=== PATIENT | female | born 1945 | race Caucasian/White ===

== ENCOUNTER 2019-11-12 11:51 | Outpatient (RCR) | payer MEDICARE, OTHER, SELFPAY ==
--- NOTE | 2019-11-12 13:09 | PTOPEVAL ---
Thank you for referring this patient to [facility]. Please review, sign, date and return this plan of care JOSE CARLOS. I agree with and certify that the following plan of care is medically necessary. Referring Physician Date Admitting Provider: Attending Provider: Nam Murillo MD Referring Provider: *PT Outpatient Evaluation Start: 11/12/19 12:07 Freq: Status: Active Protocol: Document 11/12/19 12:07 MARTINEZ (Rec: 11/12/19 12:40 MARTINEZ [id number]) Therapy Assessment Status Assessment Status Assessment Status Evaluation Evaluation Information Problem Diagnosis low back pain/weakness Onset 10/28/19 Subjective Information Pt. reports long hx of back Query Text:As Reported By Patient/ pain. she states that she Family deals with the pain using pain pills. She takes 2 different pain medications daily ( oxycotin and morphin). She reports that she has also noted some issues with her balance. She fell in the snow recently and couldnt get herself upright. She reports that her goal for therapy is to decrease pain and improve her balance. Prior Level of Function Activity Level (Last 3 Months) Hand Dominance Right Activity of Daily Living Ability Independent Indoor/Home Mobility Independent Community Mobility Independent Stairs Ability Independent Functional Cognition (Planning, Shopping Independent , Taking Medications) Cooking Yes Cleaning No Laundry Yes Shopping Yes Driving Yes Comments Additional Prior Level of Function Pt. reports that she cannot Comments mop or vacuum do to her back pain. Pain Assessment Pain Scale Pain Scale Used Numeric (1 - 10) Self Report Pain Assessment Lower Back Reported Pain Level 5 Pain Frequency Chronic,Continuous Current Pain Intensity 5 Lowest Pain Intensity 5 Greatest Pain Intensity 8 Pain Aggravating Factors ADL's,Bending,Exercise/ Activity,Lifting,Stair Climbing,Walking Pain Relief Interventions Used By Medication Patient Pain Score Pain Score 5: Self Report Cerv
--- NOTE | 2019-11-23 13:11 | PCPTNOTE ---
11/23/19- pt cancelled apt today secondary to illness. - HM.
--- NOTE | 2019-12-11 11:07 | PCPTNOTE ---
12/11/19 - patient has called and cancelled therapy for this date today. JTF
== END 2019-12-14 08:41 | disposition home or self-care (01) ==
LOC: CHSPT 11:51
PROVIDERS: Visit Provider Internal Medicine
DX: M54.5 Low back pain (principal); R53.1 Weakness
CPT/HCPCS: 97014; 97110; 97112; 97140; 97162; G0283

== ENCOUNTER 2021-05-08 13:51 | Outpatient (CLI) | payer MEDICARE, OTHER, SELFPAY ==
--- NOTE | ~2021-05-08 | DEXA_ITS ---
Bone Density Report Name: Eleonora Fregoso Age: 75 Sex: Female Ethnicity: White Date of : 1945 Indication: postmenopausal; screening for osteoporosis; Referring Provider: Nam Murillo Study: Bone densitometry was performed. Exam Date: May 08, 2021 Accession number: [id number] Bone Density: Region BMD T-score Z-score Classification AP Spine(L1, L2) 1.423 4.0 6.2 Normal Femoral Neck (Left) 0.573 -2.5 -0.5 Osteoporosis Total Hip (Left) 0.746 -1.6 0.1 Osteopenia Femoral Neck (Right) 0.610 -2.2 -0.2 Osteopenia Total Hip (Right) 0.766 -1.4 0.2 Osteopenia Femoral Neck Mean 0.592 -2.3 -0.3 Osteopenia Total Hip Mean 0.756 -1.5 0.2 Osteopenia World Health Organization criteria for BMD impression classify patients as: Normal (T-score at or above -1.0), Osteopenia (T-score between -1.0 and -2.5), or Osteoporosis (T-score at or below -2.5). 10-year Fracture Risk: FRAX not reported because: Some T-score for Spine Total or Hip Total or Femoral Neck at or below -2.5 Clinical Information Provided by Patient: Has used the following medications: Vitamin D, Calcium Patient maximum height was 68 Menopause Age: 52 No regular weight bearing exercise Drinks caffeinated beverages Onset of menses at age 15 Number of children 1 Impression: The patient has osteoporosis, based on the Left Femoral Neck T-score. Discussion: INCREASED RISK OF FRACTURE. BONE DENSITY IS UNDESIRABLY LOW AT ONE OR MORE SKELETAL SITES, CONSISTENT WITH POSTMENOPAUSAL OSTEOPOROSIS. This patient's lowest T-score meets the World Health Organization's (WHO) criteria for osteoporosis at one or more sites (T-score -2.5 or below). In untreated patients, the risk of osteoporotic fracture increases approximately two-fold for each 1.0 SD decrease in T-score. Low bone density is not the only risk factor for fracture; also consider factors such as patient's age, frailty or poor health, risk of falling, risk of injury, previous osteoporotic fracture, family history of osteoporosis, cigarette smoking, low body weight, etc. Not everyone with low bone mineral density has osteoporosis; osteomalacia and other metabolic bone disorders should also be considered. Patients who have osteoporosis should be evaluated for specific diseases and conditions (secondary causes) that may cause or contribute to bone loss. The [place] [employer] Endocrinologists (AACE) and National Osteoporosis Foundation (NOF) recommend pharmacologic intervention for all postmenopausal women whose T-score is in this range. The patient should follow a healthful lifestyle (good nutrition with adequate calcium and vitamin D, and appropriate weight-bearing exercise). Follow-Up: Consider a repeat BMD and Vertebral Fracture Assessment (VFA) exam in 2 yea
== END 2021-05-08 13:52 | disposition home or self-care (01) ==
LOC: CHSIMG 13:55
PROVIDERS: PCP Internal Medicine; Visit Provider Internal Medicine
DX: M81.0 Age-related osteoporosis without current pathological fracture (principal)
CPT/HCPCS: 77080

== ENCOUNTER 2021-06-06 13:01 | Outpatient (CLI) | payer MEDICARE, OTHER, SELFPAY ==
[2021-06-06 13:15] VITALS: BP 119/55; PULSE 77; RESP 16; TEMP 36.7; O2SAT 97
[2021-06-06] MEDS: DENOSUMAB 60 MG/ML SYRINGE SUB-Q (13:26)
--- NOTE | 2021-06-06 13:41 | PC.NURSE ---
13:15 Patient received 1st Prolia injection subcantaneously right upper outer arm. Patient tolerated well. Education information about Prolia given to patient. Patient waited for 15 minutes after injection. No side effects noted. No redness. No warmth at injection site. Patient safely left facility, ambulated with assist from her cane. --Choco Gregorio RN
== END 2021-06-06 13:02 | disposition home or self-care (01) ==
LOC: CHSOUTPT 13:06 → CHSTREATRM 13:12
PROVIDERS: PCP Internal Medicine; Visit Provider Internal Medicine
DX: M81.0 Age-related osteoporosis without current pathological fracture (principal)
CPT/HCPCS: 96372; J0897

== ENCOUNTER 2021-12-05 13:53 | Outpatient (CLI) | payer MEDICARE, OTHER, SELFPAY ==
[2021-12-05 14:04] VITALS: BMI 34.8
[2021-12-05 14:05] VITALS: BP 128/60; PULSE 76; RESP 14; TEMP 36.6; O2SAT 99
[2021-12-05] MEDS: DENOSUMAB 60 MG/ML SYRINGE SUB-Q (14:20)
--- NOTE | 2021-12-05 14:55 | PC.NURSE ---
Patient here for Prolia injection. She gets it q 6 months. Education given. No concerns. Has had it before. Prolia injection administered. Tolerated well. Safe exit of hospital. Will return April- will call closer to April to schedule.
== END 2021-12-05 13:54 | disposition home or self-care (01) ==
PROVIDERS: PCP Internal Medicine; Visit Provider Internal Medicine
DX: M81.0 Age-related osteoporosis without current pathological fracture (principal)
CPT/HCPCS: 96372; J0897

== ENCOUNTER 2022-05-10 13:13 | Outpatient (CLI) | payer MEDICARE, OTHER, SELFPAY ==
--- NOTE | 2022-05-10 13:20 | PC.NURSE ---
here for op injection
[2022-05-10] MEDS: DENOSUMAB 60 MG/ML SYRINGE SUB-Q (13:25)
--- NOTE | 2022-05-10 13:38 | PC.NURSE ---
discharged via wheel chair back to [facility] to collect her belongings to go home
== END 2022-05-10 13:14 | disposition home or self-care (01) ==
LOC: CHSTREATRM 13:15
PROVIDERS: PCP Internal Medicine; Visit Provider Internal Medicine
DX: M81.0 Age-related osteoporosis without current pathological fracture (principal)
CPT/HCPCS: 90853; 96372; J0897

== ENCOUNTER 2022-06-18 10:00 | Outpatient (RCR) | payer MEDICARE, OTHER, SELFPAY | END 2022-06-20 23:59 | disposition home or self-care (01) | LOC: CHSSENLIFE 10:00 | PROVIDERS: PCP Internal Medicine; Visit Provider Psychiatry & Neurology Psychiatry | DX: F33.2 Major depressive disorder, recurrent severe without psychotic features (principal); F41.9 Anxiety disorder, unspecified | CPT/HCPCS: 90792; 90837; 90853; 99213; G0463 ==

== ENCOUNTER 2022-08-08 16:26 | Outpatient (CLI) | payer MEDICARE, OTHER, SELFPAY ==
--- NOTE | ~2022-08-08 | XR_ITS ---
XR knee LT min 4V 08/08/2022 17:37 Indication: Left knee pain Procedure: 5 views left knee Comparison: 10/26/2019 Findings: There is severe tricompartment osteoarthritis of the left knee. Small joint effusion. No ac dino fracture, subluxation or dislocation. Impression: 1: Severe osteoarthritis of the left knee. Reviewed, dictated and finalized at location B. Impression: 1: Severe osteoarthritis of the left knee.
== END 2022-08-08 16:27 | disposition home or self-care (01) ==
LOC: CHSIMG 16:29
PROVIDERS: PCP Internal Medicine; Visit Provider Internal Medicine
DX: R51.9 Headache, unspecified (principal); M25.562 Pain in left knee; R11.0 Nausea
CPT/HCPCS: 73564

== ENCOUNTER 2022-08-25 09:49 | Outpatient (CLI) | payer MEDICARE, OTHER, SELFPAY ==
--- NOTE | ~2022-08-25 | MR_ITS ---
EXAMINATION: MR brain/brain stem wo con DATE: 08/25/2022 11:11 INDICATION: Severe headache. TECHNIQUE: Magnetic resonance imaging (MRI) of the brain and brainstem was performed without intraven ous contrast. COMPARISON: Brain MRI 03/13/2017 FINDINGS: There are scattered areas of nonspecific increased T2-weighted signal intensity in the cere bral white matter and emmett, which is within normal limits for the patient's age. There is no intracra nial hemorrhage, acute infarction, or abnormal intracranial mass lesion. The ventricles are normal in size. The orbits are normal. There is mild mucosal thickening in the paranasal sinuses. The mastoid air cells are normal. IMPRESSION: 1. Normal aging brain. Reviewed, dictated and finalized at location A. IMPRESSION: 1. Normal aging brain.
== END 2022-08-25 09:50 | disposition home or self-care (01) ==
LOC: CHSIMG 09:51
PROVIDERS: PCP Internal Medicine; Visit Provider Internal Medicine
DX: R51.9 Headache, unspecified (principal); R11.0 Nausea; M25.562 Pain in left knee
CPT/HCPCS: 70551

== ENCOUNTER 2022-09-20 10:00 | Outpatient (RCR) | payer MEDICARE, OTHER, SELFPAY | END 2022-09-23 23:59 | disposition home or self-care (01) | LOC: CHSSENLIFE 10:00 | PROVIDERS: PCP Internal Medicine; Visit Provider Psychiatry & Neurology Psychiatry | DX: F33.2 Major depressive disorder, recurrent severe without psychotic features (principal); F41.9 Anxiety disorder, unspecified | CPT/HCPCS: 90853; 99213; 99214; G0463 ==

== ENCOUNTER 2022-11-13 09:54 | Outpatient (CLI) | payer MEDICARE, OTHER, SELFPAY ==
[2022-11-13] MEDS: DENOSUMAB 60 MG/ML SYRINGE SUB-Q (10:11)
[2022-11-13 10:20] VITALS: BP 160/73; PULSE 86; RESP 14; TEMP 36.4; O2SAT 95
--- NOTE | 2022-11-13 10:22 | PC.NURSE ---
Patient here for q 6 month Prolia injection. Education given. No concerns voiced. Reports has tolerated all ones in the past. Prolia injection administered. SEE MAR. Tolerated well. Safe exit of OP room to [facility].
== END 2022-11-13 09:55 | disposition home or self-care (01) ==
LOC: CHSTREATRM 09:56
PROVIDERS: PCP Internal Medicine; Visit Provider Internal Medicine
DX: M81.0 Age-related osteoporosis without current pathological fracture (principal)
CPT/HCPCS: 90853; 96372; J0897

== ENCOUNTER 2022-12-19 10:00 | Outpatient (RCR) | payer MEDICARE, OTHER, SELFPAY ==
[2022-11-13 10:05] VITALS: BP 160/73; PULSE 86; RESP 14; TEMP 36.4; O2SAT 95
== END 2022-12-24 23:59 | disposition home or self-care (01) ==
LOC: CHSSENLIFE 10:00
PROVIDERS: PCP Internal Medicine; Visit Provider Psychiatry & Neurology Psychiatry
DX: F33.2 Major depressive disorder, recurrent severe without psychotic features (principal); F41.9 Anxiety disorder, unspecified
CPT/HCPCS: 90853; 99213; G0463

== ENCOUNTER 2023-03-11 14:41 | Outpatient (RCR) | payer MEDICARE, OTHER, SELFPAY ==
--- NOTE | 2023-03-11 15:39 | PTOPEVAL1 ---
Assessment and note entered by Su Majano DPT Evaluation Information Assessment Status Evaluation Diagnosis decreased balance Onset 03/11/23 Subjective Information Patient reports she has had 3 falls within the last month. She reports the falls have been at random with no dizziness reported. She has a cane with her out in the community and uses a walker at home. She does report all of her falls have been at home but has not been holding onto the walker. She reports her son lives next door and is able to help. She reports she complete all ADLs but has to be holding on at all times. Eleonora reports she has low back and L knee pain that occasionally keeps her from walking prolonged periods. Reported Pain Level Pain Score 5,3: Self Report Assessment PT Clinical Summary Patient is a 77 year old female who presents to PT with decreased balance. Patient presents with decreased B LE strength, decreased balance and impaired gait limiting her ability to ambulate, grocery shop and perform house hold tasks. She demonstrates as high fall risk with objective testing and would benefit from skilled PT to address impairments and return to PLOF. Plan of Care Interventions Gait Training,Hot Pack/Cold Pack,Manual Therapy, Neuro Re-education,Patient/Caregiver Educati, Therapeutic Activities,Therapeutic Exercise PT Services Indicated Yes Treatment Frequency and 2x weekly for 12 visits Duration These treatments will address the objective and functional deficits as defined above. The patient will be advanced safely and appropriately in order for the patient to progress towards his/her prior level of function. Additional exercises will be introduced and as well as a comprehensive home exercise program upon discharge, if needed, ?to ensure carryover of functional gains achieved in the clinic. This treatment plan has been reviewed and agreement upon by the patient.
== END 2023-03-18 20:00 | disposition home or self-care (01) ==
LOC: CHSPT 14:41
PROVIDERS: PCP Internal Medicine; Visit Provider Internal Medicine
DX: R25.1 Tremor, unspecified (principal); R26.81 Unsteadiness on feet; R29.6 Repeated falls
CPT/HCPCS: 97110; 97161

== ENCOUNTER 2023-03-21 10:00 | Outpatient (RCR) | payer MEDICARE, OTHER, SELFPAY ==
[2022-12-25 00:02] VITALS: BP 160/73; PULSE 86; RESP 14; TEMP 36.4; O2SAT 95
== END 2023-03-26 23:59 | disposition home or self-care (01) ==
LOC: CHSSENLIFE 10:00
PROVIDERS: PCP Internal Medicine; Visit Provider Psychiatry & Neurology Psychiatry
DX: F33.2 Major depressive disorder, recurrent severe without psychotic features (principal); F41.9 Anxiety disorder, unspecified
CPT/HCPCS: 90853; 99213; G0463

== ENCOUNTER 2023-03-25 10:47 | Outpatient (CLI) | payer MEDICARE, OTHER, SELFPAY ==
--- NOTE | ~2023-03-25 | XR_ITS ---
XR chest 2V 03/25/2023 11:15 Indication: Wheezing and cough Procedure: PA and lateral views the chest Comparison: Comparison to multiple prior studies sequentially, with oldest reviewed study dated 02/05. Findings: Heart size is normal. There is subtle left perihilar infiltrates. Right lung clear. Is a ca lcification in the left upper thorax. There is a calcified left hilar lymph node. Impression: 1: Subtle left perihilar infiltrates may represent atelectasis or developing pneumonia. Reviewed, dictated and finalized at location B. Impression: 1: Subtle left perihilar infiltrates may represent atelectasis or developing pn eumonia.
[2023-03-25 11:03] LABS: Basophils Percent Auto 0.5 % (0.0-1.0); Eosinophils Percent Auto 3.6 % (1.0-6.0); Hematocrit 35.5 % (35.0-42.0); Hemoglobin 11.8 g/dL (11.7-13.8); Immature Granulocyte Absolute 0.04 K/mm3 (0.00-0.00); Immature Granulocyte Percent A 0.5 % (0.0-0.0); Lymphocytes Percent Auto 19.2 % (18.0-42.0); Mean Corpuscular HGB Conc 33.2 g/dL (32.0-36.0); Mean Corpuscular Hemoglobin 30.1 pg (27.0-31.0); Mean Corpuscular Volume 90.6 fL (78.0-102.0); Mean Platelet Volume 8.8 fl (9.2-11.8); Monocytes Percent Auto 8.9 % (2.0-11.0); Neutrophils Absolute Auto 5.8 K/mm3 (1.7-7.2); Neutrophils Percent Auto 67.3 % (50.0-70.0); Platelet Count Result 255 K/mm3 (150-420); Red Blood Count 3.92 M/mm3 (4.20-5.40); White Blood Count 8.6 K/mm3 (4.8-10.8)
[2023-03-25 11:04] LABS: Basophils Absolute Auto 0.04 K/mm3 (0.00-0.10); Eosinophils Absolute Auto 0.31 K/mm3 (0.02-0.50); Lymphocytes Absolute Auto 1.66 K/mm3 (1.10-4.50); Monocytes Absolute Auto 0.77 K/mm3 (0.10-0.90)
[2023-03-25 11:18] LABS: Alanine Aminotransferase 16 U/L (14-59); Albumin Level 3.1 g/dL (3.4-5.0); Alkaline Phosphatase 73 U/L (46-116); Anion Gap 6 mmol/L (8-16); Aspartate Amino Transferase 19 U/L (15-37); Bilirubin,Total 0.4 mg/dL (0.00-1.00); Blood Urea Nitrogen 11 mg/dL (7-18); Carbon Dioxide 34 mmol/L (21-32); Chloride 94 mmol/L (98-108); Estimated Glomerular Filt Rate > 60; Glucose 113 mg/dL (70-99); Osmolality Calculated 278 mOsm/kg (285-295); Potassium 4.3 mmol/L (3.5-5.1); Sodium 134 mmol/L (136-145); Total Protein 6.8 g/dL (6.4-8.2)
== END 2023-03-25 10:48 | disposition home or self-care (01) ==
LOC: CHSLAB 10:50
PROVIDERS: PCP Internal Medicine; Visit Provider Internal Medicine
DX: R05.9 Cough, unspecified (principal); J96.90 Respiratory failure, unspecified, unspecified whether with hypoxia or hypercapnia; R91.8 Other nonspecific abnormal finding of lung field
CPT/HCPCS: 36415; 71046; 80053; 85025

== ENCOUNTER 2023-04-09 13:33 | Outpatient (CLI) | payer MEDICARE, OTHER, SELFPAY ==
--- NOTE | ~2023-04-09 | XR_ITS ---
Clinical Indication: Pneumonia PA and lateral views of the chest: Comparison: 03/25/2023 Findings: Stable calcified left upper lobe granuloma. The lungs are otherwise clear, without evidence of focal consolidation or pleural effusion. Cardiomediastinal silhouette is within normal limits. B ones and soft tissues are unremarkable. Impression: No acute abnormality. Stable calcified left upper lobe granuloma. Reviewed, dictated and finalized at location . Impression: No acute abnormality. Stable calcified left upper lobe granuloma.
== END 2023-04-09 13:34 | disposition home or self-care (01) ==
LOC: CHSIMG 13:35
PROVIDERS: PCP Internal Medicine; Visit Provider Internal Medicine
DX: J18.9 Pneumonia, unspecified organism (principal); J84.10 Pulmonary fibrosis, unspecified
CPT/HCPCS: 71046

== ENCOUNTER 2023-04-25 13:44 | Outpatient (CLI) | payer MEDICARE, OTHER, SELFPAY ==
[2023-04-25 14:04] LABS: Basophils Absolute Auto 0.02 K/mm3 (0.00-0.10); Basophils Percent Auto 0.3 % (0.0-1.0); Eosinophils Absolute Auto 0.06 K/mm3 (0.02-0.50); Hematocrit 36.8 % (35.0-42.0); Immature Granulocyte Absolute 0.03 K/mm3 (0.00-0.00); Immature Granulocyte Percent A 0.5 % (0.0-0.0); Lymphocytes Absolute Auto 1.61 K/mm3 (1.10-4.50); Lymphocytes Percent Auto 25.8 % (18.0-42.0); Mean Corpuscular HGB Conc 32.6 g/dL (32.0-36.0); Mean Platelet Volume 8.3 fl (9.2-11.8); Monocytes Absolute Auto 0.54 K/mm3 (0.10-0.90); Monocytes Percent Auto 8.6 % (2.0-11.0); Neutrophils Percent Auto 63.8 % (50.0-70.0); Platelet Count Result 289 K/mm3 (150-420); Red Cell Distribution Width 13.2 % (11.6-14.4); White Blood Count 6.3 K/mm3 (4.8-10.8)
[2023-04-25 15:23] LABS: Alanine Aminotransferase 20 U/L (14-59); Albumin Level 3.6 g/dL (3.4-5.0); Alkaline Phosphatase 62 U/L (46-116); Anion Gap 7 mmol/L (8-16); Aspartate Amino Transferase 13 U/L (15-37); Bilirubin,Total 0.4 mg/dL (0.00-1.00); Blood Urea Nitrogen 9 mg/dL (7-18); Calcium 9.1 mg/dL (8.5-10.1); Carbon Dioxide 33 mmol/L (21-32); Chloride 99 mmol/L (98-108); Estimated Glomerular Filt Rate > 60; Free T3 1.85 pg/mL (2.18-3.98); Free T4 Free Thyroxine 0.91 ng/dL (0.76-1.46); Glucose 132 mg/dL (70-99); Osmolality Calculated 288 mOsm/kg (285-295); Potassium 4.6 mmol/L (3.5-5.1); Sodium 139 mmol/L (136-145); Thyroid Stimulating Hormone 0.34 uIU/mL (0.36-3.74); Total Protein 6.5 g/dL (6.4-8.2)
== END 2023-04-25 13:45 | disposition home or self-care (01) ==
LOC: CHSLAB 13:46
PROVIDERS: PCP Internal Medicine; Visit Provider Internal Medicine
DX: E03.4 Atrophy of thyroid (acquired) (principal); R19.7 Diarrhea, unspecified
CPT/HCPCS: 36415; 80053; 84439; 84443; 84481; 85025; 90853; 99214; G0463

== ENCOUNTER 2023-05-03 10:31 | Outpatient (CLI) | payer MEDICARE, OTHER, SELFPAY ==
--- NOTE | ~2023-05-03 | US_ITS ---
EXAMINATION: US carotid duplex BI DATE: 05/03/2023 10:59 INDICATION: Carotid stenosis TECHNIQUE: Grayscale, color Doppler, and pulsed Doppler images of the cervical carotid arteries were obtained. The degree of vessel stenosis is placed in one of the following categories: normal, <50%, 5 0-69%, >=70% but less than near-occlusion, near-occlusion, or total occlusion. Note that percent sten osis relative to normal distal artery lumen diameter is indirectly measured from velocity measurement s as described by Servando, et al. Radiology 2003; 229:340-346. Notes: Normal: Peak systolic velocity <125 centimeters/sec and no plaque <50%. Peak systolic velocity <125 ( EDV <40; ICA/CCA PSV ratio <2.0; used these factors only a tandem lesions or low cardiac output or co ntralateral disease) 50-69 %: PSV 125-230 (EDV 40-100; ratio 2-4) >= 70% but less than near occlusion: PSV greater than 230 (EDV > 100; ratio> 4.0) Near Occlusion: PSV that is variable; markedly narrowed lumen Occlusion: Absent flow on color/spectral Doppler and no lumen on simpson scale. COMPARISON: None. FINDINGS: RIGHT: The right common carotid artery (CCA) peak systolic velocity (PSV) is 72 cm/s. The right internal car otid artery (ICA) PSV is 76 cm/s. The right ICA end-diastolic velocity (EDV) is 19 cm/s. The right IC A/CCA PSV ratio is 1.1. The external carotid artery (ECA) PSV is 100 cm/s. There is antegrade flow in the right vertebral artery. LEFT: The left CCA PSV is 85 cm/s. The left ICA PSV is 70 cm/s. The left ICA EDV is 20 cm/s. The left ICA/C CA PSV ratio is 0.8. The ECA PSV is 120 cm/s. There is antegrade flow in the left vertebral artery. IMPRESSION: 1. Less than 50% stenosis in the right internal carotid artery by sonographic criteria. 2. Less than 50% stenosis in the left internal carotid artery by sonographic criteria. Reviewed, dictated and finalized at location [] IMPRESSION: 1. Less than 50% stenosis in the right internal carotid artery by sonographic grace mcginnis. 2. Less than 50% stenosis in the left internal carotid artery by sonographic stacey garcia.
== END 2023-05-03 10:32 | disposition home or self-care (01) ==
LOC: CHSIMG 10:33
PROVIDERS: PCP Internal Medicine; Visit Provider Internal Medicine
DX: I65.23 Occlusion and stenosis of bilateral carotid arteries (principal)
CPT/HCPCS: 93880

== ENCOUNTER 2023-05-23 09:45 | Outpatient (CLI) | payer MEDICARE, OTHER, SELFPAY ==
[2023-05-23 09:56] VITALS: BP 131/74; PULSE 76; RESP 14; TEMP 36.6; O2SAT 95
[2023-05-23 09:57] VITALS: BMI 22.1
[2023-05-23] MEDS: DENOSUMAB 60 MG/ML SYRINGE SUB-Q (10:01)
--- NOTE | 2023-05-23 10:03 | PC.NURSE ---
Patient here for her Q 6month Prolia injection. Education given. No concerns voiced. Prolia injection administered. See MAR. Tolerated well. Safe exit to [facility] session per wc.
== END 2023-05-23 09:46 | disposition home or self-care (01) ==
LOC: CHSTREATRM 09:50
PROVIDERS: PCP Internal Medicine; Visit Provider Internal Medicine
DX: M81.0 Age-related osteoporosis without current pathological fracture (principal)
CPT/HCPCS: 96372; J0897

== ENCOUNTER 2023-06-10 12:44 | Outpatient (CLI) | payer MEDICARE, OTHER, SELFPAY ==
--- NOTE | ~2023-06-10 | DEXA_ITS ---
Bone Density Report Name: MICHELLE SANCHEZ Age: 77 Sex: Female Ethnicity: White Date of : 1945 Indication: postmenopausal; screening for osteoporosis; Referring Provider: Nam Murillo Study: Bone densitometry was performed. Exam Date: June 10, 2023 Accession number: [id number] Bone Density: Region BMD T-score Z-score Classification AP Spine(L1, L2) 1.191 1.9 4.2 Normal Femoral Neck (Left) 0.561 -2.6 -0.5 Osteoporosis Total Hip (Left) 0.757 -1.5 0.3 Osteopenia Femoral Neck (Right) 0.616 -2.1 0.0 Osteopenia Total Hip (Right) 0.770 -1.4 0.4 Osteopenia Femoral Neck Mean 0.588 -2.4 -0.2 Osteopenia Total Hip Mean 0.764 -1.5 0.3 Osteopenia World Health Organization criteria for BMD impression classify patients as: Normal (T-score at or above -1.0), Osteopenia (T-score between -1.0 and -2.5), or Osteoporosis (T-score at or below -2.5). 10-year Fracture Risk: FRAX not reported because: Some T-score for Spine Total or Hip Total or Femoral Neck at or below -2.5 Clinical Information Provided by Patient: Has used the following medications: Vitamin D, Calcium Patient maximum height was 68 Menopause Age: 52 No regular weight bearing exercise Drinks caffeinated beverages Onset of menses at age 15 Number of children 1 Impression: The patient has osteoporosis, based on the Left Femoral Neck T-score. Discussion: INCREASED RISK OF FRACTURE. BONE DENSITY IS UNDESIRABLY LOW AT ONE OR MORE SKELETAL SITES, CONSISTENT WITH POSTMENOPAUSAL OSTEOPOROSIS. This patient's lowest T-score meets the World Health Organization's (WHO) criteria for osteoporosis at one or more sites (T-score -2.5 or below). In untreated patients, the risk of osteoporotic fracture increases approximately two-fold for each 1.0 SD decrease in T-score. Low bone density is not the only risk factor for fracture; also consider factors such as patient's age, frailty or poor health, risk of falling, risk of injury, previous osteoporotic fracture, family history of osteoporosis, cigarette smoking, low body weight, etc. Not everyone with low bone mineral density has osteoporosis; osteomalacia and other metabolic bone disorders should also be considered. Patients who have osteoporosis should be evaluated for specific diseases and conditions (secondary causes) that may cause or contribute to bone loss. The [place] [employer] Clinical Endocrinologists (AACE) and National Osteoporosis Foundation (NOF) recommend pharmacologic intervention for all postmenopausal women whose T-score is in this range. The patient should follow a healthful lifestyle (good nutrition with adequate calcium and vitamin D, and appropriate weight-bearing exercise). Follow-Up: Consider a repeat BMD and Vertebral Fracture Assessment (VFA) exam in 2 years or sooner if medically necessary, to reassess this patient's status. Reported by:
== END 2023-06-10 12:45 | disposition home or self-care (01) ==
LOC: CHSIMG 12:45
PROVIDERS: PCP Internal Medicine; Visit Provider Internal Medicine
DX: Z78.0 Asymptomatic menopausal state (principal); M81.0 Age-related osteoporosis without current pathological fracture; M85.89 Other specified disorders of bone density and structure, multiple sites
CPT/HCPCS: 77080

== ENCOUNTER 2023-06-11 09:51 | Outpatient (CLI) | payer MEDICARE, OTHER, SELFPAY ==
--- NOTE | ~2023-06-11 | XR_ITS ---
EXAMINATION: XR knee LT min 4V DATE: 06/11/2023 10:19 INDICATION: Left knee pain. TECHNIQUE: 4 views of left knee were obtained. COMPARISON: Left knee radiographs 08/08/2022 FINDINGS: There is lateral subluxation of patella. No fracture. There is severe osteoarthritis of med ial and patellofemoral compartments and moderate osteoarthritis of lateral compartment. There is a sm all knee joint effusion with loose body. IMPRESSION: 1. Severe left knee osteoarthritis. 2. Small left knee joint effusion with loose body. Reviewed, dictated and finalized at location A.
== END 2023-06-11 09:52 | disposition home or self-care (01) ==
LOC: CHSIMG 09:54
PROVIDERS: PCP Internal Medicine; Visit Provider Orthopaedic Surgery
DX: M25.562 Pain in left knee (principal); M17.12 Unilateral primary osteoarthritis, left knee; M25.462 Effusion, left knee; M23.42 Loose body in knee, left knee
CPT/HCPCS: 73564

== ENCOUNTER 2023-07-03 10:00 | Outpatient (RCR) | payer MEDICARE, OTHER, SELFPAY ==
[2023-03-27 00:01] VITALS: BP 160/73; PULSE 86; RESP 14; TEMP 36.4; O2SAT 95
== END 2023-07-03 23:59 | disposition home or self-care (01) ==
LOC: CHSSENLIFE 10:00
PROVIDERS: PCP Internal Medicine; Visit Provider Psychiatry & Neurology Psychiatry
DX: F33.2 Major depressive disorder, recurrent severe without psychotic features (principal); F41.9 Anxiety disorder, unspecified
CPT/HCPCS: 90853; 99213; 99214; G0463

== ENCOUNTER 2023-09-27 19:26 | Emergency (ER) | payer MEDICARE, OTHER, SELFPAY ==
--- NOTE | ~2023-09-27 | XR_ITS ---
EXAMINATION: XR hip LT min 2V DATE: 09/27/2023 19:43 INDICATION: Posterior left hip pain post fall TECHNIQUE: Anteroposterior and cross-table lateral views of the left hip were obtained. COMPARISON: 05/16/2018 FINDINGS: Bone alignment is normal. No fracture or suspected osteonecrosis. Mild left hip osteoarthritis with m ild axial predominant nonuniform joint space narrowing. Moderate left and mild right sacroiliac osteo arthritis. L4 laminectomy and combined instrumented anterior and posterior spinal fusion from L3-L5. IMPRESSION: 1. Mild left hip osteoarthritis. No acute osseous abnormality. Reviewed, dictated and finalized at location A. [employer]
--- NOTE | 2023-09-27 19:28 | ED.FALL ---
HPI - Fall General Chief Complaint: Fall Stated Complaint: Fall Time Seen by Provider: 09/27/23 19:27 Source: patient, EMS and RN notes reviewed Mode of arrival: EMS Limitations: no limitations History of Present Illness HPI Narrative: patient states she slipped down a couple of stairs and fell onto her left hip. She thinks she may have hit her head but EMS palpated her scalp and found no pain whatsoever and she denies any pain anywhere else but her left hip. His the pain in her hip is 2/3. She has to go to the bathroom and actually used a walker to walk down to the bathroom. MD complaint: fall Onset (ago): minute(s) (30) Fall from: down stairs (#) (2) Fall witnessed: yes, by bystander Place fall occurred: home Loss of consciousness: none Prolonged down time: no Symptoms prior to fall: none Context: tripped/slipped Location of injury - extremities: Left: thigh Severity: mild Quality: dull and aching Associated symptoms (after fall): denies Related Data Home Medications Medication Instructions Recorded Confirmed aripiprazole 5 mg tablet (Abilify) 5 mg PO DAILY 09/27/23 09/27/23 buspirone 10 mg tablet 10 mg PO DAILY 09/27/23 09/27/23 calcitriol 0.5 mcg capsule 0.5 mcg PO DAILY 09/27/23 09/27/23 (Rocaltrol) cyclobenzaprine 10 mg tablet 10 mg PO DAILY 09/27/23 09/27/23 duloxetine 60 mg capsule,delayed 60 mg PO DAILY 09/27/23 09/27/23 release (Cymbalta) ergocalciferol (vitamin D2) 1,250 1,250 mcg PO DAILY 09/27/23 09/27/23 mcg (50,000 unit) capsule (Vitamin D2) gabapentin 400 mg capsule 400 mg PO DAILY 09/27/23 09/27/23 (Neurontin) hydroxyzine HCl 25 mg tablet 25 mg PO DAILY 09/27/23 09/27/23 levothyroxine 100 mcg tablet 100 mcg PO DAILY 09/27/23 09/27/23 (Synthroid) lisinopril 2.5 mg tablet (Zestril) 2.5 mg PO DAILY 09/27/23 09/27/23 metformin 500 mg tablet 500 mg PO DAILY 09/27/23 09/27/23 morphine 15 mg tablet,extended 15 mg PO DAILY 09/27/23 09/27/23 release (MS Contin) oxycodone-acetaminophen 10 mg-325 1 tablet PO QID PRN Pain 09/27/23 09/27/23 mg tablet (Percocet) pravastatin 20 mg tablet 20 mg PO DAILY 09/27/23 09/27/23 Allergies Allergy/AdvReac Type Severity Reaction Status Date / Time NSAIDS (Non-Steroidal AdvReac Mild Unknown Verified 06/17/23 11:43 Anti-Inflamma Review of Systems Review of Systems: All systems reviewed & are unremarkable except as noted in HPI and below PMFSH Past Medical History Medical History (Updated 09/28/23 @ 00:00 by Robel Crump) Arthritis Hypertension Hypothyroidism Left knee DJD Type 2 diabetes mellitus Surgical History Surgical History H/O gastric bypass History of back surgery History of total right knee replacement Family History Family History (Updated 06/17/23 @ 11:46 by Judith Soto [facility]) Unknown Depression Diabetes mellitus Arthritis Neuropathy Social History Social History Smoking status: Never smoker Alcohol intake: never Substance use: never Gender identity (if verbalized by the patient): Female Exam Const: General: healthy appearing, no acute distress and alert Nutritional Appearance: well nourished Orientation/consciousness: patient oriented x3 Limitations: no limitations HENMT: Head: normal to inspection, no contusions and no hematomas Ears: external ears normal Face/Nose/Sinus: Normal external nose present Face and sinus: normal facial exam Mouth: Yes moist mucous membranes Eyes: Conjunctivae: conjunctivae normal Pupils: Equal, round and reactive pupils present EOM: EOMs intact bilaterally Neck: Neck: normal visual inspection Resp: Effort & Inspection: normal respiratory effort Auscultation: clear to auscultation bilaterally Cardio: Rate: regular rate Rhythm: regular rhythm GI: GI Palp: Yes Soft to palpation and No Tenderness to palpation present (GI) Auscultation: norm
[2023-09-27 19:40] VITALS: BP 149/79; PULSE 85; RESP 18; TEMP 36.6; O2SAT 97
== END 2023-09-27 20:10 | disposition home or self-care (01) ==
PROVIDERS: Emergency Provider Emergency Medicine; PCP Internal Medicine
DX: S70.02XA Contusion of left hip, initial encounter (principal); I10 Essential (primary) hypertension; E03.9 Hypothyroidism, unspecified; E11.9 Type 2 diabetes mellitus without complications; Z79.899 Other long term (current) drug therapy; Z79.84 Long term (current) use of oral hypoglycemic drugs; Z79.891 Long term (current) use of opiate analgesic; W01.0XXA Fall on same level from slipping, tripping and stumbling without subsequent striking against object, initial encounter; Y92.009 Unspecified place in unspecified non-institutional (private) residence as the place of occurrence of the external cause
CPT/HCPCS: 73502; 99283

== ENCOUNTER 2023-10-02 10:00 | Outpatient (RCR) | payer MEDICARE, OTHER, SELFPAY ==
[2023-07-04 00:03] VITALS: BP 160/73; PULSE 86; RESP 14; TEMP 36.4; O2SAT 95
[2023-09-18 10:13] VITALS: BP 106/60; PULSE 77; RESP 20; TEMP 36.7; O2SAT 96
[2023-09-19 10:29] VITALS: BP 115/65; PULSE 72; RESP 20; TEMP 36.4; O2SAT 96
--- NOTE | 2023-09-19 11:03 | PC.NURSE ---
No nursing group due to MD visit.
--- NOTE | 2023-09-25 09:22 | PC.NURSE ---
Eleonora called and reported she would not be attending her group session today due to not feeling well.
--- NOTE | 2023-09-26 09:42 | PC.NURSE ---
No nursing group due to MD visit.
[2023-09-26 10:16] VITALS: BP 114/66; PULSE 88; RESP 20; TEMP 36.4; O2SAT 99
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
--- NOTE | 2023-10-01 08:34 | PC.NURSE ---
The patient called this morning and reported she was not feeling well enough to come to her scheduled session after her fall on Saturday. She hopes to be able to attend tomorrow.
--- NOTE | 2023-10-02 10:01 | PC.NURSE ---
No nursing group today due to MD visit.
[2023-10-02 10:17] VITALS: BP 132/75; PULSE 80; RESP 20; TEMP 36.2; O2SAT 92
== END 2023-10-02 23:59 | disposition home or self-care (01) ==
LOC: CHSSENLIFE 10:00
PROVIDERS: PCP Internal Medicine; Visit Provider Psychiatry & Neurology Psychiatry
DX: F33.2 Major depressive disorder, recurrent severe without psychotic features (principal); F41.9 Anxiety disorder, unspecified
CPT/HCPCS: 73502; 90853; 99213; 99214; 99283; G0463

== ENCOUNTER 2023-10-21 14:34 | Outpatient (CLI) | payer MEDICARE, OTHER, SELFPAY ==
--- NOTE | ~2023-10-21 | XR_ITS ---
EXAMINATION: XR lumbar spine 2-3V, XR sacrum coccyx min 2V DATE: 10/21/2023 15:09 INDICATION: Low back and sacrococcygeal pain post fall 4 weeks prior. TECHNIQUE: 1. Anteroposterior and lateral views of the lumbar spine, and cone-down lateral view of the lumbosacr al junction were obtained. 2. AP, angled AP and lateral views of the sacrum and coccyx were obtained. COMPARISON: 09/03/14 FINDINGS: Lumbar spine: Transitional T12 segment with hypoplastic right-sided riblet and left-sided transverse process. 12 de grees lumbar levoscoliosis. Interval L3 and L4 laminectomies and combined instrumented L3-L5 anterior and posterior spinal fusion with bone graft cages at both levels and bilateral vertical stanislav and pedi elena screw fixation. 3-4 mm anterolisthesis L3 on L4. Severe disc height loss at L2-L3. Moderate disc height loss at L1-L2 and at multiple levels in the lower thoracic spine. Sacrum and coccyx: There is a fracture extending across the S4 segment with 4 mm anterior displacement. Moderate bilater al sacroiliac osteoarthritis. Mild bilateral hip osteoarthritis. IMPRESSION: 1. Similar anterior displacement of the sacrum inferior to the transverse fracture at the level of S4 . 2. L3 and L4 laminectomies and combined instrumented L3-L5 anterior and posterior spinal fusion. 3. Mild lumbar levoscoliosis with moderate to severe spondylosis of the lumbar spine cephalad to the fusion. Reviewed, dictated and finalized at location A. BURSEMENT AUDITOR IMPRESSION: 1. Similar anterior displacement of the sacrum inferior to the transverse fract ure at the level of S4. 2. L3 and L4 laminectomies and combined instrumented L3-L5 anterior and posteri or spinal fusion. 3. Mild lumbar levoscoliosis with moderate to severe spondylosis of the lumbar spine cephalad to the fusion.
== END 2023-10-21 14:35 | disposition home or self-care (01) ==
LOC: CHSIMG 14:39
PROVIDERS: PCP Internal Medicine; Visit Provider Internal Medicine
DX: M54.50 Low back pain, unspecified (principal); S39.92XA Unspecified injury of lower back, initial encounter; S32.19XA Other fracture of sacrum, initial encounter for closed fracture; Z98.1 Arthrodesis status; M41.86 Other forms of scoliosis, lumbar region; M43.06 Spondylolysis, lumbar region
CPT/HCPCS: 72100; 72220

== ENCOUNTER 2023-10-23 09:34 | Outpatient (CLI) | payer MEDICARE, OTHER, SELFPAY ==
--- NOTE | ~2023-10-23 | CT_ITS ---
EXAMINATION: CT lumbar spine wo con DATE: 10/23/2023 10:07 INDICATION: Fracture of sacrum and lower lumbar vertebrae. Low back pain. TECHNIQUE: Computed tomography (CT) of the lumbar spine was performed without intravenous contrast. A utomated exposure control and iterative reconstruction technique were employed. The dose-length produ ct was 1691.75 mGy-cm. COMPARISON: Lumbar spine radiographs 10/21/2023 FINDINGS: Calcifications in the spleen are consistent with old granulomatous disease. There is a 2.6 cm mass in left adrenal gland measuring soft tissue attenuation. There is calcified atherosclerosis o f the aorta and many of the other arteries. There is 4 degrees levocurvature of lumbar spine. There a re changes of anterior and posterior fusion procedures from L3 to L5 with interbody devices and pedic le screws. There is moderately decreased disc height at T11-T12 and L1-L2 and severely decreased disc height at L2-L3 with endplate remodeling. There are laminectomies at L3 and L4. There is a transvers e fracture of the L4 segment of the sacrum with early callus formation. The following disc levels are specifically discussed: L1-L2: The disc is bulging. There is severe bilateral facet joint osteoarthritis. There is mild bilat eral neural foraminal stenosis. There is mild central canal stenosis. L2-L3: The disc is bulging. There is severe bilateral facet joint osteoarthritis. There is moderate b ilateral neural foraminal stenosis. There is mild central canal stenosis. L3-L4: The interbody devices extend beyond the posterior margins of the endplates. There is no facet joint hypertrophy. There is no neural foraminal stenosis. There is no central canal stenosis. L4-L5: The interbody devices extend beyond the posterior margins of the endplates. There is no facet joint hypertrophy. There is no neural foraminal stenosis. There is no central canal stenosis. L5-S1: The disc is bulging. There is severe bilateral facet joint osteoarthritis. There is mild bilat eral neural foraminal stenosis. There is mild central canal stenosis. IMPRESSION: 1. Healing transverse fracture of S4 segment of the sacrum. 2. Severe lumbar spondylosis. 3. Anterior and posterior fusion procedures from L3 to L5. Reviewed, dictated and finalized at location A. ING MIXER
== END 2023-10-23 09:35 | disposition home or self-care (01) ==
LOC: CHSIMG 09:38
PROVIDERS: PCP Internal Medicine; Visit Provider Internal Medicine
DX: S32.19XD Other fracture of sacrum, subsequent encounter for fracture with routine healing (principal); M43.06 Spondylolysis, lumbar region; Z98.1 Arthrodesis status
CPT/HCPCS: 72131

== ENCOUNTER 2023-12-04 13:33 | Outpatient (CLI) | payer MEDICARE, OTHER, SELFPAY ==
[2023-12-04 13:39] VITALS: BP 135/70; PULSE 80; RESP 20; TEMP 36.6; O2SAT 99
[2023-12-04] MEDS: DENOSUMAB 60 MG/ML SYRINGE SUB-Q (13:45)
--- NOTE | 2023-12-04 13:48 | PC.NURSE ---
Patient here for q 6 month Prolia injection. Education given. No concerns voiced. Prolia injection administered. SEE MAR. Tolerated well. Patient will be called in May 2024 to set up next appt. Will need a new order. Safe exit of hospital per wc/staff to car.
== END 2023-12-04 13:34 | disposition home or self-care (01) ==
LOC: CHSTREATRM 13:36
PROVIDERS: PCP Internal Medicine; Visit Provider Internal Medicine
DX: M81.0 Age-related osteoporosis without current pathological fracture (principal)
CPT/HCPCS: 96372; J0897

== ENCOUNTER 2024-01-09 11:00 | Outpatient (RCR) | payer MEDICARE, OTHER, SELFPAY ==
[2023-10-03 00:01] VITALS: BP 132/75; PULSE 80; RESP 20; TEMP 36.2; O2SAT 92
--- NOTE | 2023-10-17 11:50 | WPDSLSPROGRE ---
Progress HPI Progress HPI Visit Attended By patient and staff History Obtained From patient Chief Complaint Three week follow-up for depression anxiety HPI this is a routine follow-up for depression and anxiety. Patient enjoys the program participates well. She had a good Thanksgiving with her son and his girlfriend. She had a recent fall, and presumably sustained no serious injury but she says that her tailbone is extremely sore. She does not want to have to wait until Saturday to see the doctor so I suggested that she contact his office to see if they can order an x-ray. She continues on BuSpar 10 mg t.i.d., Cymbalta 120 mg q.day, Abilify 5 mg q.a.m., Remeron 15 mg q.h.s.. Difficulty sleeping due to pain. Average Number of Hours of Sleep 8 Sleep Quality difficulty falling asleep and frequent awakening Change in PMFSH Releveant to Presenting Illness Yes Describe Changes in PMFSH as above Review of Systems Review of Systems Constitutional Reports denies change Eyes Reports WNL ENT Reports WNL Respiratory Reports WNL Cardiovascular Reports WNL ( Hypertension, peripheral vascular disease) Gastrointestinal Reports WNL ( GERD) Musculoskeletal Reports WNL ( osteoarthritis, degenerative joint disease, spinal stenosis, tailbone pain), Reports abnormal gait, Reports assistive device, Reports diminished strength and Reports muscle stiffness Neurologic Reports WNL ( diabetic neuropathy, restless leg syndrome, migraines) Skin Reports WNL ( burn injury, healing) ADL's Reports WNL Exam Physical Exam Review of Lab Studies n/a Hygiene good General Behavior/Attitude Toward Examiner pleasant and cooperative Pain Yes Pain Location tailbone Pain Characteristics acute and sharp Psychiatric Exam Level of Consciousness alert Orientation person, place, time and situation Speech normal rate/tone/volume/prosody and coherent Language able to comprehend questions Mood less depressed Affect full range, appropriate and congruent Thought Processes/Form logical, linear and goal directed Thought Content diminished depressive symptoms, preoccupied with pain Delusions none Homicidal/Assaultive Ideation none Suicidal Ideation none Hallucinations none Attention/Concentration focused Attention/Concentration Testing Methods observation/interview Short Term Memory Impairment none STM Testing Methods clinical interview (assessment/observation) Longterm Memory Impairment none LTM Testing Methods recall of historical events Intellectual Functioning roughly average Intellectual Functioning Assessed By fund of knowledge Insight fair Insight Assessed By ability to recognize & acknowledge mental illness, ability to understand the implications of mental illness, understanding of treatment options and ability to comply with treatment Judgement fair Judgement Assessed By exploring recent decision-making MMSE n/a Patient Assets patient is willing to accept treatment Patient Liabilities patient has multiple medical illnesses, prolonged grief Assessment and Plan Clinical Impression/Diag Clinical Impression/Diagnosis F 33.2, major depressive disorder, recurrent episode, severe F 41.9, unspecified anxiety disorder patient is progressing well Progress Overview Reason for Continued Services in an Intensive Outpatient Program continued impaired mood and.or depression, patient would decompenste at a lower level of care, not at baseline level of functioning and high risk for relapse Treatment To Be Provided medication management and group/individual/rec therapy Discharge Disposition/Level of Care PCP Anticipated Discharge 8-12 weeks Certification Statement Certification Statement I believe this patient requires the services of the Intensive Outpatient Program
--- NOTE | 2023-10-22 11:36 | PC.NURSE ---
The patient called and will not be attending her scheduled group day tomorrow due to a MD appointment.
--- NOTE | 2023-10-24 11:01 | PC.NURSE ---
The patient did not call and did not show up to her scheduled appointment.
--- NOTE | 2023-10-29 08:46 | PC.NURSE ---
The patient called and let this nurse know that she would not be attending her scheduled session today due to pain from her tailbone post fall.
--- NOTE | 2023-10-31 09:38 | PC.NURSE ---
No nursing group due to MD visit.
--- NOTE | 2023-10-31 11:32 | WPDSLSPROGRE ---
Progress HPI Progress HPI Visit Attended By patient and staff History Obtained From patient Chief Complaint Routine follow-up for depression and anxiety HPI this is a routine follow-up. Patient is not doing well in terms of her depression and anxiety, mainly because it is [place] and she still misses her terribly. She also sound out that she actually fractured her tailbone, but at least the pain is not keeping her up as much at night as before. she has not been here much at all the past month due to the pain. Patient plans to spend [place] with her son and his girlfriend. She continues on BuSpar 10 mg t.i.d., Cymbalta 120 mg q.day, Abilify 5 mg q.a.m., Remeron 15 mg q.h.s.. her burn has finally healed for the most part. Average Number of Hours of Sleep 8 Sleep Quality difficulty falling asleep and frequent awakening Change in PMFSH Releveant to Presenting Illness Yes Describe Changes in PMFSH As above Review of Systems Review of Systems Constitutional Reports denies change Eyes Reports WNL ENT Reports WNL Respiratory Reports WNL Cardiovascular Reports WNL ( hypertension, peripheral vascular disease) Gastrointestinal Reports WNL ( GERD) Musculoskeletal Reports WNL ( osteoarthritis, degenerative joint disease, spinal stenosis, tailbone frac), Reports abnormal gait, Reports assistive device, Reports diminished strength and Reports muscle stiffness Neurologic Reports WNL ( diabetic neuropathy, restless leg syndrome, migraines) Skin Reports WNL ADL's Reports WNL Exam Physical Exam Review of Lab Studies n/a Hygiene good and disheveled General Behavior/Attitude Toward Examiner pleasant and cooperative Pain Yes Pain Location Tailbone, generalized Pain Characteristics acute and aching Psychiatric Exam Level of Consciousness alert Orientation person, place, time and situation Speech normal rate/tone/volume/prosody and coherent Language able to name objects, able to repeat phrases, able to comprehend questions and able to follow instructions or commands Mood depressed, anxious Affect full range, appropriate and congruent Thought Processes/Form logical, linear and goal directed Thought Content depressive and anxiety symptoms Delusions none Homicidal/Assaultive Ideation none Hallucinations none Attention/Concentration focused Attention/Concentration Testing Methods observation/interview Short Term Memory Impairment none STM Testing Methods clinical interview (assessment/observation) LTM Testing Methods recall of biographical information Intellectual Functioning roughly average Intellectual Functioning Assessed By current events Insight fair and improving Insight Assessed By ability to recognize & acknowledge mental illness, ability to understand the implications of mental illness, understanding of treatment options and ability to comply with treatment Judgement improving Judgement Assessed By exploring recent decision-making MMSE n/a Patient Assets patient is willing to accept treatment Patient Liabilities multiple medical issues, prolonged grief Assessment and Plan Clinical Impression/Diag Clinical Impression/Diagnosis F 33.2, F 41.9, progressing well Progress Overview Reason for Continued Services in an Intensive Outpatient Program continued impaired mood and.or depression, patient would decompenste at a lower level of care, not at baseline level of functioning and high risk for relapse Treatment To Be Provided medication management and group/individual/rec therapy Discharge Disposition/Level of Care PCP Anticipated Discharge 8-12 weeks Certification Statement Certification Statement I believe this patient requires the services of the Intensive Outpatient Program and that there is reasonable expectation that the pa
[2023-10-31 14:39] VITALS: BP 141/77; PULSE 78; RESP 20; TEMP 36.3; O2SAT 97
[2023-11-06 09:46] VITALS: BP 131/62; PULSE 75; RESP 22; TEMP 36.6; O2SAT 95
[2023-11-07 09:40] VITALS: BP 141/70; PULSE 89; RESP 20; TEMP 36.4; O2SAT 97
--- NOTE | 2023-11-07 10:57 | PC.NURSE ---
This nurse called and spoke with the pharmacist at [facility] pharmacy in [place] to refill the medications Hydroxyzine 25mg PO three times per day PRN X 30 days and Buspar 10mg PO three times per day X 30 days.
[2023-11-13 10:28] VITALS: BP 123/64; PULSE 82; RESP 20; TEMP 36.3; O2SAT 94
--- NOTE | 2023-11-13 15:25 | PC.NURSE ---
No nursing group today due to administrative meeting.
--- NOTE | 2023-11-14 10:00 | PC.NURSE ---
No nursing group due to MD visit.
[2023-11-14 10:42] VITALS: BP 130/63; PULSE 88; RESP 20; TEMP 36.4; O2SAT 97
--- NOTE | 2023-11-18 15:34 | PC.NURSE ---
The patient called and reported that she was not feeling well and would not be attending her scheduled session today.
--- NOTE | 2023-11-20 08:19 | PC.NURSE ---
The patient called and reported that she had a migraine and would not be making her scheduled session today.
--- NOTE | 2023-11-20 14:36 | PC.NURSE ---
This nurse called and spoke with Susana at [facility] in [place] to refill the patient's Mirtazapine 7.5mg PO every evening X 30 days.
--- NOTE | 2023-11-27 10:04 | PC.NURSE ---
No nursing group due to meeting.
[2023-11-27 10:13] VITALS: BP 143/85; PULSE 86; RESP 20; TEMP 36.9; O2SAT 92
[2023-11-28 10:16] VITALS: BP 138/81; PULSE 83; RESP 20; TEMP 37.1; O2SAT 98
--- NOTE | 2023-11-28 10:59 | PC.NURSE ---
No nursing group due to MD visit.
--- NOTE | 2023-11-28 12:11 | WPDSLSPROGRE ---
Progress HPI Progress HPI Visit Attended By patient and staff History Obtained From patient Chief Complaint Four-week follow-up for depression and anxiety HPI this is a routine follow-up. Patient says she is glad that [place] is over, and still experiences prolonged grief over her . She did spend part of the holiday with her son, which was good, but says she thinks she even feels more depressed now, and says that most of it is because of her . Patient does attend the program twice a week, enjoys and participates well . Gets about 6 hours sleep at night, low energy, poor appetite, but will eat if someone cooks for her. She continues on BuSpar 10 mg t.i.d., Cymbalta 120 mg q.day, Abilify 5 mg q.a.m., Remeron 15 mg q.h.s.. The pain in her tailbone is a lot better. She did fall again about a week ago, but sustained no serious injury. Average Number of Hours of Sleep 6 Sleep Quality difficulty falling asleep and frequent awakening Change in PMFSH Releveant to Presenting Illness Yes Describe Changes in PMFSH recent fall Review of Systems Review of Systems Constitutional Reports denies change Eyes Reports WNL ENT Reports WNL Respiratory Reports WNL Cardiovascular Reports other ( Hypertension, peripheral vascular disease) Gastrointestinal Reports other ( GERD) Musculoskeletal Reports abnormal gait, Reports assistive device, Reports diminished strength, Reports muscle stiffness and Reports other ( osteoarthritis, degenerative joint disease, spinal stenosis, tailbone fx) Neurologic Reports other ( diabetic neuropathy, restless leg syndrome, migraines) Skin Reports WNL ADL's Reports WNL Exam Physical Exam Review of Lab Studies n/a Hygiene good General Behavior/Attitude Toward Examiner pleasant and cooperative Pain Yes Pain Location tailbone Pain Characteristics acute and aching Psychiatric Exam Level of Consciousness alert Orientation person, place, time and situation Speech normal rate/tone/volume/prosody and coherent Language able to comprehend questions Mood depressed Affect full range, appropriate and congruent Thought Processes/Form logical, linear and goal directed Thought Content depressive symptoms Delusions none Homicidal/Assaultive Ideation none Suicidal Ideation none Hallucinations none Attention/Concentration focused Attention/Concentration Testing Methods observation/interview STM Testing Methods clinical interview (assessment/observation) Intermediate Memory Impairment none LTM Testing Methods recall of biographical information Intellectual Functioning roughly average Intellectual Functioning Assessed By fund of knowledge Insight fair Insight Assessed By ability to recognize & acknowledge mental illness, ability to understand the implications of mental illness, understanding of treatment options and ability to comply with treatment Judgement fair Judgement Assessed By exploring recent decision-making MMSE n/a Patient Assets patient is willing to accept treatment Patient Liabilities patient has multiple medical issues and prolonged grief Assessment and Plan Clinical Impression/Diag Clinical Impression/Diagnosis F 33.2, F 41.9, persistent grief. Continue IOP, monitor meds Progress Overview Reason for Continued Services in an Intensive Outpatient Program continued impaired mood and.or depression, patient would decompenste at a lower level of care, not at baseline level of functioning and high risk for relapse Treatment To Be Provided medication management and group/individual/rec therapy Discharge Disposition/Level of Care PCP Anticipated Discharge 8-12 weeks Certification Statement Certification Statement I believe this patient requires the services of the Intensive Outpatient Program and that t
[2023-12-04 10:05] VITALS: BP 135/70; PULSE 80; RESP 20; TEMP 36.7; O2SAT 99
[2023-12-05 10:23] VITALS: BP 137/86; PULSE 79; RESP 20; TEMP 37.1; O2SAT 97
--- NOTE | 2023-12-05 10:40 | PC.NURSE ---
No nursing group due to MD visit.
[2023-12-09 10:17] VITALS: BP 134/77; PULSE 87; RESP 20; TEMP 37.1; O2SAT 98
[2023-12-11 10:08] VITALS: BP 139/80; PULSE 80; RESP 20; TEMP 36.6; O2SAT 95
[2023-12-16 09:47] VITALS: BP 131/79; PULSE 73; RESP 20; TEMP 36.4; O2SAT 94
--- NOTE | 2023-12-19 09:35 | PC.NURSE ---
No nursing group due to MD visit.
[2023-12-19 10:10] VITALS: BP 153/83; PULSE 77; RESP 20; TEMP 37.2; O2SAT 92
--- NOTE | 2023-12-19 12:28 | WPDSLSPROGRE ---
Progress HPI Progress HPI Visit Attended By patient and staff History Obtained From patient Chief Complaint 3 week follow-up for depression and anxiety HPI this is a routine follow-up. Patient enjoys the program participates well. Her main complaint, again, is grief, missing her terribly even after 6 years. She does feel the program helps. Her son has a new job, and she is happy about this. Patient still gets about 6 hours sleep at night, with early and middle insomnia, low energy, adequate appetite. She continues on BuSpar 10 mg t.i.d., Cymbalta 120 mg q.day, Abilify 5 mg q.a.m., Remeron 50 mg q.h.s.. No recent falls. Average Number of Hours of Sleep 6 Sleep Quality sleep throughout the night and difficulty falling asleep Change in PMFSH Releveant to Presenting Illness No Review of Systems Review of Systems Constitutional Reports denies change Eyes Reports WNL ENT Reports WNL Respiratory Reports WNL Cardiovascular Reports other ( Hypertension, peripheral vascular disease) Gastrointestinal Reports other ( GERD) Musculoskeletal Reports abnormal gait, Reports assistive device, Reports diminished strength, Reports muscle stiffness and Reports other ( osteoarthritis, degenerative joint disease, spinal stenosis) Neurologic Reports other ( diabetic neuropathy, restless leg syndrome, migraines) Skin Reports WNL ADL's Reports WNL Exam Physical Exam Review of Lab Studies n/a Hygiene good General Behavior/Attitude Toward Examiner pleasant and cooperative Pain No Psychiatric Exam Level of Consciousness alert Orientation person, place, time and situation Speech normal rate/tone/volume/prosody and coherent Language able to comprehend questions Mood depressed Affect full range, appropriate and congruent Thought Processes/Form logical and linear Thought Content depressive symptoms Delusions none Homicidal/Assaultive Ideation none Suicidal Ideation none Hallucinations none Attention/Concentration focused Attention/Concentration Testing Methods observation/interview Short Term Memory Impairment none STM Testing Methods clinical interview (assessment/observation) Spa Experience Coordinator Memory Impairment none LTM Testing Methods recall of biographical information Intellectual Functioning roughly average Intellectual Functioning Assessed By current events Insight fair and improving Insight Assessed By ability to recognize & acknowledge mental illness, ability to understand the implications of mental illness, understanding of treatment options and ability to comply with treatment Judgement fair and improving Judgement Assessed By exploring recent decision-making MMSE n/a Patient Assets patient is willing to accept treatment Patient Liabilities multiple medical issues, persistent grief Assessment and Plan Clinical Impression/Diag Clinical Impression/Diagnosis F 33.2, F 41.9, persistent grief. Continue IOP, monitor meds Progress Overview Reason for Continued Services in an Intensive Outpatient Program continued impaired mood and.or depression, patient would decompenste at a lower level of care, not at baseline level of functioning and high risk for relapse Treatment To Be Provided medication management and group/individual/rec therapy Discharge Disposition/Level of Care outpatient therapy Anticipated Discharge 8-12 weeks Certification Statement Certification Statement I believe this patient requires the services of the Intensive Outpatient Program and that there is reasonable expectation that the patient will make timely and significant practical improvement in the presenting acute symptoms as a result of this Intensive Outpatient Program. I do not believe this patient will benefit from a lesser level of care or could be adequately and appropriat
[2023-12-23 10:12] VITALS: BP 126/65; PULSE 72; RESP 20; TEMP 37.1; O2SAT 94
[2023-12-25 10:17] VITALS: BP 113/74; PULSE 74; RESP 20; TEMP 37.2; O2SAT 92
[2023-12-30 10:01] VITALS: BP 136/76; PULSE 89; RESP 20; TEMP 37.1; O2SAT 91
[2024-01-01 10:20] VITALS: BP 119/67; PULSE 88; RESP 20; TEMP 36.8; O2SAT 98
[2024-01-06 10:13] VITALS: BP 140/67; PULSE 74; RESP 20; TEMP 37.1; O2SAT 96
[2024-01-08 10:03] VITALS: BP 108/76; PULSE 80; RESP 20; TEMP 36.7; O2SAT 93
--- NOTE | 2024-01-09 12:41 | P.DS_ITS ---
Discharge Summary Mental Status see treatment course summary Reason for Admission the patient is a 78-year-old white female with a long history of depression and anxiety, previously seen in [facility] on multiple occasions. The last admission prior to this admission was 07/2017. She was admitted on 11/01 with an exacerbation of anxiety and depression that had lasted 1-2 months after an argument with her son a couple of months prior. She endorsed feelings of anhedonia, anxiety, low motivation, insomnia, low self-esteem, poor concentration, variable appetite with weight fluctuation, hopelessness, and occasional passive wishes with no active intent. She came in on Cymbalta 120 mg q.day and Abilify 5 mg q.a.m.. Treatment Plan Utilization/Treatment Supportive/cognitive therapy utilized. Medications were continued. Provided education on many subjects including safety, nutrition, overall general health, falls, coping skills, grief, behavioral activation, self-care, communication, boundaries, benefits of exercising, organization, etc.. She was started on BuSpar and this was gradually increased to 10 mg t.i.d.. The patient was also started on mirtazapine 15 mg q.day on 07/04/2023. Response to [place]/Treatment Course Summary Patient responded very well to treatment with significant improvement in all depressive and anxiety symptoms. She reports sleeping 5 hours per night and her appetite is good. The patient's relationship with her son has drastically improved and he is living next door to her. She stated, I feel like I can tell him no now and will not feel bad about it . Mental status exam on discharge. Pleasant and cooperative. Appropriately dressed and groomed. Motor activity somewhat impaired secondary to physical limitations. Patient uses a cane. Mood/ affect less anxious/ depressed. Thought content remarkable for diminished depressive and anxiety symptoms. Denies suicidal or homicidal ideations, psychosis, mariely. Thought process logical and goal-directed. Insight and judgment improved. Estimated intellectual functioning average. Memory grossly intact. Aftercare Plan SLS will continue to follow with the patient of regular intervals up to 1 year. Continue current medications. Follow up with PCP p.r.n.. Continue all activities as tolerated. The patient is living home alone and will continue to do so. Discharge Diagnosis F 33.2, F 41.9
== END 2024-01-09 14:26 | disposition home or self-care (01) ==
LOC: CHSSENLIFE 11:00
PROVIDERS: PCP Internal Medicine; Visit Provider Psychiatry & Neurology Psychiatry
DX: F33.2 Major depressive disorder, recurrent severe without psychotic features (principal); F41.9 Anxiety disorder, unspecified
CPT/HCPCS: 90853; 96372; 99213; G0463; J0897

== ENCOUNTER 2024-01-21 10:03 | Outpatient (CLI) | payer MEDICARE, SELFPAY ==
[2024-01-21 10:50] LABS: Basophils Absolute Auto 0.05 K/mm3 (0.00-0.10); Basophils Percent Auto 0.6 % (0.0-1.0); Eosinophils Absolute Auto 0.13 K/mm3 (0.02-0.50); Eosinophils Percent Auto 1.6 % (1.0-6.0); Hematocrit 41.5 % (35.0-42.0); Hemoglobin 13.5 g/dL (11.7-13.8); Immature Granulocyte Absolute 0.02 K/mm3 (0.00-0.00); Immature Granulocyte Percent A 0.3 % (0.0-0.0); Lymphocytes Absolute Auto 1.71 K/mm3 (1.10-4.50); Lymphocytes Percent Auto 21.6 % (18.0-42.0); Mean Corpuscular HGB Conc 32.5 g/dL (32-36); Mean Corpuscular Hemoglobin 29.3 pg (27.0-31.0); Mean Platelet Volume 8.5 fl (9.2-11.8); Monocytes Absolute Auto 0.59 K/mm3 (0.10-0.90); Monocytes Percent Auto 7.4 % (2.0-11.0); Neutrophils Absolute Auto 5.42 K/mm3 (1.70-7.20); Neutrophils Percent Auto 68.5 % (50.0-70.0); Platelet Count Result 371 K/mm3 (150-420); Red Blood Count 4.61 M/mm3 (4.20-5.40); Red Cell Distribution Width 12.1 % (11.6-14.4); White Blood Count 7.9 K/mm3 (4.8-10.8)
[2024-01-21 10:58] LABS: Appearance Urine Clear (Clear); Bilirubin Urine Negative (Negative); Blood Urine Negative (Negative); Color Urine Light Yellow (Yellow); Glucose Urine UA Negative (Negative); Ketones Urine Negative (Negative); Leukocyte Esterase Ur 1+ LEU/UL (Negative); Nitrate Urine Negative (Negative); Protein Urine Negative (Negative); Specific Grav Ur <= 1.005 (1.010-1.020); Urobilinogen Urine 0.2 mg/dL (0.2-1.0)
[2024-01-21 11:04] LABS: Add Urine Microscopic? YES; Bacteria Urine Trace /hpf; RBC Urine None seen /hpf (0-2); Squamous Epithelial Cell Urine Rare /hpf (Few); WBC Urine 0-5 /hpf (0-3)
[2024-01-21 11:27] LABS: Hemoglobin A1C 5.8 % (<5.7)
[2024-01-21 11:32] LABS: Alanine Aminotransferase 19 U/L (14-59); Albumin Level 3.6 g/dL (3.4-5.0); Anion Gap 7 mmol/L (8-16); Aspartate Amino Transferase 25 U/L (15-37); Bilirubin,Total 0.4 mg/dL (0.00-1.00); Blood Urea Nitrogen 12 mg/dL (7-18); Carbon Dioxide 33 mmol/L (21-32); Chloride 98 mmol/L (98-108); Cholesterol 156 mg/dL (0-200); Creatine Kinase 79 U/L (26-192); Estimated Glomerular Filt Rate > 60; Glucose 114 mg/dL (70-99); Osmolality Calculated 286 mOsm/kg (285-295); Potassium 4.5 mmol/L (3.5-5.1); Sodium 138 mmol/L (136-145); Total Protein 6.7 g/dL (6.4-8.2); Triglycerides 96 mg/dL (0-150)
[2024-01-21 11:33] LABS: Alkaline Phosphatase 59 U/L (46-116); Free T3 1.81 pg/mL (2.18-3.98); HDL Direct 77 mg/dL (40-60); LDL Cholesterol Calculated 60 mg/dL (<130); Vitamin B12 1625 pg/mL (193-986)
[2024-01-25 14:12] LABS: Vitamin D 25 Hydroxy 32 ng/mL (30-100)
== END 2024-01-21 10:04 | disposition home or self-care (01) ==
PROVIDERS: PCP Internal Medicine; Visit Provider Internal Medicine
DX: N39.0 Urinary tract infection, site not specified (principal); E11.42 Type 2 diabetes mellitus with diabetic polyneuropathy; E53.9 Vitamin B deficiency, unspecified; E03.4 Atrophy of thyroid (acquired); I10 Essential (primary) hypertension; E78.2 Mixed hyperlipidemia; E55.9 Vitamin D deficiency, unspecified
CPT/HCPCS: 36415; 80053; 80061; 81001; 82306; 82550; 82607; 83036; 84443; 84481; 85025; 87077; 87086; 87088; 87186

== ENCOUNTER 2024-02-28 21:53 | Inpatient (IN) | payer MEDICARE, OTHER, SELFPAY ==
[2024-02-28] VITALS (19 sets, daily range): BP systolic 122–154; BP diastolic 49–73; PULSE 91–98; RESP 17–29; TEMP 38.4–39; O2SAT 92–100
--- NOTE | ~2024-02-28 | XR_ITS ---
EXAMINATION: XR chest 1V portable DATE: 02/28/2024 22:43 INDICATION: Fever. TECHNIQUE: A single frontal view of the chest was obtained. COMPARISON: None. FINDINGS: A calcified left lung nodule and calcified left hilar and mediastinal lymph nodes are consi stent with old granulomatous disease. No pleural effusion or pneumothorax. The heart size is normal. IMPRESSION: 1. No acute cardiopulmonary disease. Reviewed, dictated and finalized at location E.
--- NOTE | 2024-02-28 22:22 | ED.GENADULT ---
HPI - General Adult General Chief complaint: Dizziness Stated complaint: Dizzy Time Seen by Provider: 02/28/24 22:11 History of Present Illness HPI narrative: the patient is a 78-year-old woman lives alone at home but her son lives close by. She has a history of gastric bypass, frequent UTIs, hypertension, hyperlipidemia, osteoarthritis, hypothyroidism, diabetes. Tonight, she she has been feeling dizzy, confused per son, with hallucinations that her visual, observing things that are not there with delusions. She is quite cold, and has chills and is febrile in the emergency room. She feels tired weak. Recent emesis but not today or yesterday. Decreased oral intake. He also complains of feeling dizzy and lightheaded. She denies cough or rhinorrhea or nasal congestion or sore throat. No abdominal pain or chest pain. She has chronic urinary urgency but no dysuria or hematuria at present but did have dysuria 2 weeks ago. No URI symptoms. No sick contacts. Related Data Home Medications Medication Instructions Recorded Confirmed aripiprazole 5 mg tablet (Abilify) 5 mg PO DAILY 09/27/23 02/28/24 buspirone 10 mg tablet 10 mg PO DAILY 09/27/23 02/28/24 calcitriol 0.5 mcg capsule 0.5 mcg PO DAILY 09/27/23 02/28/24 (Rocaltrol) cyclobenzaprine 10 mg tablet 10 mg PO DAILY 09/27/23 02/28/24 duloxetine 60 mg capsule,delayed 60 mg PO DAILY 09/27/23 02/28/24 release (Cymbalta) ergocalciferol (vitamin D2) 1,250 1,250 mcg PO DAILY 09/27/23 02/28/24 mcg (50,000 unit) capsule (Vitamin D2) gabapentin 400 mg capsule 400 mg PO DAILY 09/27/23 02/28/24 (Neurontin) hydroxyzine HCl 25 mg tablet 25 mg PO DAILY 09/27/23 02/28/24 levothyroxine 100 mcg tablet 100 mcg PO DAILY 09/27/23 02/28/24 (Synthroid) lisinopril 2.5 mg tablet (Zestril) 2.5 mg PO DAILY 09/27/23 02/28/24 morphine 15 mg tablet,extended 15 mg PO Q6-8H PRN Pain, Mild 09/27/23 02/28/24 release (MS Contin) oxycodone-acetaminophen 10 mg-325 1 tablet PO QID PRN Pain 09/27/23 02/28/24 mg tablet (Percocet) pravastatin 20 mg tablet 20 mg PO DAILY 09/27/23 02/28/24 mecobalamin (vitamin B12) 1,000 1,000 mcg PO DAILY 02/28/24 02/28/24 mcg chewable tablet mirtazapine 15 mg tablet 15 mg PO DAILY 02/28/24 02/28/24 vitamin 1 tablet PO DAILY 02/28/24 02/28/24 no.76-iron,carbonyl 29 mg iron-folic acid 1 mg tablet propranolol 60 mg capsule,24 60 mg PO DAILY 02/28/24 02/28/24 hr,extended release semaglutide 0.25 mg or 0.5 mg (2 0.5 mg subcut WEEKLY 02/28/24 02/28/24 mg/3 mL) subcutaneous pen injector (Ozempic) Allergies Allergy/AdvReac Type Severity Reaction Status Date / Time NSAIDS (Non-Steroidal AdvReac Mild Unknown Verified 06/17/23 11:43 Anti-Inflamma Review of Systems Review of Systems: All systems reviewed & are unremarkable except as noted in HPI and below Constitutional: Constitutional: Reports chills, Denies excessive sweating, Reports fatigue, Reports fever(s), Denies headache(s) and Reports weakness ( Generalized) Eyes: Eyes: Denies change in vision and Denies photophobia ENT: Denies dysphagia, Reports dizziness, Denies headache(s), Denies lip swelling, Denies nasal congestion, Denies sore throat and Denies tongue swelling Cardiovascular: Cardiovascular: Denies chest pain, Denies syncope, Denies rapid heart rate and Denies dyspnea Respiratory: Respiratory: Denies cough, Denies dyspnea and Denies wheezing Gastrointestinal: Gastrointestinal: Denies abdominal pain, Denies constipation, Denies dysphagia, Denies diarrhea, Denies nausea and Denies vomiting Genitourinary: Genitourinary: Denies hematuria, Denies urinary frequency, Denies dysuria and Reports urinary urgency ( chronic) Musculoskeletal: Musculoskeletal: Denies back pain, Denies myalgias, Denies arthralgias, Denies joint swelling and Denies numbness Integumentary/Breasts: Skin/Breast: Denies pruritus, Reports erythema ( at left lower leg) and Denies rash Neurologic: Rep
--- NOTE | 2024-02-28 22:35 | PC.NURSE ---
Francisca, [facility], to bedside to assist this RN with I/O cath for urine specimen. Pt tolerated well. Purewick device placed at -40 mmHg. Tolerates well. Skin intact.
[2024-02-28] MEDS: ACETAMINOPHEN 500 MG TABLET 1000 MG PO (22:47)
[2024-02-28] MEDS: SODIUM CHLORIDE 0.9% IV 1,000 ML 999 ML IV CONT (22:48)
[2024-02-28] MEDS: PIPERACILLN/TAZ 3.375GM/NS50ML 3.375 GM/50 ML BAG IVPB (22:54)
--- NOTE | 2024-02-28 22:55 | PC.NURSE ---
Pt also has noted Lt lower leg and ankle redness, warmth and swelling. Area of skin is tight and taut and hot to touch. She states she stepped on something a month ago and has had some soreness and swelling to her Lt ankle and calf. Pt also has a noted ulcer c scabbing to bottom of her Rt heel.
[2024-02-28 22:56] LABS: Basophils Absolute Auto 0.03 K/mm3 (0.00-0.10); Basophils Percent Auto 0.2 % (0.0-1.0); Eosinophils Absolute Auto 0.01 K/mm3 (0.02-0.50); Eosinophils Percent Auto 0.1 % (1.0-6.0); Hematocrit 39.7 % (35.0-42.0); Hemoglobin 13.1 g/dL (11.7-13.8); Immature Granulocyte Absolute 0.07 K/mm3 (0.00-0.00); Immature Granulocyte Percent A 0.5 % (0.0-0.0); Lymphocytes Absolute Auto 0.47 K/mm3 (1.10-4.50); Lymphocytes Percent Auto 3.4 % (18.0-42.0); Mean Corpuscular Hemoglobin 29.9 pg (27.0-31.0); Mean Corpuscular Volume 90.6 fL (78.0-102.0); Mean Platelet Volume 8.5 fl (9.2-11.8); Monocytes Percent Auto 3.7 % (2.0-11.0); Neutrophils Absolute Auto 12.57 K/mm3 (1.70-7.20); Neutrophils Percent Auto 92.1 % (50.0-70.0); Platelet Count Result 292 K/mm3 (150-420); Red Blood Count 4.38 M/mm3 (4.20-5.40); Red Cell Distribution Width 12.4 % (11.6-14.4); White Blood Count 13.7 K/mm3 (4.8-10.8)
[2024-02-28 23:05] LABS: Appearance Urine Clear (Clear); Bilirubin Urine Negative (Negative); Blood Urine Negative (Negative); Color Urine Yellow (Yellow); Glucose Urine UA Negative (Negative); Ketones Urine Negative (Negative); Leukocyte Esterase Ur Trace LEU/UL (Negative); Nitrate Urine Positive (Negative); Protein Urine Negative (Negative); pH Urine 6.5 (5.0-8.0)
[2024-02-28 23:12] LABS: Alanine Aminotransferase 20 U/L (14-59); Albumin Level 3.6 g/dL (3.4-5.0); Alkaline Phosphatase 65 U/L (46-116); Anion Gap 3 mmol/L (4-12); Aspartate Amino Transferase 18 U/L (15-37); Bilirubin,Total 0.5 mg/dL (0.00-1.00); Blood Urea Nitrogen 15 mg/dL (7-18); CRP 3.4 mg/dL (0.0-0.9); Calcium 8.8 mg/dL (8.5-10.1); Carbon Dioxide 36 mmol/L (21-32); Chloride 93 mmol/L (98-108); Estimated CRCL calculation 63 ml/min; Estimated Glomerular Filt Rate > 60; Glucose 140 mg/dL (70-99); Magnesium 1.3 mg/dL (1.8-2.4); Osmolality Calculated 276 mOsm/kg (285-295); Potassium 4.4 mmol/L (3.5-5.1); Sodium 132 mmol/L (136-145); Total Protein 7.7 g/dL (6.4-8.2)
[2024-02-28 23:14] LABS: Add Urine Microscopic? YES; Bacteria Urine 3+ /hpf; RBC Urine 0-2 /hpf (0-2); Squamous Epithelial Cell Urine Occasional /hpf (Few)
[2024-02-28 23:19] LABS: Lactic Acid Reflex 1.1 mmol/L (0.4-2.0)
[2024-02-28 23:28] LABS: Strep Group A RT-PCR NOT DETECTED (Negative)
[2024-02-28 23:35] LABS: SARS-CoV-2 RNA PCR Negative (Negative)
[2024-02-28 23:39] LABS: Influenza A QL RT-PCR Negative (Negative); Influenza B QL RT-PCR Negative (Negative); RSV RNA, RT-PCR Negative (Negative)
[2024-02-28 23:59] LABS: Erythrocyte Sedimentation Rate 28 mm/hr (0-20)
[2024-02-29] VITALS (9 sets, daily range): BP systolic 97–122; BP diastolic 42–58; PULSE 72–95; RESP 14–20; TEMP 36.2–37.8; O2SAT 91–97; BMI 41.1
--- NOTE | 2024-02-29 00:30 | PC.NURSE ---
Pt resting c family at bedside, pt given water to drink, POC discussed for admit, pt agreeable to POC. VSS, call levin at side.
[2024-02-29] MEDS: MAGNESIUM SULF 2 GM/WATER 50ML 2 GM/50 ML BAG IVPB ×2 (00:37→01:34)
--- NOTE | 2024-02-29 01:33 | PC.NURSE ---
This RN contacted ED for report for pt, MARKIE ronquillo/Nicolas to which he stated Traci will return call to 2nd floor once she is available.
--- NOTE | 2024-02-29 01:41 | PC.NURSE ---
Report received by this RN from Traci Bowles RN in ED. Pt to arrive to room 209 shortly.
--- NOTE | 2024-02-29 01:41 | PC.NURSE ---
Pt to go to Rm 209, report given to [employer]
--- NOTE | 2024-02-29 02:23 | ADMGEN ---
This patient, Eleonora Fregoso, was admitted to 2nd Floor Room 209-1. Patient oriented to hospital policies and general routines including ID bracelet, bed and alarms, visiting hours, pain management, procedures, bathroom and other care routines, personal items, smoking policy, room service/diet, and visiting hours. Information on how to activate the Rapid Response Team has been discussed. Patient are encouraged to report perceived risks to care and to ask questions if they do not understand what they are told or what they should do.
[2024-02-29] MEDS: LORATADINE 5 MG TABLET PO (02:36)
[2024-02-29] MEDS: oxyCODONE/ACETAMINOPHEN (*CRX) 10-325 MG TABLET 1 TAB PO ×3 (02:37→18:01)
[2024-02-29] MEDS: SODIUM CHLORIDE 0.9% IV 1,000 ML 100 ML IV CONT (02:56)
[2024-02-29] MEDS: ACETAMINOPHEN 500 MG TABLET 1000 MG PO ×2 (02:56→11:20)
[2024-02-29 05:32] LABS: Basophils Absolute Auto 0.02 K/mm3 (0.00-0.10); Basophils Percent Auto 0.2 % (0.0-1.0); Hematocrit 33.3 % (35.0-42.0); Hemoglobin 11.1 g/dL (11.7-13.8); Immature Granulocyte Absolute 0.03 K/mm3 (0.00-0.00); Immature Granulocyte Percent A 0.3 % (0.0-0.0); Lymphocytes Absolute Auto 0.66 K/mm3 (1.10-4.50); Lymphocytes Percent Auto 6.9 % (18.0-42.0); Mean Corpuscular HGB Conc 33.3 g/dL (32-36); Mean Corpuscular Hemoglobin 30.1 pg (27.0-31.0); Mean Corpuscular Volume 90.2 fL (78.0-102.0); Monocytes Absolute Auto 0.63 K/mm3 (0.10-0.90); Monocytes Percent Auto 6.6 % (2.0-11.0); Neutrophils Absolute Auto 8.24 K/mm3 (1.70-7.20); Platelet Count Result 209 K/mm3 (150-420); Red Blood Count 3.69 M/mm3 (4.20-5.40); Red Cell Distribution Width 12.7 % (11.6-14.4); White Blood Count 9.6 K/mm3 (4.8-10.8)
[2024-02-29 05:49] LABS: Alanine Aminotransferase 16 U/L (14-59); Albumin Level 2.6 g/dL (3.4-5.0); Alkaline Phosphatase 42 U/L (46-116); Anion Gap 5 mmol/L (4-12); Aspartate Amino Transferase 25 U/L (15-37); Bilirubin,Total 0.4 mg/dL (0.00-1.00); Blood Urea Nitrogen 13 mg/dL (7-18); Calcium 7.6 mg/dL (8.5-10.1); Carbon Dioxide 30 mmol/L (21-32); Chloride 97 mmol/L (98-108); Estimated CRCL calculation 70 ml/min; Estimated Glomerular Filt Rate > 60; Glucose 135 mg/dL (70-99); Magnesium 1.9 mg/dL (1.8-2.4); Osmolality Calculated 276 mOsm/kg (285-295); Potassium 3.7 mmol/L (3.5-5.1); Sodium 132 mmol/L (136-145); Total Protein 5.6 g/dL (6.4-8.2)
[2024-02-29] MEDS: PIPERACILLN/TAZ 3.375GM/NS50ML 3.375 GM/50 ML BAG IVPB (05:56)
[2024-02-29] MEDS: LEVOTHYROXINE SODIUM 100 MCG TABLET PO (06:05)
[2024-02-29] MEDS: CALCIUM CITRATE 200 MG TABLET PO (09:19)
[2024-02-29] MEDS: ENOXAPARIN 40 MG/0.4 ML SYRINGE SUB-Q (09:24)
[2024-02-29] MEDS: PROPRANOLOL HCL 60 MG CAPSULE CR PO (09:24)
[2024-02-29] MEDS: CYANOCOBALAMIN 1,000 MCG TABLET 1000 MCG PO (09:25)
[2024-02-29] MEDS: PRAVASTATIN SODIUM 20 MG TABLET PO (09:25)
[2024-02-29] MEDS: GABAPENTIN 400 MG CAPSULE PO ×4 (09:25→21:59)
[2024-02-29] MEDS: ARIPiprazole 5 MG TABLET PO (09:25)
[2024-02-29] MEDS: calcitrioL 0.25 MCG CAPSULE 0.5 MCG PO (09:25)
[2024-02-29] MEDS: DULoxetine HCL 30 MG CAPSULE.DR 60 MG PO ×2 (09:26→21:58)
[2024-02-29] MEDS: MIRTAZAPINE 15 MG TABLET PO (09:26)
[2024-02-29] MEDS: lisinopriL 2.5 MG TABLET PO (09:27)
[2024-02-29] MEDS: busPIRone HCL 5 MG TABLET 10 MG PO ×3 (09:27→17:58)
[2024-02-29] MEDS: CYCLOBENZAPRINE HCL 10 MG TABLET PO ×3 (09:27→17:58)
[2024-02-29] MEDS: hydrOXYzine HCL 25 MG TABLET PO ×3 (09:27→17:58)
--- NOTE | 2024-02-29 09:47 | PM.IMHP ---
H&P: HPI History of Present Illness Date/Time: 02/29/24 09:47 Chief Complaint: Dizziness And cellulitis of the left lower extremity Narrative: This is a 78-year-old female with a significant past medical history of arthritis, hypertension, hypothyroidism, left knee DJD, type 2 diabetes mellitus who presented to the hospital with complaints of dizziness an cellulitis of the left lower extremity. patient provides the following history. She states that she had when outside barefooted about a week ago and thinks that she stepped on a rock however she does not have the greatest sensation in her feet and seen an ulcer on the bottom of her foot. She states that redness, warmth, swelling worsened over the last week prompting her to come into the emergency room for further evaluation. She states she has not taken anything for her cellulitis and has not seen any doctors prior to this visit. Workup in the hospital included a chest x-ray which was negative for any acute cardiopulmonary disease. Initial labs showed a white blood cell count of 13.7, ESR 28, sodium 132, chloride 93, magnesium 1.3, serum osmolarity 276, C reactive protein 3.4. A UA was performed and shown positive nitrates, trace leukocytes, 11-20 urine wbc's, 3+ urine bacteria. Respiratory panel was negative for influenza a and B, RSV, COVID. She was also negative for group a strep. Urine and blood cultures were obtained and are pending. Patient does have history of E coli in the urine in the past. While in the ED patient received 1 L normal saline, started on IV fluids at 100 mls per hour, and 4 g of Mag. patient was originally started on Zosyn however we will switch this today to Rocephin considering her history of E coli in the urine and positive UA this admission. We will also add doxycycline for MRSA coverage for her cellulitis. On examination today patient does have an open wound to her left heel which is shallow, with slough, covered with Mepilex. Her left leg is warm to the touch, with swelling, and erythema going up to mid donnelly/ calf. Patient does not complain of any pain in that left leg. She denies any fever, chills, nausea, vomiting, diarrhea, abdominal pain, chest pain, shortness a breath, dysuria, hematuria, dizziness, lightheadedness. She endorses a headache today which is 5/10 on the pain scale. Review of Systems Review of Systems: All systems reviewed & are unremarkable except as noted in HPI and below Constitutional: Constitutional: Reports as per HPI and Reports no additional constitutional complaints Eyes: Eyes: Reports as per HPI and Reports no additional eye complaints ENT: Reports system reviewed and no additional complaints, except as documented and Reports as per HPI Cardiovascular: Cardiovascular: Reports as per HPI and Reports no additional cardiovascular complaints Respiratory: Respiratory: Reports as per HPI and Reports no additional respiratory complaints Gastrointestinal: Gastrointestinal: Reports as per HPI and Reports no additional gastrointestinal complaints Genitourinary: Genitourinary: Reports no additional female genitourinary complaints and Reports as per HPI Musculoskeletal: Musculoskeletal: Reports no additional musculoskeletal complaints and Reports as per HPI Integumentary/Breasts: Skin/Breast: Reports system reviewed and no additional complaints, except as docu and Reports as per HPI Neurologic: Reports system reviewed and no additional complaints, except as documented and Reports as per HPI Psychiatric: Psychiatric: Reports no additional psychiatric complaints and Reports as per HPI [facility] Past Medical History Medical History Arthritis Hypertension Hypothyroidism Left knee DJD Type 2 diabetes mellitus Surgical History Surgical History H/O gastric bypass History of back surgery History of total right knee replacemen
[2024-02-29] MEDS: THERAPEUTIC MULTIVITAMINS/MINERALS TAB (*BKC) 1 TABLET PO (09:59)
--- NOTE | 2024-02-29 11:17 | PC.NURSE ---
Changed from obs to IP.
[2024-02-29] MEDS: DOXYCYCLINE HYCLATE 100 MG TABLET PO ×2 (11:20→21:59)
[2024-02-29 17:11] LABS: Glucose Point of Care 128 mg/dl (65-105)
[2024-02-29] MEDS: MORPHINE SULFATE (*CRX) 15 MG TABCR PO (22:20)
[2024-02-29 22:41] LABS: Glucose Point of Care 161 mg/dl (65-105)
[2024-03-01] VITALS: BP 115/48; PULSE 70; RESP 19; TEMP 36.4; O2SAT 95
[2024-03-01] MEDS: oxyCODONE/ACETAMINOPHEN (*CRX) 10-325 MG TABLET 1 TAB PO ×3 (03:20→17:47)
[2024-03-01 03:44] VITALS: RESP 18
[2024-03-01 06:03] LABS: Basophils Absolute Auto 0.02 K/mm3 (0.00-0.10); Basophils Percent Auto 0.3 % (0.0-1.0); Eosinophils Absolute Auto 0.09 K/mm3 (0.02-0.50); Eosinophils Percent Auto 1.4 % (1.0-6.0); Hematocrit 33.4 % (35.0-42.0); Hemoglobin 10.8 g/dL (11.7-13.8); Immature Granulocyte Absolute 0.03 K/mm3 (0.00-0.00); Immature Granulocyte Percent A 0.5 % (0.0-0.0); Lymphocytes Percent Auto 16.7 % (18.0-42.0); Mean Corpuscular HGB Conc 32.3 g/dL (32-36); Mean Corpuscular Hemoglobin 29.7 pg (27.0-31.0); Mean Corpuscular Volume 91.8 fL (78.0-102.0); Mean Platelet Volume 8.3 fl (9.2-11.8); Monocytes Absolute Auto 0.63 K/mm3 (0.10-0.90); Monocytes Percent Auto 9.6 % (2.0-11.0); Neutrophils Percent Auto 71.5 % (50.0-70.0); Platelet Count Result 218 K/mm3 (150-420); Red Blood Count 3.64 M/mm3 (4.20-5.40); White Blood Count 6.6 K/mm3 (4.8-10.8)
[2024-03-01 06:21] LABS: Alanine Aminotransferase 21 U/L (14-59); Albumin Level 2.6 g/dL (3.4-5.0); Alkaline Phosphatase 41 U/L (46-116); Anion Gap 3 mmol/L (4-12); Aspartate Amino Transferase 36 U/L (15-37); Bilirubin,Total 0.3 mg/dL (0.00-1.00); Blood Urea Nitrogen 11 mg/dL (7-18); Calcium 7.9 mg/dL (8.5-10.1); Carbon Dioxide 33 mmol/L (21-32); Chloride 100 mmol/L (98-108); Estimated CRCL calculation 76 ml/min; Estimated Glomerular Filt Rate > 60; Glucose 119 mg/dL (70-99); Osmolality Calculated 282 mOsm/kg (285-295); Potassium 3.8 mmol/L (3.5-5.1); Sodium 136 mmol/L (136-145); Total Protein 5.8 g/dL (6.4-8.2)
[2024-03-01] MEDS: ACETAMINOPHEN 500 MG TABLET 1000 MG PO (06:32)
[2024-03-01] MEDS: LEVOTHYROXINE SODIUM 100 MCG TABLET PO (06:32)
[2024-03-01 07:55] LABS: Glucose Point of Care 115 mg/dl (65-105)
[2024-03-01 08:00] VITALS: BP 120/50; PULSE 72; RESP 14; TEMP 36.8; O2SAT 98
[2024-03-01 09:10] VITALS: PULSE 72
[2024-03-01] MEDS: PROPRANOLOL HCL 60 MG CAPSULE CR PO (09:10)
[2024-03-01] MEDS: CALCIUM CITRATE 200 MG TABLET PO (09:18)
[2024-03-01] MEDS: DULoxetine HCL 30 MG CAPSULE.DR 60 MG PO ×2 (09:18→20:43)
[2024-03-01] MEDS: ARIPiprazole 5 MG TABLET PO (09:18)
[2024-03-01] MEDS: lisinopriL 2.5 MG TABLET PO (09:18)
[2024-03-01] MEDS: PRAVASTATIN SODIUM 20 MG TABLET PO (09:18)
[2024-03-01] MEDS: busPIRone HCL 5 MG TABLET 10 MG PO ×3 (09:19→17:44)
[2024-03-01] MEDS: CYCLOBENZAPRINE HCL 10 MG TABLET PO ×3 (09:19→17:44)
[2024-03-01] MEDS: hydrOXYzine HCL 25 MG TABLET PO ×3 (09:19→17:44)
[2024-03-01] MEDS: calcitrioL 0.25 MCG CAPSULE 0.5 MCG PO (09:19)
[2024-03-01] MEDS: MIRTAZAPINE 15 MG TABLET PO (09:19)
[2024-03-01] MEDS: CYANOCOBALAMIN 1,000 MCG TABLET 1000 MCG PO (09:19)
[2024-03-01] MEDS: THERAPEUTIC MULTIVITAMINS/MINERALS TAB (*BKC) 1 TABLET PO (09:19)
[2024-03-01] MEDS: DOXYCYCLINE HYCLATE 100 MG TABLET PO ×2 (09:19→20:43)
[2024-03-01] MEDS: GABAPENTIN 400 MG CAPSULE PO ×4 (09:20→20:43)
--- NOTE | 2024-03-01 11:42 | P.PNIM_ITS ---
Progress Note: A&P Assessment and Plan (1) Sepsis: Code(s): A41.9 - Sepsis, unspecified organism Status: Acute Assessment and Plan: 02/29/2024: * patient initially meeting sepsis criteria with a temp of 102.2?, respiratory rate of 28, heart rate in the 90s, UTI, cellulitis * blood and urine cultures were obtained and are pending * patient originally started on Zosyn in the ED, she was transition to Rocephin * will start doxycycline for MRSA coverage of her cellulitis * patient was given 1 L normal saline in the ED * lactate was 1.1 03/01/24: * white blood cell count 6.6 * blood and urine cultures are still pending * continue Rocephin and doxycycline (2) Urinary tract infection: Code(s): N39.0 - Urinary tract infection, site not specified Status: Acute Assessment and Plan: 02/29/2024: * UA showing positive nitrates, trace leukocytes, 11-20 urine wbc's, 3+ bacteria * urine culture is pending * continue with Rocephin 03/01/24: * continue with current treatment plan * urine culture is still pending * blood cultures are still pending * continue Rocephin (3) Cellulitis of left lower leg: Code(s): L03.116 - Cellulitis of left lower limb Status: Acute Assessment and Plan: 02/29/2024: * erythema, warmth, swelling to left donnelly/calf down to her left foot and ankle. Patient reports that she has had this for about a week which is worsened for the course of the week. * diabetic foot ulcer to left heel, yellow slough present * Continue Rocephin and doxycycline * wound care daily 03/01/24: * continue Rocephin doxycycline (4) Diabetic foot ulcers: Code(s): E11.621 - Type 2 diabetes mellitus with foot ulcer; L97.509 - Non-pressure chronic ulcer of other part of unspecified foot with unspecified severity Status: Acute Assessment and Plan: 02/29/2024: * see above 03/01/24: * no change (5) Hypertension: Code(s): I10 - Essential (primary) hypertension Status: Acute Assessment and Plan: 02/29/2024: * blood pressure 116/58 to 122/57 * continue lisinopril 03/01/24: * continue with current treatment plan (6) Hypothyroidism: Code(s): E03.9 - Hypothyroidism, unspecified Status: Acute Assessment and Plan: 02/29/2024: * continue Synthroid 03/01/24: * continue with current treatment plan (7) Type 2 diabetes mellitus: Code(s): E11.9 - Type 2 diabetes mellitus without complications Status: Acute Assessment and Plan: 02/29/2024: * blood sugars ranging 114-140 * hemoglobin A1c 5.8 on 01/21/2024 * hold Ozempic * continue diabetic diet * Accu-Cheks AC and HS * low-dose sliding scale insulin ordered * hypoglycemic protocol in place 03/01/24: * continue with current treatment plan Time Spent With Patient Time with patient: 25 - 35 minutes Subjective Date/time seen: 03/01/24 11:42 Interval history: 02/29/24: This is a 78-year-old female with a significant past medical history of arthritis, hypertension, hypothyroidism, left knee DJD, type 2 diabetes mellitus who presented to the hospital with complaints of dizziness an cellulitis of the left lower extremity. patient provides the following history.? She states that she? had when outside barefooted about a week ago and thinks that she stepped on a rock however she does not have the greatest? sensation in her feet and seen an ulcer on the bottom of her foot.? She states that mary
--- NOTE | 2024-03-01 11:42 | PM.IMPN ---
Progress Note: A&P Assessment and Plan (1) Sepsis: Code(s): A41.9 - Sepsis, unspecified organism Status: Acute Assessment and Plan: 02/29/2024: patient initially meeting sepsis criteria with a temp of 102.2?, respiratory rate of 28, heart rate in the 90s, UTI, cellulitis blood and urine cultures were obtained and are pending patient originally started on Zosyn in the ED, she was transition to Rocephin will start doxycycline for MRSA coverage of her cellulitis patient was given 1 L normal saline in the ED lactate was 1.1 03/01/24: white blood cell count 6.6 blood and urine cultures are still pending continue Rocephin and doxycycline (2) Urinary tract infection: Code(s): N39.0 - Urinary tract infection, site not specified Status: Acute Assessment and Plan: 02/29/2024: UA showing positive nitrates, trace leukocytes, 11-20 urine wbc's, 3+ bacteria urine culture is pending continue with Rocephin 03/01/24: continue with current treatment plan urine culture is still pending blood cultures are still pending continue Rocephin (3) Cellulitis of left lower leg: Code(s): L03.116 - Cellulitis of left lower limb Status: Acute Assessment and Plan: 02/29/2024: erythema, warmth, swelling to left donnelly/calf down to her left foot and ankle. Patient reports that she has had this for about a week which is worsened for the course of the week. diabetic foot ulcer to left heel, yellow slough present Continue Rocephin and doxycycline wound care daily 03/01/24: continue Rocephin doxycycline (4) Diabetic foot ulcers: Code(s): E11.621 - Type 2 diabetes mellitus with foot ulcer; L97.509 - Non-pressure chronic ulcer of other part of unspecified foot with unspecified severity Status: Acute Assessment and Plan: 02/29/2024: see above 03/01/24: no change (5) Hypertension: Code(s): I10 - Essential (primary) hypertension Status: Acute Assessment and Plan: 02/29/2024: blood pressure 116/58 to 122/57 continue lisinopril 03/01/24: continue with current treatment plan (6) Hypothyroidism: Code(s): E03.9 - Hypothyroidism, unspecified Status: Acute Assessment and Plan: 02/29/2024: continue Synthroid 03/01/24: continue with current treatment plan (7) Type 2 diabetes mellitus: Code(s): E11.9 - Type 2 diabetes mellitus without complications Status: Acute Assessment and Plan: 02/29/2024: blood sugars ranging 114-140 hemoglobin A1c 5.8 on 01/21/2024 hold Ozempic continue diabetic diet Accu-Cheks AC and HS low-dose sliding scale insulin ordered hypoglycemic protocol in place 03/01/24: continue with current treatment plan Time Spent With Patient Time with patient: 25 - 35 minutes Subjective Date/time seen: 03/01/24 11:42 Interval history: 02/29/24: This is a 78-year-old female with a significant past medical history of arthritis, hypertension, hypothyroidism, left knee DJD, type 2 diabetes mellitus who presented to the hospital with complaints of dizziness an cellulitis of the left lower extremity. patient provides the following history.? She states that she? had when outside barefooted about a week ago and thinks that she stepped on a rock however she does not have the greatest? sensation in her feet and seen an ulcer on the bottom of her foot.? She states that redness, warmth, swelling worsened over the last week prompting her to come into the emergency room for further evaluation.? She states she has not taken anything for her cellulitis and has not seen any doctors prior to this visit.? Workup in the hospital included a chest x-ray which was negative for any acute cardiopulmonary disease.? Initial labs showed a white blood cell count of 13.7, ESR 28, sodium 132, chloride 93,? magnesium 1.3, serum osmolarity 276, C reactive protein 3.4.? A UA
[2024-03-01 11:52] LABS: Glucose Point of Care 129 mg/dl (65-105)
[2024-03-01] MEDS: MORPHINE SULFATE (*CRX) 15 MG TABCR PO (13:30)
[2024-03-01 16:35] VITALS: BP 120/55; PULSE 72; RESP 16; TEMP 36.4; O2SAT 95
--- NOTE | 2024-03-01 18:43 | PC.NURSE ---
León Romeo, TELEPHONE SOLICITOR SUPERVISOR/Hospitalist, notified that patient's preliminary urine culture came back showing E Coli.
--- NOTE | 2024-03-01 19:34 | PM.DS ---
DS: Admitting Diagnosis Discharge Date 03/01/24 Admitting Diagnosis sepsis Cellulitis of left lower leg UTI diabetic foot ulcer hypertension hypothyroidism type 2 diabetes mellitus DS: Discharge Diagnosis Discharge Diagnosis (1) Sepsis: Code(s): A41.9 - Sepsis, unspecified organism Status: Acute (2) Urinary tract infection: Code(s): N39.0 - Urinary tract infection, site not specified Status: Acute (3) Cellulitis of left lower leg: Code(s): L03.116 - Cellulitis of left lower limb Status: Acute (4) Diabetic foot ulcers: Code(s): E11.621 - Type 2 diabetes mellitus with foot ulcer; L97.509 - Non-pressure chronic ulcer of other part of unspecified foot with unspecified severity Status: Acute (5) Hypertension: Code(s): I10 - Essential (primary) hypertension Status: Acute (6) Hypothyroidism: Code(s): E03.9 - Hypothyroidism, unspecified Status: Acute (7) Type 2 diabetes mellitus: Code(s): E11.9 - Type 2 diabetes mellitus without complications Status: Acute DS: Summary Hospital Course Reason for hospitalization: sepsis Cellulitis of left lower leg UTI diabetic foot ulcer hypertension hypothyroidism type 2 diabetes mellitus Hospital Course: 02/29/24: This is a 78-year-old female with a significant past medical history of arthritis, hypertension, hypothyroidism, left knee DJD, type 2 diabetes mellitus who presented to the hospital with complaints of dizziness an cellulitis of the left lower extremity. patient provides the following history.? She states that she? had when outside barefooted about a week ago and thinks that she stepped on a rock however she does not have the greatest? sensation in her feet and seen an ulcer on the bottom of her foot.? She states that redness, warmth, swelling worsened over the last week prompting her to come into the emergency room for further evaluation.? She states she has not taken anything for her cellulitis and has not seen any doctors prior to this visit.? Workup in the hospital included a chest x-ray which was negative for any acute cardiopulmonary disease.? Initial labs showed a white blood cell count of 13.7, ESR 28, sodium 132, chloride 93,? magnesium 1.3, serum osmolarity 276, C reactive protein 3.4.? A UA was performed and shown positive nitrates, trace leukocytes, 11-20 urine wbc's, 3+ urine bacteria.? Respiratory panel was negative for influenza a and B, RSV, COVID.? She was also negative for group a strep.? Urine and blood cultures were obtained and are pending.? Patient does have history of E coli in the urine in the past.? While in the ED patient received 1 L normal saline, started on IV fluids at 100 mls per hour, and 4 g of Mag. patient was originally started on Zosyn however we will switch this today to Rocephin considering her history of E coli in the urine and positive? UA this admission.? We will also add doxycycline for MRSA coverage for her cellulitis.? On examination today patient does have an open wound to her left heel which is shallow, with slough, covered with Mepilex.? Her left leg is warm to the touch, with swelling, and erythema going up to mid donnelly/ calf.? Patient does not complain of any pain in that left leg. ? She denies any fever, chills, nausea, vomiting, diarrhea, abdominal pain, chest pain, shortness a breath, dysuria, hematuria, dizziness, lightheadedness.? She endorses a headache today which is 5/10 on the pain scale. 03/01/24: Patient denies any new complaints today labs today reveal hemoglobin of 10.8, serum osmolarity 282, calcium 7.9, alk-phos 41, albumin 2.6.? Blood and urine cultures are still pending.? She will continue with Rocephin and doxycycline IV at this? time. ?Urine culture showing E coli on final read. Patient was started on cephalexin and doxycycline as this will both cover the urinary tract infection and her cellulitis. Blood cultures are showing no growth on prelim
[2024-03-01 20:00] VITALS: RESP 17
--- NOTE | 2024-03-01 21:00 | PC.NURSE ---
Pt taken to sister's car for d/c via wheelchair w/a bag of her belongings and her cup. Pt tolerated transfer from bed to wheelchair very well. Pt a&ox4 and was given her HS medications prior to leaving. Pt was in good spirits about discharging and communicated she will follow up w/her PCP. Pt assisted into car w/standby assist and pt did very well.
--- NOTE | 2024-03-02 09:11 | PC.NURSE ---
Discharge call back attempted, no answer
--- NOTE | 2024-03-02 09:39 | PC.NURSE ---
Discharge call back complete, scripts did not transfer to pharmacy, sister will be in to pick up and delivery driver written scripts for her
--- NOTE | 2024-03-02 12:07 | PHAR ---
confirmed with pharmacist at [facility] that morphine is prescribed 15mg er tab q8hr scheduled. rx is prescribed by associate dean at [facility] in [place].
[2024-03-05 13:06] LABS: Glucose Point of Care 169 mg/dl (65-105)
[2024-03-05 13:06] LABS: Glucose Point of Care 142 mg/dl (65-105)
== END 2024-03-01 21:00 | disposition home or self-care (01) | DRG 872 ==
LOC: CHSED 02-29 01:02 → CHS2ND 02-29 01:39
PROVIDERS: Admitting Provider Internal Medicine; Emergency Provider Emergency Medicine; PCP Internal Medicine; Visit Provider Internal Medicine
DX: A41.9 Sepsis, unspecified organism (principal); L97.429 Non-pressure chronic ulcer of left heel and midfoot with unspecified severity; L97.419 Non-pressure chronic ulcer of right heel and midfoot with unspecified severity; L03.116 Cellulitis of left lower limb; N39.0 Urinary tract infection, site not specified; I10 Essential (primary) hypertension; E11.621 Type 2 diabetes mellitus with foot ulcer; E03.9 Hypothyroidism, unspecified; M17.12 Unilateral primary osteoarthritis, left knee; Z96.651 Presence of right artificial knee joint; Z98.84 Bariatric surgery status
CPT/HCPCS: 36415; 71045; 80053; 81001; 82948; 83605; 83735; 85025; 85652; 86140; 87040; 87077; 87086; 87088; 87186; 87637; 87651; 96361; 96365; 96366; 96367; 99285; A9270; G0378; J0696; J1650; J2543; J3475; J7030

== ENCOUNTER 2024-03-09 15:55 | Outpatient (CLI) | payer MEDICARE, OTHER, SELFPAY ==
--- NOTE | ~2024-03-09 | US_ITS ---
EXAMINATION: US venous doppler [facility] DATE: 03/09/2024 16:25 INDICATION: Lower limb swelling. TECHNIQUE: Grayscale ultrasound images without and with compression and Doppler ultrasound images of the bilateral lower extremity veins were obtained. COMPARISON: Ultrasound 05/07/2018 FINDINGS: The visualized portions of right common femoral vein, profunda (deep) femoral vein, femoral vein, pop liteal vein, peroneal veins, posterior tibial veins, and greater saphenous vein outflow are patent. The visualized portions of left common femoral vein, profunda femoral vein, femoral vein, popliteal v ein, peroneal veins, posterior tibial veins, and greater saphenous vein outflow are patent. IMPRESSION: 1. No deep venous thrombosis. Reviewed, dictated and finalized at location A.
[2024-03-09 17:00] LABS: Basophils Absolute Auto 0.03 K/mm3 (0.00-0.10); Basophils Percent Auto 0.4 % (0.0-1.0); Eosinophils Absolute Auto 0.14 K/mm3 (0.02-0.50); Hematocrit 35.2 % (35.0-42.0); Hemoglobin 11.2 g/dL (11.7-13.8); Immature Granulocyte Absolute 0.07 K/mm3 (0.00-0.00); Lymphocytes Absolute Auto 1.38 K/mm3 (1.10-4.50); Lymphocytes Percent Auto 19.5 % (18.0-42.0); Mean Corpuscular HGB Conc 31.8 g/dL (32-36); Mean Corpuscular Hemoglobin 29.6 pg (27.0-31.0); Mean Corpuscular Volume 92.9 fL (78.0-102.0); Mean Platelet Volume 8.4 fl (9.2-11.8); Monocytes Absolute Auto 0.71 K/mm3 (0.10-0.90); Neutrophils Absolute Auto 4.75 K/mm3 (1.70-7.20); Neutrophils Percent Auto 67.1 % (50.0-70.0); Platelet Count Result 330 K/mm3 (150-420); Red Blood Count 3.79 M/mm3 (4.20-5.40); Red Cell Distribution Width 12.9 % (11.6-14.4); White Blood Count 7.1 K/mm3 (4.8-10.8)
[2024-03-09 17:03] LABS: Appearance Urine Clear (Clear); Bilirubin Urine Negative (Negative); Blood Urine Negative (Negative); Color Urine Light Yellow (Yellow); Glucose Urine UA Negative (Negative); Ketones Urine Negative (Negative); Leukocyte Esterase Ur Negative (Negative); Nitrate Urine Negative (Negative); Protein Urine Negative (Negative); Specific Grav Ur <= 1.005 (1.010-1.020); Urobilinogen Urine 0.2 mg/dL (0.2-1.0)
[2024-03-09 17:08] LABS: Add Urine Microscopic? NO
[2024-03-09 17:16] LABS: Alanine Aminotransferase 16 U/L (14-59); Albumin Level 3.2 g/dL (3.4-5.0); Alkaline Phosphatase 55 U/L (46-116); Anion Gap 4 mmol/L (4-12); Aspartate Amino Transferase 13 U/L (15-37); Bilirubin,Total 0.3 mg/dL (0.00-1.00); Blood Urea Nitrogen 17 mg/dL (7-18); Calcium 9.3 mg/dL (8.5-10.1); Carbon Dioxide 36 mmol/L (21-32); Chloride 96 mmol/L (98-108); Estimated Glomerular Filt Rate > 60; Glucose 156 mg/dL (70-99); NT Pro B Type Natriuretic Pept 104 pg/mL (0-450); Osmolality Calculated 286 mOsm/kg (285-295); Potassium 4.6 mmol/L (3.5-5.1); Sodium 136 mmol/L (136-145); Total Protein 6.6 g/dL (6.4-8.2)
== END 2024-03-09 15:56 | disposition home or self-care (01) ==
PROVIDERS: PCP Internal Medicine; Visit Provider Internal Medicine
DX: N39.0 Urinary tract infection, site not specified (principal); L03.119 Cellulitis of unspecified part of limb; M79.89 Other specified soft tissue disorders; I50.9 Heart failure, unspecified
CPT/HCPCS: 36415; 80053; 81003; 83880; 85025; 87086; 93970

== ENCOUNTER 2024-03-12 10:28 | Outpatient (CLI) | payer MEDICARE, OTHER, SELFPAY ==
--- NOTE | ~2024-03-12 | US_ITS ---
US arterial ankle brachial ind INDICATION: Leg swelling TECHNIQUE: Segmental pressures and plethysmographic and Doppler waveforms of the brachial and lower e xtremity arteries were obtained. COMPARISON: None. FINDINGS: Right and left brachial artery pressures of 116 mm Hg and 104 mm Hg, respectively, are concordant (no rmal difference <= 30 mmHg). The right ankle-brachial index (VIN) is 1.13 (normal >= 0.9-1.0). The right great toe-brachial index (TBI) is 0.6 (normal >= 0.60). The left VIN is 1.04. The left TBI is 0.7. IMPRESSION: 1. Normal bilateral ankle-brachial indices. Reviewed, dictated and finalized at location B.
== END 2024-03-12 10:29 | disposition home or self-care (01) ==
LOC: CHSIMG 10:29
PROVIDERS: PCP Internal Medicine; Visit Provider Internal Medicine
DX: I73.9 Peripheral vascular disease, unspecified (principal); M79.89 Other specified soft tissue disorders; N39.0 Urinary tract infection, site not specified; L03.90 Cellulitis, unspecified
CPT/HCPCS: 93922

== ENCOUNTER 2024-03-28 08:10 | Outpatient (CLI) | payer MEDICARE, OTHER, SELFPAY ==
--- NOTE | ~2024-03-28 | MR_ITS ---
EXAMINATION: MR foot LT wo/w con DATE: 03/28/2024 09:37 INDICATION: Left heel diabetic ulcer. TECHNIQUE: Magnetic resonance imaging (MRI) of the left foot was performed without and with 20 mL Mul tiHance intravenous contrast. COMPARISON: None. FINDINGS: Bone alignment is normal. No fracture. There is no evidence of osteomyelitis. There is mild osteoarthritis of the ankle joint, subtalar joint, and many of the midfoot joints. The anterior and medial ankle tendons are normal. There is mild peroneus longus tendinopathy. There is mild Achilles t endinopathy. There is thickening of the central and lateral bands of the plantar fascia, consistent w ith fasciitis. There is an enthesophyte at the calcaneal attachment. There is widespread moderate to severe fatty atrophy of the musculature. There is widespread increased T2-weighted signal intensity i n the musculature, consistent with subacute on chronic denervation. IMPRESSION: 1. No evidence of osteomyelitis. Reviewed, dictated and finalized at location A.
== END 2024-03-28 08:11 | disposition home or self-care (01) ==
LOC: CHSIMG 08:11
PROVIDERS: PCP Internal Medicine; Visit Provider Internal Medicine
DX: E11.621 Type 2 diabetes mellitus with foot ulcer (principal)
CPT/HCPCS: 73720; A9577

== ENCOUNTER 2024-03-30 12:34 | Outpatient (NON) | payer MEDICARE, SELFPAY ==
[2024-03-30 23:16] LABS: Anion Gap 11 mmol/L (4-12); Blood Urea Nitrogen 21 mg/dL (7-18); Carbon Dioxide 29 mmol/L (21-32); Chloride 89 mmol/L (98-108); Estimated Glomerular Filt Rate > 60; Glucose 147 mg/dL (70-99); Osmolality Calculated 274 mOsm/kg (285-295); Potassium 4.4 mmol/L (3.5-5.1); Sodium 129 mmol/L (136-145)
== END 2024-03-30 12:35 | disposition home or self-care (01) ==
LOC: CHSLAB 12:36
PROVIDERS: PCP Internal Medicine; Visit Provider Internal Medicine
DX: E11.621 Type 2 diabetes mellitus with foot ulcer (principal)
CPT/HCPCS: 36415; 80048

== ENCOUNTER 2024-04-08 12:47 | Outpatient (NON) | payer MEDICARE, SELFPAY ==
[2024-04-08 13:05] LABS: Anion Gap 10 mmol/L (4-12); Blood Urea Nitrogen 15 mg/dL (7-18); Calcium 9.1 mg/dL (8.5-10.1); Carbon Dioxide 32 mmol/L (21-32); Chloride 97 mmol/L (98-108); Estimated Glomerular Filt Rate > 60; Glucose 146 mg/dL (70-99); Osmolality Calculated 291 mOsm/kg (285-295); Potassium 4.8 mmol/L (3.5-5.1); Sodium 139 mmol/L (136-145)
== END 2024-04-08 12:48 | disposition home or self-care (01) ==
LOC: CHSLAB 12:51
PROVIDERS: Visit Provider Internal Medicine
DX: E11.621 Type 2 diabetes mellitus with foot ulcer (principal)
CPT/HCPCS: 36415; 80048

== ENCOUNTER 2024-04-27 08:37 | Outpatient (CLI) | payer MEDICARE, OTHER, SELFPAY ==
[2024-04-27 08:59] LABS: Basophils Absolute Auto 0.05 K/mm3 (0.00-0.10); Basophils Percent Auto 0.9 % (0.0-1.0); Eosinophils Absolute Auto 0.12 K/mm3 (0.02-0.50); Eosinophils Percent Auto 2.1 % (1.0-6.0); Hemoglobin 12.5 g/dL (11.7-13.8); Immature Granulocyte Absolute 0.02 K/mm3 (0.00-0.00); Immature Granulocyte Percent A 0.3 % (0.0-0.0); Lymphocytes Percent Auto 22.3 % (18.0-42.0); Mean Corpuscular HGB Conc 32.9 g/dL (32-36); Mean Corpuscular Hemoglobin 29.9 pg (27.0-31.0); Mean Corpuscular Volume 90.9 fL (78.0-102.0); Mean Platelet Volume 8.7 fl (9.2-11.8); Monocytes Absolute Auto 0.57 K/mm3 (0.10-0.90); Monocytes Percent Auto 9.8 % (2.0-11.0); Neutrophils Absolute Auto 3.77 K/mm3 (1.70-7.20); Neutrophils Percent Auto 64.6 % (50.0-70.0); Platelet Count Result 292 K/mm3 (150-420); Red Blood Count 4.18 M/mm3 (4.20-5.40); Red Cell Distribution Width 12.4 % (11.6-14.4); White Blood Count 5.8 K/mm3 (4.8-10.8)
[2024-04-27 09:07] LABS: Appearance Urine Clear (Clear); Bilirubin Urine Negative (Negative); Blood Urine Negative (Negative); Color Urine Light Yellow (Yellow); Glucose Urine UA Negative (Negative); Ketones Urine Negative (Negative); Leukocyte Esterase Ur 1+ (Negative); Nitrate Urine Negative (Negative); Protein Urine Negative (Negative); Specific Grav Ur <= 1.005 (1.010-1.020); Urobilinogen Urine 0.2 mg/dL (0.2-1.0); pH Urine 6.5 (5.0-8.0)
[2024-04-27 09:08] LABS: Hemoglobin A1C 6.6 % (<5.7)
[2024-04-27 09:13] LABS: Creatinine Urine < 13.00 mg/dL (40-278); Microalbumin Urine Random < 13.0 mg/L
[2024-04-27 09:15] LABS: Add Urine Microscopic? YES; RBC Urine None seen /hpf (0-2)
[2024-04-27 09:16] LABS: Bacteria Urine None seen /hpf; Squamous Epithelial Cell Urine Few /hpf (Few)
[2024-04-27 09:38] LABS: Alanine Aminotransferase 22 U/L (14-59); Albumin Level 3.4 g/dL (3.4-5.0); Alkaline Phosphatase 63 U/L (46-116); Anion Gap 6 mmol/L (4-12); Aspartate Amino Transferase 23 U/L (15-37); Bilirubin,Total 0.5 mg/dL (0.00-1.00); Blood Urea Nitrogen 15 mg/dL (7-18); Calcium 9.2 mg/dL (8.5-10.1); Carbon Dioxide 32 mmol/L (21-32); Chloride 96 mmol/L (98-108); Estimated Glomerular Filt Rate > 60; Glucose 185 mg/dL (70-99); Osmolality Calculated 283 mOsm/kg (285-295); Potassium 4.6 mmol/L (3.5-5.1); Sodium 134 mmol/L (136-145); Total Protein 6.9 g/dL (6.4-8.2)
== END 2024-04-27 08:38 | disposition home or self-care (01) ==
LOC: CHSLAB 08:40
PROVIDERS: PCP Internal Medicine; Visit Provider Internal Medicine
DX: L03.116 Cellulitis of left lower limb (principal); E11.65 Type 2 diabetes mellitus with hyperglycemia
CPT/HCPCS: 36415; 80053; 81001; 82043; 83036; 85025

== ENCOUNTER 2024-05-27 14:39 | Outpatient (CLI) | payer MEDICARE, SELFPAY ==
[2024-05-27 15:40] LABS: Anion Gap 4 mmol/L (4-12); Blood Urea Nitrogen 14 mg/dL (7-18); Calcium 9.5 mg/dL (8.5-10.1); Carbon Dioxide 33 mmol/L (21-32); Chloride 98 mmol/L (98-108); Estimated Glomerular Filt Rate > 60; Glucose 143 mg/dL (70-99); Osmolality Calculated 282 mOsm/kg (285-295); Potassium 4.3 mmol/L (3.5-5.1); Sodium 135 mmol/L (136-145)
[2024-05-27 15:44] LABS: Appearance Urine Clear (Clear); Bilirubin Urine Negative (Negative); Blood Urine Negative (Negative); Color Urine Yellow (Yellow); Glucose Urine UA Negative (Negative); Ketones Urine Negative (Negative); Leukocyte Esterase Ur Negative (Negative); Nitrate Urine Negative (Negative); Protein Urine Negative (Negative); Specific Grav Ur <= 1.005 (1.010-1.020); Urobilinogen Urine 0.2 mg/dL (0.2-1.0); pH Urine 6.5 (5.0-8.0)
[2024-05-27 15:47] LABS: Add Urine Microscopic? NO
== END 2024-05-27 14:40 | disposition home or self-care (01) ==
PROVIDERS: PCP Internal Medicine; Visit Provider Internal Medicine
DX: I10 Essential (primary) hypertension (principal); N39.0 Urinary tract infection, site not specified
CPT/HCPCS: 36415; 80048; 81003; 87086; 87088

== ENCOUNTER 2024-06-10 14:13 | Outpatient (RCR) | payer MEDICARE, OTHER, SELFPAY ==
--- NOTE | 2024-06-10 15:26 | PTOPEVAL1 ---
Assessment and note entered by Xiang Rodriguez Evaluation Information Assessment Status Evaluation ICD-10 Condition Codes (PT) Pain in low back M54.50,Difficulty Walking R26.2, R26.9 Onset 03/11/24 Subjective Information Pt. reports that she has been developing increasing weakness in the bilateral l.e. She states that she has developed sores on both heels around March. She states that she is unaware of how she developed the ulcers on her feet, but states that she is undergoing wound care. She reports doctor request she limit the amount of pressure she puts on the feet. she states that she is currently using a walker in the home, but states that she uses a cane when going into the community with family. She states that she has experienced 3 falls in the past year. She states that she gets up to feed her dog, walk to the bathroom and perform cooking. She reports she believes she accumulates around 1-2 hours daily on her feet. She reports that she no longer drives. She states that she is not doing any formal exercise currently. She reports that her mobility and strength have declined over the past 3-4 months and states she was driving before developing sores on her feet. She reports that her goal is to be able to walk by herself and improve her balance. Reported Pain Level Pain Score 6: Self Report Assessment PT Clinical Summary Pt. is a 78 year old female who enters the clinic due to developed weakness and back pain. Pt. presents with pain, impaired gait, impaired l.e. strength, fall risk and functional decline on this date. Continued skilled PT is indicated in order to improve these areas to allow for improved comfort and improved safety with all IADL's. Plan of Care Interventions Electrical Stimulation,Gait Training,Hot Pack/Cold Pack,Manual Therapy,Neuro Re-education,Patient/ Caregiver Educati,Therapeutic Activities, Therapeutic Exercise PT Services Indicated Yes Treatment Frequency and 3x/week x 10 visits Duration These treatments will address the objective and functional deficits as defined above. The patient will be advanced safely and appropriately in order for the patient to progress towards his/her prior level of function. Additional exercises will be introduced and as well as a comprehensive home exercise program upon discharge, if needed, ?to ensure carryover of functional gains achieved in the clinic. This treatment plan has been reviewed and agreement upon by the patient.
--- NOTE | 2024-06-10 15:27 | OPREHPOC ---
Outpatient Therapy Plan of Care This is a Multidisciplinary Plan of Care that may contain components documented by all disciplines (PT, OT, and ST.) PT Problem 1 PT Problem #1 Knowledge Deficit PT Goal 1 Goal Pt. will be independent with a HEP addressing l.e. strength and mobility. Target Visit 2 PT Problem 2 PT Problem #2 Impaired Balance PT Goal 1 Goal Pt. will improve her tinetti score to 20 indicating improved safety and decreased fall risk . Pt. will complete the TUG test with use of a cane in less than 30 seconds indicating improve balance and gait efficiency. Target Visit 10 PT Problem 3 PT Problem #3 Impaired Gait PT Goal 1 Goal Pt. will be able to complete the 6 minute walk test with use of a ww over level surface over a distance of 400' or greater without rest Pt. will demonstrate ability to complete sit to stand without use of handhold upon initial standing. Target Visit 10 PT Problem 4 PT Problem #4 Impaired Strength PT Goal 1 Goal Pt. will increase gross l.e. strength to 4/5 to improve standing endurance and stability with standing activities. Target Visit 10
--- NOTE | 2024-07-01 13:08 | PCPTNOTE ---
Pt cancelled session today. Reports she was exposed to someone with Covid and is not feeling well. Will call back to reschedule when she feels better.
--- NOTE | 2024-07-15 16:02 | OPREHPOC ---
Outpatient Therapy Plan of Care This is a Multidisciplinary Plan of Care that may contain components documented by all disciplines (PT, OT, and ST.) PT Problem 1 PT Problem #1 Knowledge Deficit PT Goal 1 Goal / Goal Update Pt. will be independent with a HEP addressing l.e. strength and mobility. Target Visit 2 Progress Met PT Goal 2 Goal / Goal Update Continue to progress HEP as program progresses PT Problem 2 PT Problem #2 Impaired Balance PT Goal 1 Goal / Goal Update Pt. will improve her tinetti score to 20 indicating improved safety and decreased fall risk . -not met Pt. will complete the TUG test with use of a cane in less than 30 seconds indicating improve balance and gait efficiency. -progress towards Target Visit 10 Progress Not Met PT Goal 2 Goal / Goal Update continue Target Visit 20 PT Problem 3 PT Problem #3 Impaired Gait PT Goal 1 Goal / Goal Update Pt. will be able to complete the 6 minute walk test with use of a ww over level surface over a distance of 400' or greater without rest -not met Pt. will demonstrate ability to complete sit to stand without use of handhold upon initial standing. -not met Target Visit 10 Progress Not Met PT Goal 2 Goal / Goal Update continue Target Visit 20 PT Problem 4 PT Problem #4 Impaired Strength PT Goal 1 Goal / Goal Update Pt. will increase gross l.e. strength to 4/5 to improve standing endurance and stability with standing activities. Target Visit 10 Progress Partially Met PT Goal 2 Goal / Goal Update continue Target Visit 20
--- NOTE | 2024-07-15 16:02 | PTOPPROG ---
Assessment and note entered by Amanda Helms, PT Evaluation Information Assessment Status Progress ICD-10 Condition Codes (PT) Pain in low back M54.50,Difficulty Walking R26.2, R26.9 Onset 03/11/24 Subjective Information Eleonora Fregoso reports she feels PT is helping gain strength in her legs but she still has a long way to go. She notes she can not progress quickly because of the ulcers on her feet limiting how long she can stand and walk. She went to wound management earlier today and was told the left foot ulcer is not healed and the right is almost healed. She is using a walker in her home and cane when she goes outside. She has not had any falls since beginning PT but reports she is afraid of falling. She would like to continue skilled PT to further improve her strength and balance. Assessment PT Clinical Summary Eleonora Fregoso has completed 10 skilled PT visits for low back pain and abnormalities of gait . She is reporting some improved strength in her legs but she still feels weak and is afraid of falling. She has been limited with the amount of time she can stand and walk due to ulcers on her left and right heel. She is seeing wound management every 3 weeks and was told her right heel ulcer is almost healed and the left heel ulcer is not healed. She objectively demonstrates improved time on TUG score. She continues to demonstrate a high fall risk per the Tinetti Balance Scale and demonstrates LE weakness and decreased endurance. She was able to complete 110 feet of ambulation in 1 minute 49 seconds today during the 6 minute walk test and she could not continue the test past that point. She will continue to benefit from skilled PT to further address ongoing limitations and to improve her safety and balance. Plan of Care Interventions Gait Training,Neuro Re-education,Patient/Caregiver Educati,Therapeutic Activities,Therapeutic Exercise PT Services Indicated Yes Treatment Frequency and 2 times a week for 10 visits Duration These treatments will address the objective and functional deficits as defined above. The patient will be advanced safely and appropriately in order for the patient to progress towards his/her prior level of function. Additional exercises will be introduced and as well as a comprehensive home exercise program upon discharge, if needed, ?to ensure carryover of functional gains achieved in the clinic. This treatment plan has been revi
--- NOTE | 2024-07-23 14:09 | PCPTNOTE ---
Cancelled session today due to pink eye.
--- NOTE | 2024-09-02 07:59 | PTOPDC ---
Assessment and note entered by JT File, PT Evaluation Information Assessment Status Discharge ICD-10 Condition Codes (PT) Pain in low back M54.50,Difficulty Walking R26.2, R26.9 Onset 03/11/24 Subjective Information patient reports she is ready to DC therapy. she reports she believes she is better, and ready to continue her exercises on her own at home. she reports she does still have pain in the lower back , L knee, and L foot. however, her balance and endurance are improved. Assessment PT Clinical Summary mrs. parra presents to skilled PT services for her 17th skilled PT visit. she reports being ready to DC skilled PT today. she has not met all of the goals for skilled PT, but has made some progress in her LE strength and balance. she will be DC'd from skilled PT today, and continue with HEP independent at home. Plan of Care PT Services Indicated Yes
== END 2024-08-11 09:28 | disposition home or self-care (01) ==
LOC: CHSPT 14:13
PROVIDERS: Visit Provider Internal Medicine
DX: R26.81 Unsteadiness on feet (principal); L89.629 Pressure ulcer of left heel, unspecified stage; L89.619 Pressure ulcer of right heel, unspecified stage; M54.50 Low back pain, unspecified
CPT/HCPCS: 97110; 97150; 97161; 97530; 97750

== ENCOUNTER 2024-07-15 07:16 | Outpatient (RCR) | payer MEDICARE, OTHER, SELFPAY ==
[2024-04-16 13:00] VITALS: BMI 41.1
== END 2024-07-15 23:59 | disposition home or self-care (01) ==
LOC: ANHWOC 07:16
PROVIDERS: PCP Internal Medicine; Visit Provider Student in an Organized Health Care Education/Training Program
DX: L97.412 Non-pressure chronic ulcer of right heel and midfoot with fat layer exposed (principal); L97.422 Non-pressure chronic ulcer of left heel and midfoot with fat layer exposed
CPT/HCPCS: 99213; 99214; A9270; G0463

== ENCOUNTER 2024-08-11 10:01 | Outpatient (CLI) | payer MEDICARE, SELFPAY ==
[2024-08-11 10:25] LABS: Add Urine Microscopic? YES; Appearance Urine Sl Cloudy (Clear); Basophils Absolute Auto 0.03 K/mm3 (0.00-0.10); Basophils Percent Auto 0.4 % (0.0-1.0); Bilirubin Urine Negative (Negative); Blood Urine Negative (Negative); Color Urine Light Yellow (Yellow); Eosinophils Absolute Auto 0.09 K/mm3 (0.02-0.50); Eosinophils Percent Auto 1.1 % (1.0-6.0); Glucose Urine UA Negative (Negative); Hemoglobin 13.1 g/dL (11.7-13.8); Immature Granulocyte Absolute 0.04 K/mm3 (0.00-0.00); Immature Granulocyte Percent A 0.5 % (0.0-0.0); Ketones Urine Negative (Negative); Leukocyte Esterase Ur 3+ LEU/UL (Negative); Lymphocytes Absolute Auto 1.87 K/mm3 (1.10-4.50); Lymphocytes Percent Auto 22.9 % (18.0-42.0); Mean Corpuscular HGB Conc 33.6 g/dL (32-36); Mean Corpuscular Hemoglobin 29.3 pg (27.0-31.0); Mean Corpuscular Volume 87.2 fL (78.0-102.0); Mean Platelet Volume 8.2 fl (9.2-11.8); Monocytes Absolute Auto 0.73 K/mm3 (0.10-0.90); Monocytes Percent Auto 8.9 % (2.0-11.0); Neutrophils Percent Auto 66.2 % (50.0-70.0); Nitrate Urine Positive (Negative); Platelet Count Result 323 K/mm3 (150-420); Protein Urine Negative (Negative); Red Blood Count 4.47 M/mm3 (4.20-5.40); Red Cell Distribution Width 13.2 % (11.6-14.4); Urobilinogen Urine 0.2 mg/dL (0.2-1.0); White Blood Count 8.2 K/mm3 (4.8-10.8); pH Urine 6.5 (5.0-8.0)
[2024-08-11 10:31] LABS: Bacteria Urine 3+ /hpf; RBC Urine None seen /hpf (0-2); Squamous Epithelial Cell Urine Rare /hpf (Few); WBC Urine 21-50 /hpf (0-3)
[2024-08-11 10:33] LABS: Creatinine Urine 26.52 mg/dL (40-278); Microalbumin Urine Random < 13.0 mg/L
[2024-08-11 10:35] LABS: Hemoglobin A1C 6.4 % (<5.7)
[2024-08-11 11:12] LABS: Alanine Aminotransferase 18 U/L (14-59); Albumin Level 3.6 g/dL (3.4-5.0); Alkaline Phosphatase 81 U/L (46-116); Anion Gap 5 mmol/L (4-12); Aspartate Amino Transferase 13 U/L (15-37); Bilirubin,Total 0.4 mg/dL (0.00-1.00); Blood Urea Nitrogen 14 mg/dL (7-18); Calcium 9.4 mg/dL (8.5-10.1); Carbon Dioxide 34 mmol/L (21-32); Chloride 97 mmol/L (98-108); Cholesterol 161 mg/dL (0-200); Creatine Kinase 38 U/L (26-192); Estimated Glomerular Filt Rate > 60; Glucose 134 mg/dL (70-99); HDL Direct 71 mg/dL (40-60); LDL Cholesterol Calculated 71 mg/dL (<130); NT Pro B Type Natriuretic Pept 174 pg/mL (0-450); Osmolality Calculated 284 mOsm/kg (285-295); Potassium 4.5 mmol/L (3.5-5.1); Sodium 136 mmol/L (136-145); Triglycerides 94 mg/dL (0-150)
== END 2024-08-11 10:02 | disposition home or self-care (01) ==
LOC: CHSLAB 10:04
PROVIDERS: PCP Internal Medicine; Visit Provider Internal Medicine
DX: E11.42 Type 2 diabetes mellitus with diabetic polyneuropathy (principal); I10 Essential (primary) hypertension; E78.2 Mixed hyperlipidemia; R82.81 Pyuria; R60.0 Localized edema; R82.90 Unspecified abnormal findings in urine; R06.00 Dyspnea, unspecified
CPT/HCPCS: 36415; 80053; 80061; 81001; 82043; 82550; 83036; 83880; 85025; 87077; 87086; 87088; 87186

== ENCOUNTER 2024-09-02 07:46 | Outpatient (RCR) | payer MEDICARE, OTHER, SELFPAY | END 2024-09-23 12:18 | disposition home or self-care (01) | LOC: ANHWOC 07:46 | PROVIDERS: Visit Provider Student in an Organized Health Care Education/Training Program | DX: L97.412 Non-pressure chronic ulcer of right heel and midfoot with fat layer exposed (principal); L97.422 Non-pressure chronic ulcer of left heel and midfoot with fat layer exposed | CPT/HCPCS: 99212; 99213; G0463 ==

== ENCOUNTER 2024-09-11 16:03 | Inpatient (IN) | payer MEDICARE, OTHER, SELFPAY ==
--- NOTE | ~2024-09-11 | CT_ITS ---
CT scan of the left foot MEDICAL HISTORY: Heel ulcer, osteomyelitis TECHNIQUE: Following intravenous administration of 100 cc of Omnipaque 350 contrast material, axial i maging of the foot was performed. Sagittal and coronal reformatted images were constructed. Dose redu ction technique was used on this scan by utilizing automated exposure control and iterative reconstru ction technique. The dose-length product (DLP) was 416.61 mGy-cm. Findings: No acute fracture or dislocation seen. Osseous alignment appears anatomic. No destructive c hange or periosteal reaction seen to suggest osteomyelitis. Probable generalized osteopenia diffusely in the foot and visualized ankle. There is mild diffuse subcutaneous soft tissue edema about the foot and ankle. No abscess evident. IMPRESSION: No CT evidence for osteomyelitis. Consider MR (if there is no contraindication), for more sensitive e valuation. Nonspecific subcutaneous soft tissue edema. No abscess evident. Reviewed, dictated and finalized at [facility]. ON INSPECTOR IMPRESSION: No CT evidence for osteomyelitis. Consider MR (if there is no contraindication) , for more sensitive evaluation. Nonspecific subcutaneous soft tissue edema. No abscess evident.
--- NOTE | ~2024-09-11 | XR_ITS ---
XR chest 1V portable Ordering provider: Bernard Jimenez MD History: 78 years Female with . sepsis . Comparison: February 28, 2024 FINDINGS: MEDIASTINUM: The cardiac silhouette is not enlarged. LUNGS: No infiltrates, effusions or pneumothorax. Granulomas in the left upper lobe unchanged. OTHER: No free air under the diaphragm. IMPRESSION: No acute cardiopulmonary pathology. Reviewed, dictated and finalized at location A.
--- NOTE | ~2024-09-11 | CT_ITS ---
CT brain wo con Ordering provider: Bernard Jimenez MD History: 78 years Female with . Fall, Headache/ weakness . Comparison: February 18, 2017 Technique: CT of the head without contrast. Radiation reduction technique utilized. The dose-length product was 605.33 mGy-cm. 1 FINDINGS: BRAIN PARENCHYMA AND CSF SPACES: No midline shift, mass effect or hemorrhage. The brain parenchyma a nd CSF spaces are otherwise normal. Empty sella turcica. VISUALIZED PARANASAL SINUSES: Left sphenoid sinus disease. MASTOIDS: Well aerated. BONES: The bones appear intact. SOFT TISSUES: Visualized nasopharynx is normal. Superficial soft tissues are normal. IMPRESSION: No acute intracranial findings. Reviewed, dictated and finalized at location A.
--- NOTE | ~2024-09-11 | US_ITS ---
EXAMINATION: US venous doppler [facility] DATE: 09/14/2024 10:07 INDICATION: Left lower limb swelling. TECHNIQUE: Grayscale ultrasound images without and with compression and Doppler ultrasound images of the left lower extremity veins were obtained. COMPARISON: None. FINDINGS: The visualized portions of left common femoral vein, profunda (deep) femoral vein, femoral vein, popl iteal vein, peroneal veins, posterior tibial veins, and greater saphenous vein outflow are patent. Th ere is a small Funk's cyst. IMPRESSION: 1. No deep venous thrombosis. Reviewed, dictated and finalized at location A. IC SPEAKER
[2024-09-11 16:03] VITALS: BP 114/49; PULSE 103; RESP 18; TEMP 36.9; O2SAT 94
--- NOTE | 2024-09-11 16:13 | ED.WEAKNESS ---
HPI - Weakness General Chief complaint: Fall Stated complaint: weakness/ fall Time Seen by Provider: 09/11/24 16:07 Source: patient and EMS Mode of arrival: EMS Limitations: no limitations History of Present Illness HPI Narrative: Patient is a 78-year-old female with generalized weakness for the past few days. With her generalized weakness, she had a fall and scratched her nose with her glasses. MD Complaint: generalized weakness Onset (ago): day(s) (3) Duration: constant Location: generalized Migration: none Severity: moderate Severity scale (1-10): 4 Quality: other ( No pain) Relieving factors: none Exacerbating factors: none Context: recent illness ( being treated for UTI and still having UTI symptoms) Associated symptoms: denies other symptoms Related Data Home Medications Medication Instructions Recorded Confirmed aripiprazole 5 mg tablet (Abilify) 5 mg PO DAILY 09/27/23 09/11/24 buspirone 10 mg tablet 10 mg PO TID 09/27/23 09/11/24 calcitriol 0.5 mcg capsule 0.5 mcg PO DAILY 09/27/23 09/11/24 (Rocaltrol) cyclobenzaprine 10 mg tablet 10 mg PO TID 09/27/23 09/11/24 duloxetine 60 mg capsule,delayed 60 mg PO BID 09/27/23 09/11/24 release (Cymbalta) gabapentin 400 mg capsule 400 mg PO QID 09/27/23 09/11/24 (Neurontin) hydroxyzine HCl 25 mg tablet 25 mg PO TID 09/27/23 09/11/24 levothyroxine 100 mcg tablet 100 mcg PO DAILY 09/27/23 09/11/24 (Synthroid) lisinopril 2.5 mg tablet (Zestril) 2.5 mg PO DAILY 09/27/23 09/11/24 morphine 15 mg tablet,extended 15 mg PO Q8H 09/27/23 09/11/24 release (MS Contin) pravastatin 20 mg tablet 20 mg PO DAILY 09/27/23 09/11/24 mecobalamin (vitamin B12) 1,000 1,000 mcg PO DAILY 02/28/24 09/11/24 mcg chewable tablet mirtazapine 15 mg tablet 15 mg PO DAILY 02/28/24 09/11/24 vitamin 1 tablet PO DAILY 02/28/24 09/11/24 no.76-iron,carbonyl 29 mg iron-folic acid 1 mg tablet propranolol 60 mg capsule,24 60 mg PO DAILY 02/28/24 09/11/24 hr,extended release semaglutide 0.25 mg or 0.5 mg (2 0.5 mg subcut WEEKLY 02/28/24 09/11/24 mg/3 mL) subcutaneous pen injector (Ozempic) calcium citrate 200 mg PO DAILY 02/29/24 09/11/24 ergocalciferol (vitamin D2) 1,250 1,250 mcg PO WEEKLY 09/11/24 09/11/24 mcg (50,000 unit) capsule (Vitamin D2) Allergies Allergy/AdvReac Type Severity Reaction Status Date / Time NSAIDS (Non-Steroidal AdvReac Mild Unknown Verified 09/11/24 16:10 Anti-Inflamma Review of Systems Review of Systems: All systems reviewed & are unremarkable except as noted in HPI and below Constitutional: Constitutional: Reports no additional constitutional complaints Eyes: Eyes: Reports no additional eye complaints ENT: Reports system reviewed and no additional complaints, except as documented Cardiovascular: Cardiovascular: Reports no additional cardiovascular complaints Respiratory: Respiratory: Reports no additional respiratory complaints Gastrointestinal: Gastrointestinal: Reports no additional gastrointestinal complaints Genitourinary: Genitourinary: Reports no additional female genitourinary complaints Musculoskeletal: Musculoskeletal: Reports no additional musculoskeletal complaints Integumentary/Breasts: Skin/Breast: Reports system reviewed and no additional complaints, except as docu Neurologic: Reports system reviewed and no additional complaints, except as documented Psychiatric: Psychiatric: Reports no additional psychiatric complaints Endocrine: Endocrine: Reports no additional endocrine complaints Hematologic/Lymphatic: Hematologic/Lymphatic: Reports no additional hematologic/lymphatic complaints Allergic/Immunologic: Allergic/Immunologic: Reports no additional allergic/immunologic complaints [facility] Past Medical History Medical History Arthritis Hypertension Hypothyroidism Left knee DJD Type 2 diabetes mellitus Surgical History Surgical History H/O gastric bypass History of back surgery History of total right knee replacement Family History Family History Unknown Depression Diabetes mellitus Arthritis Neuropathy Social History Social History Smoking status: Never smoker Alcohol intake: never Substance use: never Do You Feel Safe in your Home?: Yes Lack of Transportation: No Lack of Food: Never True Current Housing: I Have Housing Concerned About Future Housing: No Difficulty Paying Gas/Electric Bills: No Difficulty Paying for Meds: No Currently Unemployed: No Education: High School Diploma/GED Difficulty w/ Childcare or Family Care: No Gender identity (if verbalized by the patient): Female Spiritual care concerns: No Exam Const: General: healthy appearing Nutritional Appearance: well nourished Orientation/consciousness: patient oriented x3 HENMT: Head: normal to inspection Ears: external ears normal Face/Nose/Sinus: Normal external nose present Eyes: Conjunctivae: conjunctivae normal Pupils: Equal, round and reactive pupils present EOM: EOMs intact bilaterally Neck: Neck: normal visual inspection Chest: Chest palpation & inspection: normal inspection of the chest Resp: Effort & Inspection: normal respiratory effort and not labored Auscultation: clear to auscultation bilaterally and no crackles Cardio: Rate: regular rate Rhythm: regular rhythm Heart sounds: no murmurs GI: Inspection: non-distended GI Palp: Yes Soft to palpation and No Tenderness to palpation present (GI) Auscultation: normal bowel sounds : General: Yes bladder normal to palpation Back/Spine/Pelvis: Back: no CVA tenderness Skin: General skin exam: normal color Rashes: no rashes Wounds: no wounds Neuro: General: patient oriented x3 Cranial nerves: Yes Nystagmus not present Speech: normal speech Other: fast exam was negative GCS is 15 NIH is 0 generalized weakness without focal deficit Extrem: General: normal to inspection Psych: Mental Status: mental status grossly normal Affect: normal affect Attitude: cooperative Course Vital Signs Vital signs: Vital Signs Temperature 36.9 C 09/11/24 16:03 Pulse Rate 103 H 09/11/24 16:03 Respiratory Rate 18 09/11/24 16:03 Blood Pressure 114/49 L 09/11/24 16:03 Pulse Oximetry 94 09/11/24 16:03 Oxygen Delivery Room Air 09/11/24 16:03 Temperature 37.8 C H 09/11/24 17:46 Pulse Rate 106 H 09/11/24 17:46 Respiratory Rate 18 09/11/24 16:20 Blood Pressure 151/60 H 09/11/24 18:16 Pulse Oximetry 91 09/11/24 18:16 Oxygen Delivery Room Air 09/11/24 16:03 MDM - Weakness MDM Narrative Medical decision making narrative: patient is a 78-year-old female with generalized weakness and UTI symptoms. With the workup at this time. It appears she has UTI continued at this time. She has failed outpatient therapy. We will admit her to this facility at this time. Lab Data Attestation: I reviewed the patient's lab results. 09/11/24 16:26 09/11/24 16:59 Labs: Lab Results 09/11/24 09/11/24 09/11/24 Range/Units 16:26 16:59 17:25 WBC 14.9 H (4.8-10.8) K/mm3 RBC 4.15 L (4.20-5.40) M/mm3 Hgb 12.4 (11.7-13.8) g/dL Hct 36.9 (35.0-42.0) % MCV 88.9 (78.0-102.0) fL MCH 29.9 (27.0-31.0) pg MCHC 33.6 (32-36) g/dL RDW 13.1 (11.6-14.4) % Plt Count 268 (150-420) K/mm3 MPV 8.3 L (9.2-11.8) fl Immature Gran % (Auto) 0.5 H (0.0-0.0) % Neut % (Auto) 92.1 H (50.0-70.0) % Lymph % (Auto) 2.4 L (18.0-42.0) % Elliott % (Auto) 4.7 (2.0-11.0) % Eos % (Auto) 0.1 L (1.0-6.0) % Baso % (Auto) 0.2 (0.0-1.0) % Lymph # (Auto) 0.36 L (1.10-4.50) K/mm3 Elliott # (Auto) 0.70 (0.10-0.90) K/mm3 Eos # (Auto) 0.01 L (0.02-0.50) K/mm3 Baso # (Auto) 0.03 (0.00-0.10) K/mm3 Abs Immat Gran (auto) 0.08 H (0.00-0.00) K/mm3 Absolute Neuts (auto) 13.69 H (1.70-7.20) K/mm3 Absolute Nucleated RBC 0.00 (0.00-0.00) K/mm3 Nucleated RBC % 0.0 (0-0.0) % PT 10.3 (9.50-12.1) Seconds INR 0.9 APTT 27.1 (23.9-30.70) Sec Sodium 132 L (136-145) mmol/L Potassium 4.0 (3.5-5.1) mmol/L Chloride 94 L (98-108) mmol/L Carbon Dioxide 29 (21-32) mmol/L Anion Gap 9 (4-12) mmol/L BUN 16 (7-18) mg/dL Creatinine 0.99 (0.55-1.02) mg/dL Estim Creat Clear Calc 56 ml/min Estimated GFR 55 L (59 - ) Glucose 129 H (70-99) mg/dL Calculated Osmolality 277 L (285-295) mOsm/kg Lactic Acid 0.8 (0.4-2.0) mmol/L Calcium 8.8 (8.5-10.1) mg/dL Magnesium 1.2 L (1.8-2.4) mg/dL Total Bilirubin 0.6 (0.00-1.00) mg/dL AST 12 L (15-37) U/L ALT 12 L (14-59) U/L Alkaline Phosphatase 75 (46-116) U/L Troponin I 7.2 (0.00-60.4) ng/L Total Protein 7.0 (6.4-8.2) g/dL Albumin 3.3 L (3.4-5.0) g/dL Urine Color (Yellow) Urine Appearance (Clear) Urine pH (5.0-8.0) Ur Specific [place] (1.010-1.020) Urine Protein (Negative) Urine Glucose (UA) (Negative) Urine Ketones (Negative) Ur Blood (Man) (Negative) Urine Nitrate (Negative) Urine Bilirubin (Negative) Urine Urobilinogen (0.2-1.0) mg/dL Leukocyte Esterase Rfl (Negative) ANNEMARIE/UL Urine RBC (0-2) /hpf Urine WBC (0-3) /hpf Ur Squamous Epith Cells (Few) /hpf Urine Bacteria (None) /hpf Influenza A (RT-PCR) Influenza B (RT-PCR) RSV (RT-PCR) SARS-CoV-2 RNA (RT-PCR) 09/11/24 09/11/24 Range/Units 17:56 18:55 WBC (4.8-10.8) K/mm3 RBC (4.20-5.40) M/mm3 Hgb (11.7-13.8) g/dL Hct (35.0-42.0) % MCV (78.0-102.0) fL MCH (27.0-31.0) pg MCHC (32-36) g/dL RDW (11.6-14.4) % Plt Count (150-420) K/mm3 MPV (9.2-11.8) fl Immature Gran % (Auto) (0.0-0.0) % Neut % (Auto) (50.0-70.0) % Lymph % (Auto) (18.0-42.0) % Elliott % (Auto) (2.0-11.0) % Eos % (Auto) (1.0-6.0) % Baso % (Auto) (0.0-1.0) % Lymph # (Auto) (1.10-4.50) K/mm3 Elliott # (Auto) (0.10-0.90) K/mm3 Eos # (Auto) (0.02-0.50) K/mm3 Baso # (Auto) (0.00-0.10) K/mm3 Abs Immat Gran (auto) (0.00-0.00) K/mm3 Absolute Neuts (auto) (1.70-7.20) K/mm3 Absolute Nucleated RBC (0.00-0.00) K/mm3 Nucleated RBC % (0-0.0) % PT (9.50-12.1) Seconds INR APTT (23.9-30.70) Sec Sodium (136-145) mmol/L Potassium (3.5-5.1) mmol/L Chloride (98-108) mmol/L Carbon Dioxide (21-32) mmol/L Anion Gap (4-12) mmol/L BUN (7-18) mg/dL Creatinine (0.55-1.02) mg/dL Estim Creat Clear Calc ml/min Estimated GFR (59 - ) Glucose (70-99) mg/dL Calculated Osmolality (285-295) mOsm/kg Lactic Acid (0.4-2.0) mmol/L Calcium (8.5-10.1) mg/dL Magnesium (1.8-2.4) mg/dL Total Bilirubin (0.00-1.00) mg/dL AST (15-37) U/L ALT (14-59) U/L Alkaline Phosphatase (46-116) U/L Troponin I (0.00-60.4) ng/L Total Protein (6.4-8.2) g/dL Albumin (3.4-5.0) g/dL Urine Color Yellow (Yellow) Urine Appearance Clear (Clear) Urine pH 5.5 (5.0-8.0) Ur Specific [place] 1.010 (1.010-1.020) Urine Protein Negative (Negative) Urine Glucose (UA) Negative (Negative) Urine Ketones Trace H (Negative) Ur Blood (Man) Negative (Negative) Urine Nitrate Positive H (Negative) Urine Bilirubin Negative (Negative) Urine Urobilinogen 0.2 (0.2-1.0) mg/dL Leukocyte Esterase Rfl Trace H (Negative) ANNEMARIE/UL Urine RBC None seen (0-2) /hpf Urine WBC 0-3 (0-3) /hpf Ur Squamous Epith Cells Rare (Few) /hpf Urine Bacteria 2+ H (None) /hpf Influenza A (RT-PCR) Pending Influenza B (RT-PCR) Pending RSV (RT-PCR) Pending SARS-CoV-2 RNA (RT-PCR) Pending Imaging Data Attestation: I personally reviewed and interpreted this imaging study as follows: Radiologist's impression: Chest x-ray is negative for acute process CT scan of the head was negative for acute process ECG Data EKG #1: Attestation: I personally reviewed and interpreted this ECG as follows: ECG completion date: 09/11/24 ECG completion time: 19:37 EKG Interpretation: tachycardia, PACs, non-specific ST changes, normal QRS, normal QT and left axis Discharge Plan Discharge Prescriptions: No Action cyclobenzaprine 10 mg tablet 10 mg PO TID gabapentin [Neurontin] 400 mg capsule 400 mg PO QID levothyroxine [Synthroid] 100 mcg tablet 100 mcg PO DAILY calcitriol [Rocaltrol] 0.5 mcg capsule 0.5 mcg PO DAILY buspirone 10 mg tablet 10 mg PO TID hydroxyzine HCl 25 mg tablet 25 mg PO TID morphine [MS Contin] 15 mg tablet extended release 15 mg PO Q8H pravastatin 20 mg tablet 20 mg PO DAILY ergocalciferol (vitamin D2) [Vitamin D2] 1,250 mcg (50,000 unit) capsule 1,250 mcg PO WEEKLY lisinopril [Zestril] 2.5 mg tablet 2.5 mg PO DAILY aripiprazole [Abilify] 5 mg tablet 5 mg PO DAILY duloxetine [Cymbalta] 60 mg capsule,delayed release(DR/EC) 60 mg PO BID propranolol 60 mg capsule,extended release 24 hr 60 mg PO DAILY mirtazapine 15 mg tablet 15 mg PO DAILY vit,[id number] 29 mg iron- 1 mg Tablet 1 tablet PO DAILY mecobalamin (vitamin B12) 1,000 mcg Tablet,Chewable 1,000 mcg PO DAILY Ozempic 0.25 mg or 0.5 mg (2 mg/3 mL) pen injector 0.5 mg SUBCUT WEEKLY calcium citrate 200 mg (950 mg) Tablet 200 mg PO DAILY doxycycline hyclate 100 mg capsule 100 mg PO DAILY Qty: 16 0RF cephalexin 500 mg capsule 500 mg PO Q12H Qty: 16 0RF Time of Disposition: 19:42
--- NOTE | 2024-09-11 16:14 | ECG_ITS ---
Test Date: 2024-09-11 17:05:25 Measurements Intervals [place] Rate: 104 P: 63 [place]: 170 QRS: -47 QRSD: 123 T: 75 QT: 322 QTc: 425 Interpretive Statements SINUS TACHYCARDIA ATRIAL TRIPLET AND ATRIAL PREMATURE COMPLEX LEFT ANTERIOR FASCICULAR BLOCK BASELINE ARTIFACT- I, II, III, AVR, AVL, AVF, V1-V2 ABNORMAL ECG No previous ECG available for comparison Electronically Signed On 09-11-2024 18:23:51 CDT by Rudy Daniel D.O.
[2024-09-11 16:20] VITALS: RESP 18
[2024-09-11] MEDS: SODIUM CHLORIDE 0.9% IV 1,000 ML 999 ML IV CONT (16:27)
--- NOTE | 2024-09-11 16:33 | PC.NURSE ---
PT RESTING IN ROOM ON COT WITH NO C/O PAIN AT THIS TIME. FLUIDS CONTINUED.
[2024-09-11 16:45] LABS: Basophils Absolute Auto 0.03 K/mm3 (0.00-0.10); Basophils Percent Auto 0.2 % (0.0-1.0); Eosinophils Absolute Auto 0.01 K/mm3 (0.02-0.50); Eosinophils Percent Auto 0.1 % (1.0-6.0); Hematocrit 36.9 % (35.0-42.0); Hemoglobin 12.4 g/dL (11.7-13.8); Immature Granulocyte Absolute 0.08 K/mm3 (0.00-0.00); Immature Granulocyte Percent A 0.5 % (0.0-0.0); Lymphocytes Absolute Auto 0.36 K/mm3 (1.10-4.50); Lymphocytes Percent Auto 2.4 % (18.0-42.0); Mean Corpuscular HGB Conc 33.6 g/dL (32-36); Mean Corpuscular Hemoglobin 29.9 pg (27.0-31.0); Mean Corpuscular Volume 88.9 fL (78.0-102.0); Mean Platelet Volume 8.3 fl (9.2-11.8); Monocytes Percent Auto 4.7 % (2.0-11.0); Neutrophils Absolute Auto 13.69 K/mm3 (1.70-7.20); Neutrophils Percent Auto 92.1 % (50.0-70.0); Platelet Count Result 268 K/mm3 (150-420); Red Blood Count 4.15 M/mm3 (4.20-5.40); Red Cell Distribution Width 13.1 % (11.6-14.4); White Blood Count 14.9 K/mm3 (4.8-10.8)
[2024-09-11 17:12] LABS: INR 0.9; Partial Thromboplastin Time 27.1 Sec (23.9-30.70); Prothrombin Time 10.3 Seconds (9.50-12.1)
[2024-09-11 17:13] LABS: Alanine Aminotransferase 12 U/L (14-59); Albumin Level 3.3 g/dL (3.4-5.0); Alkaline Phosphatase 75 U/L (46-116); Anion Gap 9 mmol/L (4-12); Aspartate Amino Transferase 12 U/L (15-37); Bilirubin,Total 0.6 mg/dL (0.00-1.00); Blood Urea Nitrogen 16 mg/dL (7-18); Calcium 8.8 mg/dL (8.5-10.1); Carbon Dioxide 29 mmol/L (21-32); Chloride 94 mmol/L (98-108); Estimated CRCL calculation 56 ml/min; Estimated Glomerular Filt Rate 55; Glucose 129 mg/dL (70-99); Magnesium 1.2 mg/dL (1.8-2.4); Osmolality Calculated 277 mOsm/kg (285-295); Sodium 132 mmol/L (136-145); Troponin I 7.2 ng/L (0.00-60.4)
--- NOTE | 2024-09-11 17:26 | PC.NURSE ---
PT RETURNS FROM CT TO ROOM. RESTING WELL WITH NO COMPLAINTS. LAB HERE TO DRAW CULTURE SET 2. SAFETY PRECAUTIONS IN PLACE
--- NOTE | 2024-09-11 17:40 | PC.NURSE ---
PT IS LYING ON STRETCHER WITH FAMILY AT BEDSIDE. NAD NOTED. PT IS AWAITING RESULTS AT THIS TIME. WILL CONTINUE TO MONITOR.
[2024-09-11 17:46] VITALS: BP 154/66; PULSE 106; TEMP 37.8; O2SAT 77
[2024-09-11 17:48] LABS: Lactic Acid Reflex 0.8 mmol/L (0.4-2.0)
[2024-09-11 17:59] LABS: Add Urine Microscopic? YES; Appearance Urine Clear (Clear); Bilirubin Urine Negative (Negative); Blood Urine Negative (Negative); Color Urine Yellow (Yellow); Glucose Urine UA Negative (Negative); Ketones Urine Trace (Negative); Leukocyte Esterase Ur Trace LEU/UL (Negative); Nitrate Urine Positive (Negative); Protein Urine Negative (Negative); Urobilinogen Urine 0.2 mg/dL (0.2-1.0); pH Urine 5.5 (5.0-8.0)
[2024-09-11 18:02] LABS: RBC Urine None seen /hpf (0-2); Squamous Epithelial Cell Urine Rare /hpf (Few); WBC Urine 0-3 /hpf (0-3)
[2024-09-11 18:03] LABS: Bacteria Urine 2+ /hpf
--- NOTE | 2024-09-11 18:03 | PC.NURSE ---
STRAIGHT CATH COMPLETED. JR CARE COMPLETED, PT WAS INCONTINENT OF URINE. PT REPORTS URINARY URGENCY AND FREQUENCY OVER THE PAST 10 DAYS OR SO. PT IS HOT TO TOUCH. FAMILY AT BEDSIDE. PT IS AWAITING RESULTS AT THIS TIME. WILL CONTINUE TO MONITOR.
[2024-09-11 18:10] VITALS: BP 132/57; O2SAT 92
--- NOTE | 2024-09-11 18:12 | PC.NURSE ---
[facility] IS AWARE OF VS, NO ORDERS AT THIS TIME.
[2024-09-11 18:16] VITALS: BP 151/60; O2SAT 91
[2024-09-11] MEDS: PIPERACILLN/TAZ 3.375GM/NS50ML 3.375 GM/50 ML BAG IVPB ×2 (18:48→23:45)
--- NOTE | 2024-09-11 18:59 | PC.NURSE ---
PT WAITING TO BE ADMITTED TO RM 204. FAMILY IS AWARE. RESTING WELL IN ROOM ON COT. DENIES NEEDS AT THIS TIME.
--- NOTE | 2024-09-11 19:00 | PC.NURSE ---
Report received, pt resting, continuing to monitor. Pt instructed on awaiting orders and bed assignemnt. Pt has call levin at side.
[2024-09-11 19:33] LABS: SARS-CoV-2 RNA PCR Negative (Negative)
[2024-09-11 19:46] LABS: Influenza A QL RT-PCR Negative (Negative); Influenza B QL RT-PCR Negative (Negative); RSV RNA, RT-PCR Negative (Negative)
--- NOTE | 2024-09-11 20:05 | PC.NURSE ---
Report given to charge master coordinator Kim, pt will go to Rm 204.
[2024-09-11] MEDS: hydrOXYzine HCL 25 MG TABLET PO (20:34)
[2024-09-11] MEDS: SODIUM CHLORIDE 0.9% IV 1,000 ML 100 ML IV CONT (20:35)
[2024-09-11] MEDS: MAGNESIUM SULF 2 GM/WATER 50ML 2 GM/50 ML BAG IVPB (20:36)
[2024-09-11 20:43] VITALS: BP 122/48; PULSE 74; RESP 18; TEMP 37.7; O2SAT 97
[2024-09-11 20:44] VITALS: BMI 38.8
--- NOTE | 2024-09-11 21:00 | ADMGEN ---
This patient, Eleonora Fregoso, was admitted to 2nd Floor Room 204-1. Patient oriented to hospital policies and general routines including ID bracelet, bed and alarms, visiting hours, pain management, procedures, bathroom and other care routines, personal items, smoking policy, room service/diet, and visiting hours. Information on how to activate the Rapid Response Team has been discussed. Patient are encouraged to report perceived risks to care and to ask questions if they do not understand what they are told or what they should do.
[2024-09-11] MEDS: ACETAMINOPHEN 325 MG TABLET 650 MG PO (21:15)
[2024-09-11] MEDS: DULoxetine HCL 30 MG CAPSULE.DR 60 MG PO (21:15)
[2024-09-11] MEDS: MORPHINE SULFATE (*CRX) 15 MG TABCR PO (22:24)
[2024-09-11] MEDS: GABAPENTIN 400 MG CAPSULE PO (22:24)
[2024-09-11] MEDS: busPIRone HCL 10 MG TABLET PO (22:24)
[2024-09-12] VITALS (7 sets, daily range): BP systolic 100–127; BP diastolic 34–55; PULSE 78–95; RESP 12–20; TEMP 36.1–36.8; O2SAT 91–97
[2024-09-12 05:36] LABS: Basophils Absolute Auto 0.03 K/mm3 (0.00-0.10); Basophils Percent Auto 0.2 % (0.0-1.0); Hematocrit 36.7 % (35.0-42.0); Hemoglobin 12.4 g/dL (11.7-13.8); Immature Granulocyte Absolute 0.14 K/mm3 (0.00-0.00); Immature Granulocyte Percent A 0.7 % (0.0-0.0); Lymphocytes Absolute Auto 0.47 K/mm3 (1.10-4.50); Lymphocytes Percent Auto 2.5 % (18.0-42.0); Mean Corpuscular HGB Conc 33.8 g/dL (32-36); Mean Corpuscular Volume 88.6 fL (78.0-102.0); Mean Platelet Volume 8.5 fl (9.2-11.8); Monocytes Absolute Auto 0.77 K/mm3 (0.10-0.90); Monocytes Percent Auto 4.1 % (2.0-11.0); Neutrophils Absolute Auto 17.58 K/mm3 (1.70-7.20); Neutrophils Percent Auto 92.5 % (50.0-70.0); Platelet Count Result 264 K/mm3 (150-420); Red Blood Count 4.14 M/mm3 (4.20-5.40); Red Cell Distribution Width 13.2 % (11.6-14.4)
[2024-09-12 05:51] LABS: Alanine Aminotransferase 14 U/L (14-59); Albumin Level 2.8 g/dL (3.4-5.0); Alkaline Phosphatase 57 U/L (46-116); Anion Gap 9 mmol/L (4-12); Aspartate Amino Transferase 24 U/L (15-37); Bilirubin,Total 0.7 mg/dL (0.00-1.00); Blood Urea Nitrogen 14 mg/dL (7-18); Calcium 8.6 mg/dL (8.5-10.1); Carbon Dioxide 30 mmol/L (21-32); Chloride 96 mmol/L (98-108); Estimated CRCL calculation 56 ml/min; Estimated Glomerular Filt Rate 53; Glucose 181 mg/dL (70-99); Osmolality Calculated 285 mOsm/kg (285-295); Potassium 4.6 mmol/L (3.5-5.1); Sodium 135 mmol/L (136-145); Total Protein 6.8 g/dL (6.4-8.2)
[2024-09-12] MEDS: PIPERACILLN/TAZ 3.375GM/NS50ML 3.375 GM/50 ML BAG IVPB (05:55)
[2024-09-12] MEDS: busPIRone HCL 10 MG TABLET PO ×3 (06:30→21:57)
[2024-09-12] MEDS: LEVOTHYROXINE SODIUM 100 MCG TABLET PO (06:31)
[2024-09-12] MEDS: MORPHINE SULFATE (*CRX) 15 MG TABCR PO ×3 (06:31→21:57)
--- NOTE | 2024-09-12 08:53 | P.HP_ITS ---
H&P: HPI History of Present Illness Date/Time: 09/12/24 08:53 Chief Complaint: fall, left leg pain Narrative: this is a pleasant 78-year-old lady with a past medical history significant for high blood pressure, diabetes, hypothyroidism, hyperlipidemia, depression and anxiety who presented to the hospital on 09/11 after suffering a fall at home. The patient provides the following history. She states yesterday she was outside on her porch when her left leg would not move. The next thing she remembers is waking up on the ground. She has a life Alert button which she pushed and EMS responded bringing her to the emergency room. She suffered a small superficial abrasion to her nose. She reports over the last few days she has been having complaints of feeling cold, chills, decreased appetite, runny nose, and right lower quadrant abdominal pain. She she thinks she might have become dizzy causing her to faint. She denies any complaints of headache, chest pain, chest palpitation, shortness a breath, nausea, vomiting, constipation, or diarrhea. she reports she was recently seen at her primary care provider's office and he told her she had a urinary tract infection but did not prescribe her antibiotics. She says she was told to let them know if she started having symptoms and they would prescribe antibiotic. In the emergency room labs were significant for white blood cell count 14.9, hemoglobin 12.4, platelets 268, normal coags, sodium 132, potassium 4.0, chloride 94, glucose 129, Mag 1.2, lactic 0.8, troponin negative, and CRP elevated at 13.7. Urinalysis showed a yellow clear urine with trace urine ketones, positive nitrates, trace leukocyte esterase, and 2+ bacteria. Head CT showed no acute intracranial findings and chest x-ray showed no acute cardiopulmonary pathology. Blood and urine cultures were drawn and are pending. EKG showed a sinus tachycardia with a rate of 104 with a left anterior fascicular block. The patient received 2 g of Mag sulfate, 5 mg of lisinopril, and was started on Zosyn and admitted to the floor for further workup. Review of Systems Review of Systems: All systems reviewed & are unremarkable except as noted in HPI and below PMFSH Past Medical History Medical History Arthritis Hypertension Hypothyroidism Left knee DJD Type 2 diabetes mellitus Surgical History Surgical History H/O gastric bypass History of back surgery History of total right knee replacement Family History Family History Unknown Depression Diabetes mellitus Arthritis Neuropathy Social History Social History Smoking status: Never smoker Alcohol intake: never Substance use: never Do You Feel Safe in your Home?: No Lack of Transportation: No Lack of Food: Never True Current Housing: I Have Housing Concerned About Future Housing: No Difficulty Paying Gas/Electric Bills: No Difficulty Paying for Meds: No Currently Unemployed: No Education: High School Diploma/GED Difficulty w/ Childcare or Family Care: No Gender identity (if verbalized by the patient): Female Spiritual care concerns: No Meds Home Medications and Allergies Home Medications Medication Instructions Recorded Confirmed Type aripiprazole 5 mg tablet (Abilify) 5 mg PO DAILY 09/27/23 09/11/24 History buspirone 10 mg tablet 10 mg PO TID 09/27/23 09/11/24 History calcitriol 0.5 mcg capsule 0.5 mcg PO DAILY 09/27/23 09/11/24 History (Rocaltrol) cyclobenzaprine 10 mg tablet 10 mg PO TID 09/27/23 09/11/24 History duloxetine 60 mg capsule,delayed 60 mg PO BID 09/27/23 09/11/24 History release (Cymbalta) gabapentin 400 mg capsule 400 mg PO QID 09/27/23 09/11/24 History (Neurontin) hydroxyzine HCl 25 mg tablet 25 mg PO TID 09/27/23 09/11/24 History levothyroxine 100 mcg tablet 100 mcg PO DAILY 09/27/23 09/11/24 History (Synthroid) lisinopril 2.5 mg tablet (Zestril) 2.5 mg PO DAILY 09/27/23 09/11/24 History morphine 15 mg tablet,extended 15 mg PO Q8H 09/27/23 09/11/24 History release (MS Contin) pravastatin 20 mg tablet 20 mg PO DAILY 09/27/23 09/11/24 History mecobalamin (vitamin B12) 1,000 1,000 mcg PO DAILY 02/28/24 09/11/24 History mcg chewable tablet mirtazapine 15 mg tablet 15 mg PO DAILY 02/28/24 09/11/24 History vitamin 1 tablet PO DAILY 02/28/24 09/11/24 History no.76-iron,carbonyl 29 mg iron-folic acid 1 mg tablet propranolol 60 mg capsule,24 60 mg PO DAILY 02/28/24 09/11/24 History hr,extended release semaglutide 0.25 mg or 0.5 mg (2 0.5 mg subcut WEEKLY 02/28/24 09/11/24 History mg/3 mL) subcutaneous pen injector (Ozempic) calcium citrate 200 mg PO DAILY 02/29/24 09/11/24 History ergocalciferol (vitamin D2) 1,250 1,250 mcg PO WEEKLY 09/11/24 09/11/24 History mcg (50,000 unit) capsule (Vitamin D2) Allergies Allergy/AdvReac Type Severity Reaction Status Date / Time NSAIDS (Non-Steroidal AdvReac Mild Unknown Verified 09/11/24 16:10 Anti-Inflamma Vital Signs Vital Signs - 24 hr 09/11/24 16:03 09/11/24 16:20 09/11/24 17:46 Temperature 98.4 F 100.1 F H Pulse Rate 103 H 106 H Respiratory Rate 18 18 Blood Pressure 114/49 L 154/66 H Pulse Oximetry 94 77 L Oxygen Delivery Room Air 09/11/24 18:10 09/11/24 18:16 09/11/24 20:43 Temperature 100 F H Pulse Rate 74 Respiratory Rate 18 Blood Pressure 132/57 L 151/60 H 122/48 L Pulse Oximetry 92 91 97 Oxygen Delivery Room Air 09/12/24 00:00 09/12/24 04:00 09/12/24 00:00 Temperature 97.4 F L Pulse Rate 88 79 86 Respiratory Rate 20 Blood Pressure 109/42 L Pulse Oximetry 93 Oxygen Delivery Room Air 09/12/24 04:00 Temperature 98.3 F Pulse Rate 91 Respiratory Rate 20 Blood Pressure 100/34 L Pulse Oximetry 91 Oxygen Delivery Room Air Exam Narrative: General: appears comfortable, in no acute distress Respiratory: breathing is unlabored with even chest rise/fall, lungs are clear without wheezing, rhonchi, and crackles Cardiovascular: Rate and rhythm regular, normal s1s2, no murmur Abdomen: Soft, round, non-tender, active bowel sounds Extremities: No cyanosis, clubbing. Pulses 2/2. Patient has trace bilateral lower extremity edema, nonpitting, pulses 2/2 Neuro: A&O x 4 Skin: Warm, dry, intact. she is generally pale. left lower extremity with distal erythema, warmth, and tenderness. H&P: Results Labs Labs: Short CBC 09/11/24 09/12/24 Range/Units 16:26 05:09 WBC 14.9 H 19.0 H (4.8-10.8) K/mm3 Hgb 12.4 12.4 (11.7-13.8) g/dL Hct 36.9 36.7 (35.0-42.0) % Plt Count 268 264 (150-420) K/mm3 BMP 09/11/24 09/12/24 16:59 05:09 Sodium 132 L 135 L Potassium 4.0 4.6 Chloride 94 L 96 L Carbon Dioxide 29 30 BUN 16 14 Creatinine 0.99 1.01 Glucose 129 H 181 H Calcium 8.8 8.6 Cardiac Enzymes 09/11/24 Range/Units 16:59 Troponin I 7.2 (0.00-60.4) ng/L Liver Function 09/11/24 09/12/24 Range/Units 16:59 05:09 Total Bilirubin 0.6 0.7 (0.00-1.00) mg/dL AST 12 L 24 (15-37) U/L ALT 12 L 14 (14-59) U/L Alkaline Phosphatase 75 57 (46-116) U/L Albumin 3.3 L 2.8 L (3.4-5.0) g/dL Urine 09/11/24 Range/Units 17:56 Urine Color Yellow (Yellow) Urine Appearance Clear (Clear) Urine pH 5.5 (5.0-8.0) Ur Specific [place] 1.010 (1.010-1.020) Urine Protein Negative (Negative) Urine Glucose (UA) Negative (Negative) Assessment and Plan Assessment and plan (1) Sepsis: Qualifiers: Sepsis acute organ dysfunction status: with acute organ dysfunction Sepsis type: sepsis due to unspecified organism Severe sepsis acute organ dysfunction type: unspecified Severe sepsis shock status: without septic shock Qualified Code(s): A41.9 - Sepsis, unspecified organism; R65.20 - Severe sepsis without septic shock Code(s): A41.9 - Sepsis, unspecified organism Status: Acute Assessment and Plan: leukocytosis 14.9, temperature 100.1?, tachycardia. suspected source of infection urinary tract infection and left lower extremity cellulitis. * Blood cultures, urine culture pending * patient was initially started on Zosyn. Antibiotics changed to vanc and cefepime. white count on admission was 14.9 and increased to 19 despite Zosyn. * Lactic normal, procalcitonin pending, CRP elevated at 13.7 (2) Acute UTI: Code(s): N39.0 - Urinary tract infection, site not specified Status: Acute Assessment and Plan: UA concerning for possible urinary tract infection * urine culture preliminary growing E coli * past sensitivities reviewed. patient is on cefepime (3) Type 2 diabetes mellitus: Code(s): E11.9 - Type 2 diabetes mellitus without complications Status: Acute Assessment and Plan: hemoglobin A1c 6.4%. patient is on Ozempic 0.5 mg weekly started 3 weeks ago * a.c. HS Accu-Cheks * high-dose SSI based off of BMI greater than 30 * hypoglycemia protocol (4) Hypertension: Code(s): I10 - Essential (primary) hypertension Status: Acute Assessment and Plan: initially patient's home medications were ordered ( propranolol and lisinopril). * blood pressures were soft today when 100s over 30s. * Holding blood pressure agents * monitor blood pressure (5) Cellulitis of left lower leg: Code(s): L03.116 - Cellulitis of left lower limb Status: Acute Assessment and Plan: left lower extremity with concerns for erythema, edema, and pain. suspect cellulitis * there is a possibility of DVT given her recent fall however there is no pitting edema and no previous history of clots. * Venous ultrasound has been ordered nonetheless and will be completed on Saturday * patient is on cefepime and vancomycin * erythema has been outlined and will be monitored * no open area that can be swabbed for culture Quality VTE Prophylaxis VTE prophylaxis: pharmacologic ordered Hospitalist MIPS Advance Care Plan I have confirmed that the patient's Advanced Care Plan is present, code status is documented, or surrogate decision maker is listed in patient medical record.: Yes Medication Reconciliation I have utilized all available resources to obtain, update and review the patients current medications (includes all prescriptions, OTC, herbals, cannabis, and nutritional supplements).: Yes
[2024-09-12] MEDS: PROPRANOLOL HCL 20 MG TABLET 60 MG (09:00)
[2024-09-12] MEDS: ENOXAPARIN 40 MG/0.4 ML SYRINGE SUB-Q (09:00)
[2024-09-12] MEDS: GABAPENTIN 400 MG CAPSULE PO ×4 (09:01→21:57)
[2024-09-12] MEDS: ARIPiprazole 5 MG TABLET PO (09:01)
[2024-09-12] MEDS: lisinopriL 5 MG TABLET (09:01)
[2024-09-12] MEDS: MIRTAZAPINE 15 MG TABLET PO (09:01)
[2024-09-12] MEDS: PRAVASTATIN SODIUM 20 MG TABLET PO (09:01)
[2024-09-12] MEDS: DULoxetine HCL 30 MG CAPSULE.DR 60 MG PO ×2 (09:01→16:49)
[2024-09-12] MEDS: hydrOXYzine HCL 25 MG TABLET PO ×3 (09:02→16:49)
[2024-09-12 09:05] LABS: Magnesium 2.1 mg/dL (1.8-2.4)
[2024-09-12 09:15] LABS: CRP 13.7 mg/dL (0.0-0.9)
[2024-09-12] MEDS: CEFEPIME 2 GM/NS 50 ML 2 GM/50 ML BAG IVPB ×2 (11:05→21:56)
[2024-09-12] MEDS: ACETAMINOPHEN 325 MG TABLET 650 MG PO (11:20)
[2024-09-12] MEDS: VANCOMYCIN 1,250 MG/NS 250 ML 1,250 MG/250 ML BAG 166.67 MG IVPB ×2 (12:15→13:18)
[2024-09-12 22:34] LABS: Glucose Point of Care 123 mg/dl (65-105)
[2024-09-12] MEDS: SODIUM CHLORIDE 0.9% IV 1,000 ML 100 ML IV CONT (22:43)
[2024-09-13] VITALS: BP 104/46; PULSE 84; RESP 14; TEMP 36.3; O2SAT 95
[2024-09-13 04:00] VITALS: BP 116/53; PULSE 84; PULSE 90; RESP 18; TEMP 36.4; O2SAT 94
[2024-09-13] MEDS: LEVOTHYROXINE SODIUM 100 MCG TABLET PO (06:13)
[2024-09-13] MEDS: MORPHINE SULFATE (*CRX) 15 MG TABCR PO ×3 (06:13→21:45)
[2024-09-13] MEDS: busPIRone HCL 10 MG TABLET PO ×3 (06:13→21:44)
[2024-09-13 06:29] LABS: Basophils Absolute Auto 0.02 K/mm3 (0.00-0.10); Basophils Percent Auto 0.2 % (0.0-1.0); Eosinophils Absolute Auto 0.08 K/mm3 (0.02-0.50); Eosinophils Percent Auto 0.8 % (1.0-6.0); Hematocrit 33.9 % (35.0-42.0); Hemoglobin 11.3 g/dL (11.7-13.8); Immature Granulocyte Absolute 0.06 K/mm3 (0.00-0.00); Immature Granulocyte Percent A 0.6 % (0.0-0.0); Lymphocytes Percent Auto 12.6 % (18.0-42.0); Mean Corpuscular HGB Conc 33.3 g/dL (32-36); Mean Corpuscular Hemoglobin 29.8 pg (27.0-31.0); Mean Corpuscular Volume 89.4 fL (78.0-102.0); Mean Platelet Volume 8.9 fl (9.2-11.8); Monocytes Absolute Auto 0.62 K/mm3 (0.10-0.90); Neutrophils Absolute Auto 8.21 K/mm3 (1.70-7.20); Neutrophils Percent Auto 79.8 % (50.0-70.0); Platelet Count Result 241 K/mm3 (150-420); Red Blood Count 3.79 M/mm3 (4.20-5.40); Red Cell Distribution Width 13.6 % (11.6-14.4); White Blood Count 10.3 K/mm3 (4.8-10.8)
[2024-09-13 06:54] LABS: Alanine Aminotransferase 18 U/L (14-59); Albumin Level 2.4 g/dL (3.4-5.0); Alkaline Phosphatase 63 U/L (46-116); Anion Gap 6 mmol/L (4-12); Aspartate Amino Transferase 20 U/L (15-37); Bilirubin,Total 0.4 mg/dL (0.00-1.00); Blood Urea Nitrogen 12 mg/dL (7-18); Calcium 8.4 mg/dL (8.5-10.1); Carbon Dioxide 30 mmol/L (21-32); Chloride 97 mmol/L (98-108); Estimated CRCL calculation 75 ml/min; Estimated Glomerular Filt Rate > 60; Glucose 129 mg/dL (70-99); Magnesium 1.8 mg/dL (1.8-2.4); Osmolality Calculated 277 mOsm/kg (285-295); Potassium 3.7 mmol/L (3.5-5.1); Sodium 133 mmol/L (136-145); Total Protein 6.3 g/dL (6.4-8.2)
[2024-09-13 06:59] LABS: CRP 18.2 mg/dL (0.0-0.9)
[2024-09-13 08:00] VITALS: BP 117/45; PULSE 84; PULSE 86; RESP 14; TEMP 36.3; O2SAT 100
[2024-09-13] MEDS: SODIUM CHLORIDE 0.9% IV 1,000 ML 100 ML IV CONT (08:49)
[2024-09-13] MEDS: PRAVASTATIN SODIUM 20 MG TABLET PO (08:50)
[2024-09-13] MEDS: ARIPiprazole 5 MG TABLET PO (08:51)
[2024-09-13] MEDS: GABAPENTIN 400 MG CAPSULE PO ×4 (08:51→21:44)
[2024-09-13] MEDS: DULoxetine HCL 30 MG CAPSULE.DR 60 MG PO ×2 (08:51→18:22)
[2024-09-13] MEDS: MIRTAZAPINE 15 MG TABLET PO (08:51)
[2024-09-13] MEDS: hydrOXYzine HCL 25 MG TABLET PO ×3 (08:51→18:23)
[2024-09-13] MEDS: ENOXAPARIN 40 MG/0.4 ML SYRINGE SUB-Q (08:54)
--- NOTE | 2024-09-13 09:07 | P.PNIM_ITS ---
Progress Note: A&P Assessment and Plan (1) Sepsis: Qualifiers: Sepsis acute organ dysfunction status: with acute organ dysfunction Sepsis type: sepsis due to unspecified organism Severe sepsis acute organ dysfunction type: unspecified Severe sepsis shock status: without septic shock Qualified Code(s): A41.9 - Sepsis, unspecified organism; R65.20 - Severe sepsis without septic shock Code(s): A41.9 - Sepsis, unspecified organism Status: Acute Assessment and Plan: leukocytosis 14.9, temperature 100.1?, tachycardia. suspected source of infection urinary tract infection and left lower extremity cellulitis. * Blood cultures pending, urine culture shows e-coli * patient was initially started on Zosyn. Antibiotics changed to vanc and cefepime. white count on admission was 14.9 and increased to 19 despite Zos yn. WBC 1/3 downtrending to 10.3 * Lactic normal, procalcitonin pending, CRP elevated at 13.7 (2) Acute UTI: Code(s): N39.0 - Urinary tract infection, site not specified Status: Acute Assessment and Plan: UA concerning for possible urinary tract infection * urine culture preliminary growing E coli * past sensitivities reviewed. patient is on cefepime (3) Type 2 diabetes mellitus: Code(s): E11.9 - Type 2 diabetes mellitus without complications Status: Acute Assessment and Plan: hemoglobin A1c 6.4%. patient is on Ozempic 0.5 mg weekly started 3 weeks ago * a.c. HS Accu-Cheks * high-dose SSI based off of BMI greater than 30 * hypoglycemia protocol (4) Hypertension: Code(s): I10 - Essential (primary) hypertension Status: Acute Assessment and Plan: initially patient's home medications were ordered ( propranolol and lisinopril). * blood pressures were soft today when 100s over 30s. * Holding blood pressure agents * monitor blood pressure (5) Cellulitis of left lower leg: Code(s): L03.116 - Cellulitis of left lower limb Status: Acute Assessment and Plan: left lower extremity with concerns for erythema, edema, and pain. suspect cellulitis * there is a possibility of DVT given her recent fall however there is no pitting edema and no previous history of clots. * Venous ultrasound has been ordered nonetheless and will be completed on Saturday * patient is on cefepime and vancomycin * erythema has been outlined and will be monitored. Slightly worsened to the posterior aspect of left calf. * no open area that can be swabbed for culture Subjective Date/time seen: 09/13/24 09:07 Interval history: No acute events overnight. She looks better. She has more color in her face. Her left leg appears improved on the anterior aspect but there is increased erythema and pain to her posterior calf. Review of Systems Review of Systems: All systems reviewed & are unremarkable except as noted in HPI and below Exam Narrative: General: appears comfortable, in no acute distress Respiratory: breathing is unlabored with even chest rise/fall, lungs are clear without wheezing, rhonchi, and crackles Cardiovascular: Rate and rhythm regular, normal s1s2, no murmur Abdomen: Soft, round, non-tender, active bowel sounds Extremities: No cyanosis, clubbing. Pulses 2/2. Patient has trace bilateral lower extremity edema, +1-2 pitting to left leg, pulses 2/2 Neuro: A&O x 4 Skin: Warm, dry, intact. Her overall color has improved. left lower extremity with distal erythema, warmth, and tenderness. Appears improved on the anterior side of her lower extremity. There is some edema distally to her left knee. She has increased erythema, warmth, and pain into the posterior aspect of her left calf. Objective Data Vital Signs Vital Signs: Vital Signs - 24 hr 09/12/24 12:00 09/12/24 12:00 09/12/24 16:35 Temperature 98.2 F Pulse Rate 95 95 82 Respiratory Rate 14 Blood Pressure 115/55 L Pulse Oximetry 96 Oxygen Delivery Room Air 09/12/24 16:35 09/12/24 20:00 09/12/24 20:00 Temperature 96.9 F L 97.6 F Pulse Rate 78 85 82 Respiratory Rate 18 12 Blood Pressure 103/52 L 127/48 L Pulse Oximetry 97 94 Oxygen Delivery Room Air Room Air 09/13/24 00:00 09/13/24 00:00 09/13/24 04:00 Temperature 97.3 F L Pulse Rate 84 84 90 Respiratory Rate 14 Blood Pressure 104/46 L Pulse Oximetry 95 Oxygen Delivery Room Air 09/13/24 04:00 Temperature 97.6 F Pulse Rate 84 Respiratory Rate 18 Blood Pressure 116/53 L Pulse Oximetry 94 Oxygen Delivery Room Air Intake/Output Intake/Output: Intake & Output 09/10/24 09/11/24 09/12/24 09/13/24 23:59 23:59 23:59 22:59 Intake Total 1100 3690 1400 Output Total 400 400 900 Balance 700 3290 500 Meds/Results Medications: Active Medications Generic Name Dose Route Start Last Admin Trade Name Freq PRN Reason Stop Dose Admin Acetaminophen 650 mg 09/11/24 19:44 09/12/24 11:20 Acetaminophen 325 Mg Tablet PO 650 mg Q4H PRN Administration Mild Pain (1-3) or Fever Aripiprazole 5 mg 09/12/24 09:00 09/13/24 08:51 Aripiprazole 5 Mg Tablet PO 5 mg DAILY LATISHA Administration Buspirone HCl 10 mg 09/11/24 22:00 09/13/24 06:13 Buspirone Hcl 10 Mg Tablet PO 10 mg Q8HR LATISHA Administration Dextrose 12.5 gm 09/12/24 18:48 Dextrose 50% 25 Gm/50 Ml Syringe IV PUSH PRN PRN Hypoglycemia Protocol Duloxetine HCl 60 mg 09/11/24 20:00 09/13/24 08:51 Duloxetine Hcl 30 Mg Capsule.Dr PO 60 mg BID LATISHA Administration Enoxaparin Sodium 40 mg 09/12/24 09:00 09/13/24 08:54 Enoxaparin 40 Mg/0.4 Ml Syringe SUB-Q 40 mg DAILY LATSIHA Administration Gabapentin 400 mg 09/11/24 21:00 09/13/24 08:51 Gabapentin 400 Mg Capsule PO 400 mg QID LATISHA Administration Glucagon 1 mg 09/12/24 18:48 Glucagon For Inj 1 Mg Vial IM PRN PRN Hypoglycemia Protocol Glucose 15 gm 09/12/24 18:48 Glucose Oral Gel 15 Gm Of Glucse In 37.5 Gm Tube PO PRN PRN Hypoglycemia Protocol Hydroxyzine HCl 25 mg 09/11/24 20:00 09/13/24 08:51 Hydroxyzine Hcl 25 Mg Tablet PO 25 mg TID LATISHA Administration Sodium Chloride 1,000 mls @ 100 mls/hr 09/11/24 19:45 09/13/24 08:49 Normal Saline Iv IV CONT 100 mls/hr .Q10H LATISHA Administration Cefepime HCl 2 gm in 50 mls @ 100 mls/hr 09/12/24 10:00 09/12/24 22:26 Maxipime 2 Gm/Ns 50 Ml IVPB Infused Q12HR [facility] Infusion Dextrose 1,000 mls @ 100 mls/hr 09/12/24 18:48 Dextrose 5% 1,000 Ml IVPB PRN PRN Hypoglycemia Protocol Vancomycin HCl 1,500 mg in 500 mls @ 250 mls/hr 09/13/24 09:00 Vancomycin 1,500 Mg/Ns 500 Ml IVPB Q18H [facility] Insulin Human Lispro 4 - 8 units 09/13/24 08:00 09/13/24 08:56 Insulin Human Lispro (*Bkc) 1,000 Units/10 Ml Vial SUB-Q Not Given TIDWM [facility] Protocol Levothyroxine Sodium 100 mcg 09/12/24 06:30 09/13/24 06:13 Levothyroxine Sodium 100 Mcg Tablet PO 100 mcg DAILY@0630 [facility] Administration Lisinopril 2.5 mg 09/12/24 09:00 Lisinopril 2.5 Mg Tablet PO DAILY [facility] Mirtazapine 15 mg 09/12/24 09:00 09/13/24 08:51 Mirtazapine 15 Mg Tablet PO 15 mg DAILY [facility] Administration Morphine Sulfate 15 mg 09/11/24 22:00 09/13/24 06:13 Morphine Sulfate (*Crx) 15 Mg Tabcr PO 15 mg Q8H [facility] Administration Ondansetron HCl 4 mg 09/11/24 19:44 Ondansetron Inj 4 Mg/2 Ml Vial IV PUSH Q6H PRN Nausea And Vomiting Pravastatin Sodium 20 mg 09/12/24 09:00 09/13/24 08:50 Pravastatin Sodium 20 Mg Tablet PO 20 mg DAILY [facility] Administration Propranolol HCl 60 mg 09/12/24 09:00 Propranolol Hcl 60 Mg Capsule Cr PO DAILY [facility] Radiology Results: ITS Impressions Head CT 09/11/24 17:31 IMPRESSION: No acute intracranial findings. Chest X-Ray 09/11/24 18:52 IMPRESSION: No acute cardiopulmonary pathology. Labs Labs: Laboratory Results - last 24 hr 09/12/24 09/13/24 22:28 05:20 WBC 10.3 RBC 3.79 L Hgb 11.3 L Hct 33.9 L MCV 89.4 MCH 29.8 MCHC 33.3 RDW 13.6 Plt Count 241 MPV 8.9 L Immature Gran % (Auto) 0.6 H Neut % (Auto) 79.8 H Lymph % (Auto) 12.6 L [place] % (Auto) 6.0 Eos % (Auto) 0.8 L Baso % (Auto) 0.2 Lymph # (Auto) 1.30 [place] # (Auto) 0.62 Eos # (Auto) 0.08 Baso # (Auto) 0.02 Abs Immat Gran (auto) 0.06 H Absolute Neuts (auto) 8.21 H Absolute Nucleated RBC 0.00 Nucleated RBC % 0.0 Sodium 133 L Potassium 3.7 Chloride 97 L Carbon Dioxide 30 Anion Gap 6 BUN 12 Creatinine 0.74 Estim Creat Clear Calc 75 Estimated GFR > 60 Glucose 129 H POC Capillary Glucose 123 H Calculated Osmolality 277 L Calcium 8.4 L Magnesium 1.8 Total Bilirubin 0.4 AST 20 ALT 18 Alkaline Phosphatase 63 C-Reactive Protein 18.2 H Total Protein 6.3 L Albumin 2.4 L Quality VTE Prophylaxis VTE prophylaxis: pharmacologic ordered
[2024-09-13] MEDS: CEFEPIME 2 GM/NS 50 ML 2 GM/50 ML BAG IVPB ×2 (10:00→21:45)
[2024-09-13] MEDS: VANCOMYCIN 1,500 MG/NS 500 ML 1,500 MG/500 ML BAG 250 MG IVPB (11:02)
[2024-09-13 12:00] VITALS: BP 125/55; PULSE 88; RESP 14; TEMP 36.4; O2SAT 100
[2024-09-13 12:12] LABS: Glucose Point of Care 168 mg/dl (65-105)
--- NOTE | 2024-09-13 15:09 | PC.NURSE ---
Pt IV infiltrated at 1200. Vanco stopped at 1200. Multiple attemps at starting peripheral IV no success so far.
[2024-09-13 16:05] VITALS: BP 112/81; PULSE 79; RESP 16; TEMP 36.2; O2SAT 99
[2024-09-13 17:24] LABS: Glucose Point of Care 145 mg/dl (65-105)
--- NOTE | 2024-09-13 18:55 | PC.NURSE ---
Patients IV site very positional machine beeping frequenlty, IV ATB continue to infuse over the past 2 hours, done infusing at 1845. Patient tolerated well. Spoke with Jayme about stretched out infusion time. Next infusion time for vanc moved to tomorrow morning at 0900.
[2024-09-13 20:00] VITALS: RESP 17
[2024-09-13 21:53] LABS: Glucose Point of Care 174 mg/dl (65-105)
[2024-09-14] VITALS: BP 106/68; PULSE 78; RESP 14; TEMP 36.6; O2SAT 96
[2024-09-14 04:00] VITALS: RESP 16
[2024-09-14 05:25] LABS: Basophils Absolute Auto 0.02 K/mm3 (0.00-0.10); Basophils Percent Auto 0.3 % (0.0-1.0); Eosinophils Absolute Auto 0.18 K/mm3 (0.02-0.50); Eosinophils Percent Auto 2.4 % (1.0-6.0); Hematocrit 31.8 % (35.0-42.0); Hemoglobin 10.8 g/dL (11.7-13.8); Immature Granulocyte Absolute 0.03 K/mm3 (0.00-0.00); Immature Granulocyte Percent A 0.4 % (0.0-0.0); Lymphocytes Absolute Auto 1.58 K/mm3 (1.10-4.50); Lymphocytes Percent Auto 20.8 % (18.0-42.0); Mean Corpuscular Hemoglobin 29.8 pg (27.0-31.0); Mean Corpuscular Volume 87.8 fL (78.0-102.0); Mean Platelet Volume 8.6 fl (9.2-11.8); Monocytes Absolute Auto 0.66 K/mm3 (0.10-0.90); Monocytes Percent Auto 8.7 % (2.0-11.0); Neutrophils Absolute Auto 5.11 K/mm3 (1.70-7.20); Neutrophils Percent Auto 67.4 % (50.0-70.0); Platelet Count Result 225 K/mm3 (150-420); Red Blood Count 3.62 M/mm3 (4.20-5.40); Red Cell Distribution Width 13.4 % (11.6-14.4); White Blood Count 7.6 K/mm3 (4.8-10.8)
[2024-09-14 05:37] LABS: Alanine Aminotransferase 14 U/L (14-59); Albumin Level 2.4 g/dL (3.4-5.0); Alkaline Phosphatase 59 U/L (46-116); Anion Gap 7 mmol/L (4-12); Aspartate Amino Transferase 13 U/L (15-37); Bilirubin,Total 0.3 mg/dL (0.00-1.00); Blood Urea Nitrogen 7 mg/dL (7-18); Calcium 8.5 mg/dL (8.5-10.1); Carbon Dioxide 28 mmol/L (21-32); Chloride 102 mmol/L (98-108); Estimated CRCL calculation 93 ml/min; Estimated Glomerular Filt Rate > 60; Glucose 122 mg/dL (70-99); Osmolality Calculated 283 mOsm/kg (285-295); Potassium 3.5 mmol/L (3.5-5.1); Sodium 137 mmol/L (136-145); Total Protein 6.1 g/dL (6.4-8.2)
[2024-09-14] MEDS: LEVOTHYROXINE SODIUM 100 MCG TABLET PO (06:41)
[2024-09-14] MEDS: MORPHINE SULFATE (*CRX) 15 MG TABCR PO ×2 (06:41→13:25)
[2024-09-14] MEDS: busPIRone HCL 10 MG TABLET PO ×2 (06:41→13:25)
[2024-09-14 07:19] LABS: Procalcitonin 3.2 ng/mL
--- NOTE | 2024-09-14 07:56 | PM.IMPN ---
Progress Note: A&P Assessment and Plan (1) Sepsis: Qualifiers: Sepsis acute organ dysfunction status: with acute organ dysfunction Sepsis type: sepsis due to unspecified organism Severe sepsis acute organ dysfunction type: unspecified Severe sepsis shock status: without septic shock Qualified Code(s): A41.9 - Sepsis, unspecified organism; R65.20 - Severe sepsis without septic shock Code(s): A41.9 - Sepsis, unspecified organism Status: Acute Assessment and Plan: leukocytosis 14.9, temperature 100.1?, tachycardia. suspected source of infection urinary tract infection and left lower extremity cellulitis. Blood cultures pending, urine culture shows e-coli patient was initially started on Zosyn. Antibiotics changed to vanc and cefepime. white count on admission was 14.9 and increased to 19 despite Zosyn. WBC 1/3 downtrending to 10.3 Lactic normal, procalcitonin pending, CRP elevated at 13.7 (2) Acute UTI: Code(s): N39.0 - Urinary tract infection, site not specified Status: Acute Assessment and Plan: UA concerning for possible urinary tract infection urine culture preliminary growing E coli past sensitivities reviewed. patient is on cefepime (3) Type 2 diabetes mellitus: Code(s): E11.9 - Type 2 diabetes mellitus without complications Status: Acute Assessment and Plan: hemoglobin A1c 6.4%. patient is on Ozempic 0.5 mg weekly started 3 weeks ago a.c. HS Accu-Cheks high-dose SSI based off of BMI greater than 30 hypoglycemia protocol (4) Hypertension: Code(s): I10 - Essential (primary) hypertension Status: Acute Assessment and Plan: initially patient's home medications were ordered ( propranolol and lisinopril). blood pressures were soft today when 100s over 30s. Holding blood pressure agents monitor blood pressure (5) Cellulitis of left lower leg: Code(s): L03.116 - Cellulitis of left lower limb Status: Acute Assessment and Plan: left lower extremity with concerns for erythema, edema, and pain. suspect cellulitis there is a possibility of DVT given her recent fall however there is no pitting edema and no previous history of clots. Venous ultrasound has been ordered nonetheless and will be completed on Saturday patient is on cefepime and vancomycin erythema has been outlined and will be monitored. Slightly worsened to the posterior aspect of left calf. no open area that can be swabbed for culture (6) Diabetic foot ulcers: Code(s): E11.621 - Type 2 diabetes mellitus with foot ulcer; L97.509 - Non-pressure chronic ulcer of other part of unspecified foot with unspecified severity Status: Acute Assessment and Plan: chronic diabetic foot ulcer to left heel. Heel is boggy with small opening with pink wound bed and surrounding callus. No areas draining but there is surrounding erythema that travels up into her lower leg. CT shows no concerns for osteomyelitis Control blood glucose Elevate foot and attempt to keep from putting pressure on heel with ambulation Wound care recommendations received from wound care at [facility]. Local wound care with silver gel to open wound bed and cover with foam boarder dressing. Change daily. Subjective Date/time seen: 09/14/24 07:56 Review of Systems Review of Systems: All systems reviewed & are unremarkable except as noted in HPI and below Exam Narrative: General: appears comfortable, in no acute distress Respiratory: breathing is unlabored with even chest rise/fall, lungs are clear without wheezing, rhonchi, and crackles Cardiovascular: Rate and rhythm regular, normal s1s2, no murmur Abdomen: Soft, round, non-tender, active bowel sounds Extremities: No cyanosis, clubbing. Pulses 2/2. Patient has trace bilateral lower extremity edema, +1-2 pitting to left leg, pulses 2/2 Neuro: A&O x 4 Skin: Warm, dry, intact. Her overall color has improved. left lower extremity with distal erythema, warmth, and tenderness. Appears improved on the anterior side of her lower extremity. There is some edema distally to her left knee. She has increased erythema, warmth, and pain into the posterior aspect of her left calf. Objective Data Vital Signs Vital Signs: Vital Signs - 24 hr 09/13/24 08:00 09/13/24 08:00 09/13/24 12:00 Temperature 97.4 F L 97.6 F Pulse Rate 84 86 88 Respiratory Rate 14 14 Blood Pressure 117/45 L 125/55 L Pulse Oximetry 100 100 Oxygen Delivery Room Air Room Air 09/13/24 16:05 09/13/24 20:00 09/14/24 00:00 Temperature 97.2 F L 97.8 F Pulse Rate 79 78 Respiratory Rate 16 17 14 Blood Pressure 112/81 106/68 Pulse Oximetry 99 96 Oxygen Delivery Room Air Room Air 09/14/24 04:00 Temperature Pulse Rate Respiratory Rate 16 Blood Pressure Pulse Oximetry Oxygen Delivery Intake/Output Intake/Output: Intake & Output 09/12/24 09/13/24 09/13/24 09/14/24 00:59 00:59 23:59 23:59 Intake Total 820 Output Total 850 Balance -30 Meds/Results Medications: Active Medications Generic Name Dose Route Start Last Admin Trade Name Freq PRN Reason Stop Dose Admin Acetaminophen 650 mg 09/11/24 19:44 09/12/24 11:20 Acetaminophen 325 Mg Tablet PO 650 mg Q4H PRN Administration Mild Pain (1-3) or Fever Aripiprazole 5 mg 09/12/24 09:00 09/13/24 08:51 Aripiprazole 5 Mg Tablet PO 5 mg DAILY LATISHA Administration Buspirone HCl 10 mg 09/11/24 22:00 09/14/24 06:41 Buspirone Hcl 10 Mg Tablet PO 10 mg Q8HR LATISHA Administration Dextrose 12.5 gm 09/12/24 18:48 Dextrose 50% 25 Gm/50 Ml Syringe IV PUSH PRN PRN Hypoglycemia Protocol Duloxetine HCl 60 mg 09/11/24 20:00 09/13/24 18:22 Duloxetine Hcl 30 Mg Capsule.Dr PO 60 mg BID LATISHA Administration Enoxaparin Sodium 40 mg 09/12/24 09:00 09/13/24 08:54 Enoxaparin 40 Mg/0.4 Ml Syringe SUB-Q 40 mg DAILY LATISHA Administration Gabapentin 400 mg 09/11/24 21:00 09/13/24 21:44 Gabapentin 400 Mg Capsule PO 400 mg QID LATISHA Administration Glucagon 1 mg 09/12/24 18:48 Glucagon For Inj 1 Mg Vial IM PRN PRN Hypoglycemia Protocol Glucose 15 gm 09/12/24 18:48 Glucose Oral Gel 15 Gm Of Glucse In 37.5 Gm Tube PO PRN PRN Hypoglycemia Protocol Hydroxyzine HCl 25 mg 09/11/24 20:00 09/13/24 18:23 Hydroxyzine Hcl 25 Mg Tablet PO 25 mg TID LATISHA Administration Cefepime HCl 2 gm in 50 mls @ 100 mls/hr 09/12/24 10:00 09/13/24 22:15 Maxipime 2 Gm/Ns 50 Ml IVPB Infused Q12HR LATISHA Infusion Dextrose 1,000 mls @ 100 mls/hr 09/12/24 18:48 Dextrose 5% 1,000 Ml IVPB PRN PRN Hypoglycemia Protocol Vancomycin HCl 1,500 mg in 500 mls @ 250 mls/hr 09/13/24 09:00 09/13/24 18:45 Vancomycin 1,500 Mg/Ns 500 Ml IVPB Infused Q18H [facility] Infusion Insulin Human Lispro 4 - 8 units 09/13/24 08:00 09/13/24 18:23 Insulin Human Lispro (*Bkc) 1,000 Units/10 Ml Vial SUB-Q Not Given TIDWM [facility] Protocol Levothyroxine Sodium 100 mcg 09/12/24 06:30 09/14/24 06:41 Levothyroxine Sodium 100 Mcg Tablet PO 100 mcg DAILY@0630 [facility] Administration Lisinopril 2.5 mg 09/12/24 09:00 Lisinopril 2.5 Mg Tablet PO DAILY [facility] Mirtazapine 15 mg 09/12/24 09:00 09/13/24 08:51 Mirtazapine 15 Mg Tablet PO 15 mg DAILY [facility] Administration Morphine Sulfate 15 mg 09/11/24 22:00 09/14/24 06:41 Morphine Sulfate (*Crx) 15 Mg Tabcr PO 15 mg Q8H [facility] Administration Ondansetron HCl 4 mg 09/11/24 19:44 Ondansetron Inj 4 Mg/2 Ml Vial IV PUSH Q6H PRN Nausea And Vomiting Pravastatin Sodium 20 mg 09/12/24 09:00 09/13/24 08:50 Pravastatin Sodium 20 Mg Tablet PO 20 mg DAILY [facility] Administration Propranolol HCl 60 mg 09/12/24 09:00 Propranolol Hcl 60 Mg Capsule Cr PO DAILY [facility] Radiology Results: ITS Impressions Head CT 09/11/24 17:31 IMPRESSION: No acute intracranial findings. Chest X-Ray 09/11/24 18:52 IMPRESSION: No acute cardiopulmonary pathology. Foot CT 09/14/24 06:55 IMPRESSION: No CT evidence for osteomyelitis. Consider MR (if there is no contraindication), for more sensitive evaluation. Nonspecific subcutaneous soft tissue edema. No abscess evident. Labs Labs: Laboratory Results - last 24 hr 09/12/24 09/13/24 09/13/24 05:09 13:01 18:18 WBC RBC Hgb Hct MCV MCH MCHC RDW Plt Count MPV Immature Gran % (Auto) Neut % (Auto) Lymph % (Auto) [place] % (Auto) Eos % (Auto) Baso % (Auto) Lymph # (Auto) [place] # (Auto) Eos # (Auto) Baso # (Auto) Abs Immat Gran (auto) Absolute Neuts (auto) Absolute Nucleated RBC Nucleated RBC % Sodium Potassium Chloride Carbon Dioxide Anion Gap BUN Creatinine Estim Creat Clear Calc Estimated GFR Glucose POC Capillary Glucose 168 H 145 H Calculated Osmolality Calcium Total Bilirubin AST ALT Alkaline Phosphatase Total Protein Albumin Procalcitonin 3.2 09/13/24 09/14/24 22:51 05:19 WBC 7.6 RBC 3.62 L Hgb 10.8 L Hct 31.8 L MCV 87.8 MCH 29.8 MCHC 34.0 RDW 13.4 Plt Count 225 MPV 8.6 L Immature Gran % (Auto) 0.4 H Neut % (Auto) 67.4 Lymph % (Auto) 20.8 [place] % (Auto) 8.7 Eos % (Auto) 2.4 Baso % (Auto) 0.3 Lymph # (Auto) 1.58 [place] # (Auto) 0.66 Eos # (Auto) 0.18 Baso # (Auto) 0.02 Abs Immat Gran (auto) 0.03 H Absolute Neuts (auto) 5.11 Absolute Nucleated RBC 0.00 Nucleated RBC % 0.0 Sodium 137 Potassium 3.5 Chloride 102 Carbon Dioxide 28 Anion Gap 7 BUN 7 Creatinine 0.58 Estim Creat Clear Calc 93 Estimated GFR > 60 Glucose 122 H POC Capillary Glucose 174 H Calculated Osmolality 283 L Calcium 8.5 Total Bilirubin 0.3 AST 13 L ALT 14 Alkaline Phosphatase 59 Total Protein 6.1 L Albumin 2.4 L Procalcitonin Quality VTE Prophylaxis VTE prophylaxis: pharmacologic ordered
[2024-09-14 07:57] LABS: Glucose Point of Care 122 mg/dl (65-105)
[2024-09-14 08:00] VITALS: BP 110/68; PULSE 84; RESP 14; TEMP 36.1; O2SAT 97
[2024-09-14] MEDS: ENOXAPARIN 40 MG/0.4 ML SYRINGE SUB-Q (09:10)
[2024-09-14] MEDS: MIRTAZAPINE 15 MG TABLET PO (09:11)
[2024-09-14] MEDS: SILVERGEL (ELTA) 45 ML 1 APPLIC TOPICAL (09:11)
[2024-09-14] MEDS: DULoxetine HCL 30 MG CAPSULE.DR 60 MG PO (09:11)
[2024-09-14] MEDS: hydrOXYzine HCL 25 MG TABLET PO ×2 (09:11→13:25)
[2024-09-14] MEDS: GABAPENTIN 400 MG CAPSULE PO ×2 (09:11→13:24)
[2024-09-14] MEDS: PRAVASTATIN SODIUM 20 MG TABLET PO (09:11)
[2024-09-14] MEDS: CEFEPIME 2 GM/NS 50 ML 2 GM/50 ML BAG IVPB (09:12)
[2024-09-14] MEDS: ARIPiprazole 5 MG TABLET PO (09:12)
[2024-09-14 10:19] LABS: Vancomycin Trough 9.6 ug/mL (10.0-15.0)
[2024-09-14] MEDS: VANCOMYCIN 1,500 MG/NS 500 ML 1,500 MG/500 ML BAG 250 MG IVPB (11:04)
[2024-09-14 11:51] LABS: Glucose Point of Care 160 mg/dl (65-105)
[2024-09-14 12:00] VITALS: PULSE 82; RESP 14; TEMP 36.9; O2SAT 98
--- NOTE | 2024-09-14 12:42 | P.DS_ITS ---
DS: Admitting Diagnosis Discharge Date 09/14 Admitting Diagnosis fall DS: Discharge Diagnosis Discharge Diagnosis (1) Sepsis: Qualifiers: Sepsis acute organ dysfunction status: with acute organ dysfunction Sepsis type: sepsis due to unspecified organism Severe sepsis acute organ dysfunction type: unspecified Severe sepsis shock status: without septic shock Qualified Code(s): A41.9 - Sepsis, unspecified organism; R65.20 - Severe sepsis without septic shock Code(s): A41.9 - Sepsis, unspecified organism Status: Acute Assessment and Plan: leukocytosis 14.9, temperature 100.1?, tachycardia. suspected source of infection urinary tract infection and left lower extremity cellulitis. * Blood cultures pending, urine culture shows e-coli * patient was initially started on Zosyn. Antibiotics changed to vanc and cefepime. white count on admission was 14.9 and increased to 19 despite Zosy n. WBC 1/3 downtrending to 10.3 * Lactic normal, procalcitonin pending, CRP elevated at 13.7 (2) Acute UTI: Code(s): N39.0 - Urinary tract infection, site not specified Status: Acute Assessment and Plan: UA concerning for possible urinary tract infection * urine culture preliminary growing E coli * past sensitivities reviewed. patient is on cefepime (3) Type 2 diabetes mellitus: Code(s): E11.9 - Type 2 diabetes mellitus without complications Status: Acute Assessment and Plan: hemoglobin A1c 6.4%. patient is on Ozempic 0.5 mg weekly started 3 weeks ago * a.c. HS Accu-Cheks * high-dose SSI based off of BMI greater than 30 * hypoglycemia protocol (4) Hypertension: Code(s): I10 - Essential (primary) hypertension Status: Acute Assessment and Plan: initially patient's home medications were ordered ( propranolol and lisinopril). * blood pressures were soft today when 100s over 30s. * Holding blood pressure agents * monitor blood pressure (5) Cellulitis of left lower leg: Code(s): L03.116 - Cellulitis of left lower limb Status: Acute Assessment and Plan: left lower extremity with concerns for erythema, edema, and pain. suspect cellulitis * there is a possibility of DVT given her recent fall however there is no pitting edema and no previous history of clots. * Venous ultrasound has been ordered nonetheless and will be completed on Saturday * patient is on cefepime and vancomycin * erythema has been outlined and will be monitored. Slightly worsened to the posterior aspect of left calf. * no open area that can be swabbed for culture (6) Diabetic foot ulcers: Code(s): E11.621 - Type 2 diabetes mellitus with foot ulcer; L97.509 - Non-pressure chronic ulcer of other part of unspecified foot with unspecified severity Status: Acute Assessment and Plan: chronic diabetic foot ulcer to left heel. Heel is boggy with small opening with pink wound bed and surrounding callus. No areas draining but there is surrounding erythema that travels up into her lower leg. * CT shows no concerns for osteomyelitis * Control blood glucose * Elevate foot and attempt to keep from putting pressure on heel with ambulation * Wound care recommendations received from wound care at [facility]. Local wound care with silver gel to open wound bed and cover with foam boarder dressing. Change daily. DS: Summary Hospital Course Reason for hospitalization: 09/14 Hospital Course: this is a pleasant 78-year-old lady with a past medical history significant for high blood pressure, diabetes, hypothyroidism, hyperlipidemia, depression and anxiety who presented to the hospital on 09/11 after suffering a fall at home. The patient provides the following history. She states yesterday she was outside on her porch when her left leg would not move. The next thing she remembers is waking up on the ground. She has a life Alert button which she pushed and EMS responded bringing her to the emergency room. She suffered a small superficial abrasion to her nose. She reports over the last few days she has been having complaints of feeling cold, chills, decreased appetite, runny nose, and right lower quadrant abdominal pain. She she thinks she might have become dizzy causing her to faint. She denies any complaints of headache, chest pain, chest palpitation, shortness a breath, nausea, vomiting, constipation, or diarrhea. she reports she was recently seen at her primary care provider's office and he told her she had a urinary tract infection but did not prescribe her antibiotics. She says she was told to let them know if she started having symptoms and they would prescribe antibiotic. In the emergency room labs were significant for white blood cell count 14.9, hemoglobin 12.4, platelets 268, normal coags, sodium 132, potassium 4.0, chloride 94, glucose 129, Mag 1.2, lactic 0.8, troponin negative, and CRP elevated at 13.7. Urinalysis showed a yellow clear urine with trace urine ketones, positive nitrates, trace leukocyte esterase, and 2+ bacteria. Head CT showed no acute intracranial findings and chest x-ray showed no acute cardiopulmonary pathology. Blood and urine cultures were drawn and are pending. EKG showed a sinus tachycardia with a rate of 104 with a left anterior fascicular block. The patient received 2 g of Mag sulfate, 5 mg of lisinopril, and was started on Zosyn and admitted to the floor for further workup. Antibiotics were changes to cefepime and vancomycin. Initially her cellulitis seemed to worsen despite decreasing WBC. She has a diabetic foot ulcer to her left heel and there were some concerns for underlying abscess or osteomyelitis. CT of the foot was completed and was okay. We also checked for a DVT via venous ultrasound and was negative for DVT. She was also found to have a UTI. She continued to improve and over all felt better. She was discharged with oral antibiotics for a total of 10 days. Wound care at [facility] was consulted and provided wound care recs. She was discharged home in stable condition with recommended PCP follow up. Time Spent with Patient Time attestation: Total time spent providing and/or coordinating discharge services: 74 Exam Narrative: General: appears comfortable, in no acute distress Respiratory: breathing is unlabored with even chest rise/fall, lungs are clear without wheezing, rhonchi, and crackles Cardiovascular: Rate and rhythm regular, normal s1s2, no murmur Abdomen: Soft, round, non-tender, active bowel sounds Extremities: No cyanosis, clubbing. Pulses 2/2. Patient has trace bilateral lower extremity edema, +1-2 pitting to left leg, pulses 2/2 Neuro: A&O x 4 Skin: Warm, dry, intact. Her overall color has improved. left lower extremity with distal erythema, warmth, and tenderness. Appears improved on the anterior side of her lower extremity. There is some edema distally to her left knee. She has increased erythema, warmth, and pain into the posterior aspect of her left calf. DS: Data Data Completed and Pending Labs on day of discharge: Labs from last 24 hours 09/14/24 09/14/24 09/14/24 12:46 09:16 08:52 WBC RBC Hgb Hct MCV MCH MCHC RDW Plt Count MPV Immature Gran % (Auto) Neut % (Auto) Lymph % (Auto) [place] % (Auto) Eos % (Auto) Baso % (Auto) Lymph # (Auto) [place] # (Auto) Eos # (Auto) Baso # (Auto) Abs Immat Gran (auto) Absolute Neuts (auto) Absolute Nucleated RBC Nucleated RBC % Sodium Potassium Chloride Carbon Dioxide Anion Gap BUN Creatinine Estim Creat Clear Calc Estimated GFR Glucose POC Capillary Glucose 160 H 122 H Calculated Osmolality Calcium Total Bilirubin AST ALT Alkaline Phosphatase Total Protein Albumin Procalcitonin Vancomycin Trough 9.6 L 09/14/24 09/13/24 09/13/24 05:19 22:51 18:18 WBC 7.6 RBC 3.62 L Hgb 10.8 L Hct 31.8 L MCV 87.8 MCH 29.8 MCHC 34.0 RDW 13.4 Plt Count 225 MPV 8.6 L Immature Gran % (Auto) 0.4 H Neut % (Auto) 67.4 Lymph % (Auto) 20.8 [place] % (Auto) 8.7 Eos % (Auto) 2.4 Baso % (Auto) 0.3 Lymph # (Auto) 1.58 [place] # (Auto) 0.66 Eos # (Auto) 0.18 Baso # (Auto) 0.02 Abs Immat Gran (auto) 0.03 H Absolute Neuts (auto) 5.11 Absolute Nucleated RBC 0.00 Nucleated RBC % 0.0 Sodium 137 Potassium 3.5 Chloride 102 Carbon Dioxide 28 Anion Gap 7 BUN 7 Creatinine 0.58 Estim Creat Clear Calc 93 Estimated GFR > 60 Glucose 122 H POC Capillary Glucose 174 H 145 H Calculated Osmolality 283 L Calcium 8.5 Total Bilirubin 0.3 AST 13 L ALT 14 Alkaline Phosphatase 59 Total Protein 6.1 L Albumin 2.4 L Procalcitonin Vancomycin Trough 09/12/24 05:09 WBC RBC Hgb Hct MCV MCH MCHC RDW Plt Count MPV Immature Gran % (Auto) Neut % (Auto) Lymph % (Auto) [place] % (Auto) Eos % (Auto) Baso % (Auto) Lymph # (Auto) [place] # (Auto) Eos # (Auto) Baso # (Auto) Abs Immat Gran (auto) Absolute Neuts (auto) Absolute Nucleated RBC Nucleated RBC % Sodium Potassium Chloride Carbon Dioxide Anion Gap BUN Creatinine Estim Creat Clear Calc Estimated GFR Glucose POC Capillary Glucose Calculated Osmolality Calcium Total Bilirubin AST ALT Alkaline Phosphatase Total Protein Albumin Procalcitonin 3.2 Vancomycin Trough Preliminary micro results at discharge 09/11/24 17:25 Blood Culture - Preliminary Blood 09/11/24 16:59 Blood Culture - Preliminary Blood Discharge Plan Discharge Attending physician on discharge: Luis Cardenas Discharging Clinician: Megan Rolon Anticipated Discharge Date/Time: 09/14/24 12:33 Patient Disposition: Home, Self-Care Activity: may shower Diet: regular Discharge Instructions: You were admitted with concerns of left lower extremity redness and swelling after sustaining a fall at home. You were also found to have a UTI. You have been treated with IV antibiotics and your symptoms have improved. You do not have a blood clot in your left lower leg. You have a chronic diabetic foot ulcer to your left heel. Please clean this daily with soap and water, pat dry, apply silver gel to the open wound bed, and cover with a foam dressing or gauze. Please change this daily. Please continue with oral antibiotics for a total of 10 days. You need to follow up with your PCP in the next 1 week. Please monitor for worsening signs and symptoms of infection including fever, chills, abdominal pain, nausea, vomiting, or flank pain, worsening redness or pain to your lower leg. Patient Instructions: Antibiotic Form, Doxycycline (By mouth), Amoxicillin/Clavulanate Potassium (By mouth), Cellulitis (ED), Foot Care for People with Diabetes (DC), Fall Prevention for Older Adults (DC), Foot Ulcers in a Person with Diabetes (DC) Stand Alone Forms: General Discharge Information Follow-up/Referrals: Nam Murillo MD [Primary Care Provider] - Call for Appointment Discharge Medications: New doxycycline hyclate 100 mg Tablet 100 mg PO Q12HR Qty: 15 0RF Silver-Sept 200 mcg/gram Gel 1 applic topical DAILY Qty: 45 0RF amoxicillin-pot clavulanate 875-125 mg tablet 1 tablet PO Q12H Qty: 15 0RF Continued ergocalciferol (vitamin D2) [Vitamin D2] 1,250 mcg (50,000 unit) Capsule 1,250 mcg PO WEEKLY cyclobenzaprine 10 mg tablet 10 mg PO TID gabapentin [Neurontin] 400 mg capsule 400 mg PO QID levothyroxine [Synthroid] 100 mcg tablet 100 mcg PO DAILY calcitriol [Rocaltrol] 0.5 mcg capsule 0.5 mcg PO DAILY buspirone 10 mg tablet 10 mg PO TID hydroxyzine HCl 25 mg tablet 25 mg PO TID morphine [MS Contin] 15 mg tablet extended release 15 mg PO Q8H pravastatin 20 mg tablet 20 mg PO DAILY lisinopril [Zestril] 2.5 mg tablet 2.5 mg PO DAILY aripiprazole [Abilify] 5 mg tablet 5 mg PO DAILY duloxetine [Cymbalta] 60 mg capsule,delayed release(DR/EC) 60 mg PO BID propranolol 60 mg capsule,extended release 24 hr 60 mg PO DAILY mirtazapine 15 mg tablet 15 mg PO DAILY vit,[id number] 29 mg iron- 1 mg Tablet 1 tablet PO DAILY mecobalamin (vitamin B12) 1,000 mcg Tablet,Chewable 1,000 mcg PO DAILY Ozempic 0.25 mg or 0.5 mg (2 mg/3 mL) pen injector 0.5 mg SUBCUT WEEKLY calcium citrate 200 mg (950 mg) Tablet 200 mg PO DAILY Date of admission: 09/12/24 14:21 Primary Care Provider: Nam Murillo Admitting Provider: Luis Cardenas Attending physician on admission: Luis Cardenas Condition: Improved Quality VTE Prophylaxis VTE prophylaxis: pharmacologic ordered
--- NOTE | 2024-09-17 09:43 | PC.NURSE ---
Discharge call back completed, doing well, no concerns regarding dc instructions, care was wonderful
== END 2024-09-14 14:15 | disposition home or self-care (01) | DRG 872 ==
LOC: CHSED 19:43 → CHS2ND 19:54
PROVIDERS: Nurse Practitioner Acute Care; Admitting Provider Internal Medicine; Emergency Provider Emergency Medicine; PCP Internal Medicine; Visit Provider Internal Medicine
DX: A41.9 Sepsis, unspecified organism (principal); N39.0 Urinary tract infection, site not specified; L03.116 Cellulitis of left lower limb; L97.429 Non-pressure chronic ulcer of left heel and midfoot with unspecified severity; I10 Essential (primary) hypertension; E11.621 Type 2 diabetes mellitus with foot ulcer; E03.9 Hypothyroidism, unspecified; M19.90 Unspecified osteoarthritis, unspecified site; Z96.651 Presence of right artificial knee joint; Z98.84 Bariatric surgery status
CPT/HCPCS: 36415; 70450; 71045; 73701; 80053; 80202; 81001; 82948; 83605; 83735; 84145; 84484; 85025; 85610; 85730; 86140; 87040; 87077; 87086; 87088; 87186; 87637; 93005; 93971; 96361; 96365; 96366; 96367; 99285; A9270; G0378; J0692; J1650; J2543; J3370; J3475; J7030; Q9967

== ENCOUNTER 2024-09-22 13:02 | Outpatient (CLI) | payer MEDICARE, OTHER, SELFPAY ==
--- NOTE | ~2024-09-22 | DEXA_ITS ---
Bone Density Report Name: MICHELLE SANCHEZ Age: 78 Sex: Female Ethnicity: White Date of : 1945 Indication: osteopenia; height loss; rheumatoid arthritis; secondary osteoporosis; Referring Provider: Nam Murillo Study: Bone densitometry was performed. Exam Date: September 22, 2024 Accession number: [id number] Bone Density: Region BMD T-score Z-score Classification AP Spine(L1, L2) 1.221 2.2 4.5 Normal Femoral Neck (Left) 0.647 -1.8 0.3 Osteopenia Total Hip (Left) 0.816 -1.0 0.8 Normal Femoral Neck (Right) 0.742 -1.0 1.2 Normal Total Hip (Right) 0.786 -1.3 0.6 Osteopenia Femoral Neck Mean 0.695 -1.4 0.8 Osteopenia Total Hip Mean 0.801 -1.2 0.7 Osteopenia World Health Organization criteria for BMD impression classify patients as: Normal (T-score at or above -1.0), Osteopenia (T-score between -1.0 and -2.5), or Osteoporosis (T-score at or below -2.5). 10-year Fracture Risk(1): Major Osteoporotic Fracture 16% Hip Fracture 4.0% Reported Risk Factors: [place] (), Neck BMD=0.647, BMI=37.6, rheumatoid arthritis, secondary osteoporosis (1) FRAX(R) Version 3.08. Fracture probability calculated for an untreated patient. Fracture probability may be lower if the patient has received treatment. Previous Exams: Region Exam Age BMD T-score BMD Change BMD Change Date g/cm2 vs Baseline vs Previous AP Spine (L1-L2) 09/22/2024 78 1.221 2.2 -0.203 (-14.2% 0.029 (2.5%)* 06/10/2023 77 1.191 1.9 -0.232 (-16.3% -0.232 (-16.3% 05/08/2021 75 1.423 4.0 Total Hip(Left) 09/22/2024 78 0.816 -1.0 0.070 (9.3%)# 0.058 (7.7%)* 06/10/2023 77 0.757 -1.5 0.011 (1.5%)# 0.011 (1.5%)# 05/08/2021 75 0.746 -1.6 Total Hip(Right) 09/22/2024 78 0.786 -1.3 0.020 (2.6%)# 0.016 (2.1%) 06/10/2023 77 0.770 -1.4 0.004 (0.5%)# 0.004 (0.5%)# 05/08/2021 75 0.766 -1.4 *Denotes significance at 95% confidence level, LSC for AP Spine = 0.022 g/cm2, LSC for Total Hip = 0.027 g/cm2 # Denotes dissimilar scan types or analysis methods Clinical Information Provided by Patient: Has rheumatoid arthritis Has secondary osteoporosis Has used the following medications: Vitamin D, Calcium, MULTIVITAMIN Patient maximum height was 68 Menopause Age: 52 No regular weight bearing exercise Drinks caffeinated beverages Onset of menses at age 15 Number of children 1 Impression: The patient has low bone mass, based on the Left Femoral Neck T-score. No significant bone loss was observed. Discussion: BONE DENSITY IS LOW AT ONE OR MORE SKELETAL SITES. This patient's lowest T-score is low at one or more skeletal sites. It meets the World Health Organization's (WHO) criteria for ?low bone mass? (T-score between -1.0 and -2.5). The patient's 10-year risk of fracture as calculated by FRAX is less than the threshold where pharmacological therapy is recommended by the National Osteoporosis Foundation (NOF). However, all treatment decisions require clinical judgment and consideration of individual patient factors, including patient preferences, comorbidities, previous drug use, risk factors not captured in the FRAX model (e.g., frailty, falls, vitamin D deficiency, increased bone turnover, interval significant decline in bone density) and possible under or overestimation of fracture risk by FRAX. The patient should follow a healthful lifestyle (good nutrition with adequate calcium and vitamin D, and appropriate weight-bearing exercise). Follow-Up: Consider repeating this study in 2 to 3 years to reassess this patient's status, or sooner if there is some new clinical indication. Reported by: LISSETT on 09/24/2024 1:57:00 PM. Reviewed, dictated and finalized at location A.
== END 2024-09-22 13:03 | disposition home or self-care (01) ==
LOC: CHSIMG 13:12
PROVIDERS: PCP Internal Medicine; Visit Provider Internal Medicine
DX: Z78.0 Asymptomatic menopausal state (principal); M85.89 Other specified disorders of bone density and structure, multiple sites
CPT/HCPCS: 77080

== ENCOUNTER 2024-12-10 09:16 | Outpatient (CLI) | payer MEDICARE, OTHER, SELFPAY ==
[2024-12-10 09:40] LABS: Add Urine Microscopic? YES; Appearance Urine Clear (Clear); Bilirubin Urine Negative (Negative); Blood Urine Negative (Negative); Color Urine Light Yellow (Yellow); Glucose Urine UA Negative (Negative); Ketones Urine Negative (Negative); Leukocyte Esterase Ur 3+ (Negative); Nitrate Urine Negative (Negative); Protein Urine Negative (Negative); Specific Grav Ur <= 1.005 (1.010-1.020); Urobilinogen Urine 0.2 mg/dL (0.2-1.0); pH Urine 6.5 (5.0-8.0)
[2024-12-10 09:42] LABS: Hematocrit 42.2 % (35.0-42.0); Hemoglobin 13.4 g/dL (11.7-13.8); Mean Corpuscular HGB Conc 31.8 g/dL (32-36); Mean Corpuscular Hemoglobin 28.7 pg (27.0-31.0); Mean Corpuscular Volume 90.4 fL (78.0-102.0); Mean Platelet Volume 8.9 fl (9.2-11.8); Platelet Count Result 337 K/mm3 (150-420); Red Blood Count 4.67 M/mm3 (4.20-5.40); Red Cell Distribution Width 12.8 % (11.6-14.4); White Blood Count 8.2 K/mm3 (4.8-10.8)
[2024-12-10 09:49] LABS: Creatinine Urine 33.04 mg/dL (40-278); MALB Creatinine Ratio 39.3 mg/g (0-30); Microalbumin Urine Random < 13.0 mg/L
--- OUTSIDE RECORDS SUMMARY | 2024-12-10 09:49 | XMS_ITS | Patient Health Record ---
Author Organization [facility] Address [address] [place], [place] [id number] Care Team Providers Care Legal Billing Analyst Name Role Phone Kaushik Murillofabio Unavailable Unavailable CEZAR TAYLOR Unavailable [phone] Allergies Allergen (clinical drug ingredient) Drug/Non Drug Allergy documented on EMR Reaction Allergy Type Onset Date Status Non-steroidal anti-inflammatory agent (FN) NSAIDs Unknown Drug Allergy Active Reason For Referral No Information Medications Medication SIG (Take, Route, Frequency, Duration) Notes Start Date End Date Status Propranolol HCl ER 60 MG 1 capsule Orall y Once a day Active Ozempic Active DULoxetine HCl 60 MG 1 capsule Orally On ce a day Active Levothyroxine Sodium 100 MCG 1 tablet in the morning on an empty stomach Orally Once a day Active busPIRone HCl 10 MG 1 tablet Orally Twic e a day Active Gabapentin 400 MG 1 capsule Orally Onc e a day Active Cyclobenzaprine HCl 10 MG 1 tablet at be dtime as needed Orally Once a day Active hydrOXYzine HCl 25 MG 1 tablet as needed Orally Once a day Active oxyCODONE-Acetaminophen Active Calcitriol 0.5 MCG 1 capsule Orally Onc e a day Active Mirtazapine 15 MG 1 tablet at bedtime Orally Once a day Active Pravastatin Sodium 20 MG 1 tablet Orally Once a day Active Morphine Sulfate ER 15 MG 1 tablet Orall y every 12 hrs Active Lisinopril 2.5 MG 1 tablet Orally Once a day Active Vital Signs Height-cm 172.72 cm 04/09/2024 Weight-kg 125.64 kg 04/09/2024 Height 68 in 04/09/2024 Weight 277 lbs 04/09/2024 BMI 42.11 kg/m2 04/09/2024 Encounters Encounter Location Date Provider Diagnosis [address] [id number] 03/19/2024 CEZAR TAYLOR Type 2 diabetes mellitus with foot ulcer E11.621 ; 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 ; 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 ; Localized edema R60.0 ; Unspecified atherosclerosis of [place] arteries of extremities, bilateral legs I70.203 ; Other hammer toe(s) (acquired), right foot M20.41 and Other hammer toe(s) (acquired), left foot M20.[address] [id number] 04/09/2024 CEZAR TAYLOR Type 2 diabetes mellitus with foot ulcer E11.621 ; 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 ; 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 ; Localized edema R60.0 ; Unspecified atherosclerosis of [place] arteries of extremities, bilateral legs I70.203 ; Other hammer toe(s) (acquired), right foot M20.41 ; Other hammer toe(s) (acquired), left foot M20.42 ; Cellulitis of left lower limb L03.116 and Cellulitis of right lower limb L03.115 [facility] [address] [id number] 03/24/2024 CEZAR TAYLOR [facility] [address] [place], [place] [id number] 03/25/2024 CEZAR TAYLOR [facility] [address] [place], [place] [id number] 03/26/2024 CEZAR TAYLRO [facility] [address] [place], [place] [id number] 05/21/2024 CEZAR TAYLOR Assessments Encounter Date Diagnosis (ICD Code) Assessment Notes Treatment Notes Treatment Clinical Notes Section Notes 03/19/2024 Type 2 diabetes mellitus with foot ulcer (ICD-10 - E11.621) Patient educated on proper diabetic foot care and the importance of tight glycemic control in regards to the prevention of diabetic manifestations and symptomatology in lower extremity. Explained to patient the importance of keeping interdigital spaces dry, not walking bare foot, having supportive shoe gear, using moisturizer to skin on feet daily especially in winter months, and checking feet daily for any new lesions or areas suspicious of trauma infection or ulceration. Explained to patient to return to ED if any change in foot health associated with signs of systemic infection including but not limited to nausea, vomiting, fever. 03/19/2024 Non-pressure chronic ulcer of left heel and midfoot with fat layer exposed (ICD-10 - L97.422) The ulcer to bilateral heel was debrided down to bleeding tissue. A dry sterile dressing was applied. The patient was given instruction on home dressing and told to use antibiotic ointment on the wound. The patient was instructed to minimize pressure on the wound and to call the office immediately if the wound should start to worsen. Use of thin layer of antibiotic ointment and dry sterile dressing changes daily, wash wounds with soap and warm water, debridement of wound as tolerated with moist gauze daily. 04/09/2024 Type 2 diabetes mellitus with foot ulcer (ICD-10 - E11.621) Patient educated on proper diabetic foot care and the importance of tight glycemic control in regards to the prevention of diabetic manifestations and symptomatology in lower extremity. Explained to patient the importance of keeping interdigital spaces dry, not walking bare foot, having supportive shoe gear, using moisturizer to skin on feet daily especially in winter months, and checking feet daily for any new lesions or areas suspicious of trauma infection or ulceration. Explained to patient to return to ED if any change in foot health associated with signs of systemic infection including but not limited to nausea, vomiting, fever. 04/09/2024 Non-pressure chronic ulcer of left heel and midfoot with fat layer exposed (ICD-10 - L97.422) The ulcer to bilateral heel was debrided down to bleeding tissue. A dry sterile dressing was applied. The patient was given instruction on home dressing and told to use antibiotic ointment on the wound. The patient was instructed to minimize pressure on the wound and to call the office immediately if the wound should start to worsen. Use of thin layer of antibiotic ointment and dry sterile dressing changes daily, wash wounds with soap and warm water, debridement of wound as tolerated with moist gauze daily. 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 (ICD-10 - L97.412) 03/19/2024 Localized edema (ICD-10 - R60.0) 04/09/2024 Localized edema (ICD-10 - R60.0) 04/09/2024 Unspecified atherosclerosis of [place] arteries of extremities, bilateral legs (ICD-10 - I70.203) Patient educated on risks and aggravating factors of PVD, including conservative treatment options such as a diet and exercise regimen to aid in slowing progression of vascular disease 03/19/2024 Unspecified atherosclerosis of [place] arteries of extremities, bilateral legs (ICD-10 - I70.203) Patient educated on risks and aggravating factors of PVD, including conservative treatment options such as a diet and exercise regimen to aid in slowing progression of vascular disease 03/19/2024 Other hammer toe(s) (acquired), right foot (ICD-10 - M20.41) The patient was educated regarding how to mechanically stabilize their deformity. The patient was given education about shoe recommendations specific for the condition. The patient was educated about custom orthotics and how appropriate shoes and orthotics can prevent further worsening of the deformity. The patient was educated about how bad shoe habits can worsen the condition. NSAIDS, P.T., injections and other conservative treatments were discussed. Both surgical and non surgical treatments were discussed, but conservative options were emphasized. 04/09/2024 Other hammer toe(s) (acquired), right foot (ICD-10 - M20.41) The patient was educated regarding how to mechanically stabilize their deformity. The patient was given education about shoe recommendations specific for the condition. The patient was educated about custom orthotics and how appropriate shoes and orthotics can prevent further worsening of the deformity. The patient was educated about how bad shoe habits can worsen the condition. NSAIDS, P.T., injections and other conservative treatments were discussed. Both surgical and non surgical treatments were discussed, but conservative options were emphasized. 04/09/2024 Other hammer toe(s) (acquired), left foot (ICD-10 - M20.42) 03/19/2024 Other hammer toe(s) (acquired), left foot (ICD-10 - M20.42) 04/09/2024 Cellulitis of left lower limb (ICD-10 - L03.116) The area of cellulitis was evaluated and it should be noted that antibiotics were discussed and a close evaluation was performed to assess the need for IV antibiotics versus oral antibiotics. Due to the non-ascending nature of the cellulitis and with no signs of abscess, topical antibiotics were chosen. Rx augmentin. 04/09/2024 Cellulitis of right lower limb (ICD-10 - L03.115) Plan Of Treatment No Information Insurance Providers Payer Name Payer Address Payer Phone Subscriber Number Group Number Insured Name Patient Relationship to Insured Coverage Start Date Coverage End Date Medicare Part B [facility] [address] [place] [phone] [id number] Eleonora Fregoso Self - patient is the insured [place] [employer] [address] [place] [id number] Eleonora Fregoso Self - patient is the insured Medical (General) History Medical History History ICD Code artificial joint neuropathy Leg/Feet cramps Open Sores MRSA Arthritis Bladder infections urinary tract infection Back Trouble Diabetic restless leg syndrome hypertension Surgical History Surgery Date(Month/Year) Knee Surgery Back Surgery gastric bypass
[2024-12-10 09:50] LABS: Bacteria Urine 2+ /hpf; RBC Urine None seen /hpf (0-2); Squamous Epithelial Cell Urine Few /hpf (Few); WBC Urine 31-50 /hpf (0-3)
--- OUTSIDE RECORDS SUMMARY | 2024-12-10 09:50 | XMS_ITS | Clinical Summary ---
Author Organization [facility] Address [address] [place] [address]. [place], [place] [address] [place] [address] Care Team Providers Care Cooker Helper Name Role Phone Unavailable Primary Care Provider Unavailabl e Social History Tobacco Use Types Packs/Day Years Used Date Smoking Tobacco: Never Assessed Comments Unknown Sex and Gender Information Value Date Recorded Sex Assigned at Not on file Legal Sex Female 8:56 PM CDT Gender Identity Not on file Sexual Orientation Not on file Plan of Treatment Health Maintenance Due Date Last Done Comments Hepatitis C 1965 DTaP, Tdap and Td Vaccines ( 1 - Tdap) 1966 Zoster Vaccines (1 of 2) 1997 Annual Medicare Wellness Visit 2012 Dexa Scan (General) 2012 Pneumococcal Vaccine: 65+ Ye ars (1 of 1 - PCV) 2012 RSV Immunization or 60+ Years (1 - 1-dose 75+ series) 2022 COVID-19 Vaccine ( - 2023-2 5 season) 2024 Influenza Adult (#1) 2024 Meningococcal B Vaccine Aged Out No l onger eligible based on patient's age to complete this topic Meningococcal Vaccine Aged Out No melissa tania eligible based on patient's age to complete this topic RSV Immunizations Under 20 Months Aged Out No longer eligible based on patient's age to complete this topic Insurance [facility] MEDIC[facility]
--- OUTSIDE RECORDS SUMMARY | 2024-12-10 09:50 | XMS_ITS ---
Author Organization [facility] Address [address] [place], [place] [id number] Care Team Providers Care Canal Tender Name Role Phone Nam Murillo Unavailable Unavailable CEZAR TAYLOR Unavailable [phone] Encounters Encounter Location Date Provider Diagnosis [facility] [address] [place], [place] [id number] 05/21/2024 CEZAR TAYLOR Plan Of Treatment No Information Progress Notes * Eleonora FREGOSO LDOB:[birth year] (78 yo F)Acc No.[id number]:05/21/2024 Patient:?Eleonora FREGOSO :1945???Age:78 Y???Sex:Female Address:[address] [place] [address] * true * Date:? Generated for Phoebei stanley/Rosetta/eTransmitting on:?12/10/2024 09:49 AM RECREATION FACILITY ATTENDANT
--- OUTSIDE RECORDS SUMMARY | 2024-12-10 09:50 | XMS_ITS ---
Author Organization [facility] Address [address] [place], [place] [id number] Care Team Providers Care Supervisor Fine Grading Name Role Phone Nam Murillo Unavailable Unavailable CEZAR TAYLOR Unavailable [phone] Encounters Encounter Location Date Provider Diagnosis [facility] [address] [place], [place] [id number] 03/26/2024 CEZAR TAYLOR Plan Of Treatment No Information Progress Notes * Eleonora FREGOSO LDOB:[birth year] (78 yo F)Acc No.[id number]:03/26/2024 Patient:?Eleonora FREGOSO :1945???Age:78 Y???Sex:Female Address:[address] [place] [address] * true * Date:? Generated for Phoebei stanley/Rosetta/eTransmitting on:?12/10/2024 09:49 AM CONTRACT ANALYST
[2024-12-10 09:51] LABS: Hemoglobin A1C 6.8 % (<5.7)
[2024-12-10 10:48] LABS: Alanine Aminotransferase 17 U/L (14-59); Albumin Level 3.7 g/dL (3.4-5.0); Alkaline Phosphatase 92 U/L (46-116); Anion Gap 6 mmol/L (4-12); Aspartate Amino Transferase 11 U/L (15-37); Bilirubin,Total 0.4 mg/dL (0.00-1.00); Blood Urea Nitrogen 16 mg/dL (7-18); Calcium 9.4 mg/dL (8.5-10.1); Carbon Dioxide 34 mmol/L (21-32); Chloride 101 mmol/L (98-108); Cholesterol 144 mg/dL (0-200); Creatine Kinase 41 U/L (26-192); Estimated Glomerular Filt Rate > 60; Free T3 2.54 pg/mL (2.18-3.98); Free T4 Free Thyroxine 0.99 ng/dL (0.76-1.46); Glucose 155 mg/dL (70-99); HDL Direct 67 mg/dL (40-60); LDL Cholesterol Calculated 57 mg/dL (<130); Osmolality Calculated 296 mOsm/kg (285-295); Potassium 4.3 mmol/L (3.5-5.1); Sodium 141 mmol/L (136-145); Thyroid Stimulating Hormone 0.47 uIU/mL (0.36-3.74); Total Protein 7.1 g/dL (6.4-8.2); Triglycerides 102 mg/dL (0-150); Vitamin B12 1269 pg/mL (193-986)
[2024-12-12 04:24] LABS: Vitamin D 25 Hydroxy 58 ng/mL (30-100)
== END 2024-12-10 09:17 | disposition home or self-care (01) ==
LOC: CHSLAB 09:18
PROVIDERS: PCP Internal Medicine; Visit Provider Internal Medicine
DX: R82.81 Pyuria (principal); E03.4 Atrophy of thyroid (acquired); I10 Essential (primary) hypertension; E78.2 Mixed hyperlipidemia; E11.9 Type 2 diabetes mellitus without complications; Z98.84 Bariatric surgery status; M81.0 Age-related osteoporosis without current pathological fracture; K90.9 Intestinal malabsorption, unspecified
CPT/HCPCS: 36415; 80053; 80061; 81001; 82043; 82306; 82550; 82607; 82747; 83036; 84439; 84443; 84481; 84590; 84630; 85027

== ENCOUNTER 2025-02-08 12:29 | Outpatient (CLI) | payer MEDICARE, OTHER, SELFPAY ==
--- NOTE | ~2025-02-08 | US_ITS ---
US retroperitoneal comp 02/08/2025 12:55 Procedure: Realtime transabdominal ultrasound of the kidneys and bladder. Indication: Frequent UTI Comparison: Ultrasound dated 02/06/2013 Findings: Renal echotexture is normal bilaterally without hydronephrosis, contour deforming mass or r enal calculus. The right kidney measures 10.8 cm and left kidney measures 10.1 cm. Bladder within no rmal limits. Impression: 1: Unremarkable renal ultrasound. No stones, masses or hydronephrosis. Reviewed, dictated and finalized at location A. Impression: 1: Unremarkable renal ultrasound. No stones, masses or hydronephrosis.
--- OUTSIDE RECORDS SUMMARY | 2025-02-08 13:34 | XMS_ITS | Patient Health Record ---
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 ; 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 ; Localized edema R60.0 ; Unspecified atherosclerosis of [place] arteries of extremities, bilateral legs I70.203 ; Other hammer toe(s) (acquired), right foot M20.41 and Other hammer toe(s) (acquired), left foot M20.[address] [id number] 04/09/2024 CEZAR TAYLOR Type 2 diabetes mellitus with foot ulcer E11.621 ; 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 ; 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 ; Localized edema R60.0 ; Unspecified atherosclerosis of [place] arteries of extremities, bilateral legs I70.203 ; Other hammer toe(s) (acquired), right foot M20.41 ; Other hammer toe(s) (acquired), left foot M20.42 ; Cellulitis of left lower limb L03.116 and Cellulitis of right lower limb L03.115 [facility] [address] [id number] 03/24/2024 CEZAR TAYLOR [facility] [address] [place], [place] [id number] 03/25/2024 CEZAR TAYLOR [facility] [address] [place], [place] [id number] 03/26/2024 CEZAR TAYLOR [facility] [address] [place], [place] [id number] 05/21/2024 CEZAR TAYLOR Assessments Encounter Date Diagnosis [...] (ICD-10 - R60.0) 04/09/2024 Unspecified atherosclerosis of [place] arteries of extremities, bilateral legs (ICD-10 - I70.203) Patient educated on risks and aggravating factors of PVD, including conservative treatment options such as a diet and exercise regimen to aid in slowing progression of vascular disease 03/19/2024 Unspecified atherosclerosis of [place] arteries of extremities, bilateral legs (ICD-10 - [...] Date Coverage End Date Medicare Part B [facility] [address] [place] [address] [id number] Eleonora Fregoso Self - patient is the insured [place] [employer] [address] [place] [id number] Eleonora Fregoso Self - patient is the insured Medical (General) History Medical History History ICD Code artificial joint neuropathy Leg/Feet cramps Open Sores MRSA Arthritis Bladder infections urinary tract infection Back Trouble Diabetic restless leg syndrome hypertension Surgical History Surgery Date(Month/Year) Knee Surgery Back Surgery gastric bypass
--- OUTSIDE RECORDS SUMMARY | 2025-02-08 13:34 | XMS_ITS ---
Author Organization [facility] Address [address] [place], [place] [id number] Care Team Providers Care Property Investor Name Role Phone Nam Murillo Unavailable Unavailable CEZAR TAYLOR Unavailable [phone] Encounters Encounter Location Date Provider Diagnosis [facility] [address] [place], [place] [phone] 03/26/2024 CEZAR TAYLOR Plan Of Treatment No Information Progress Notes * Eleonora FREGOSO LDOB:[birth year] (78 yo F)Acc No.[id number]:03/26/2024 Patient: Eleonora COLORADO :1945 A ge:78 Y S ex:Female Address:[address] [place] [address] * true * Date: Generated for Printi ng/Fakelsieg/eTransmitting on: 0 02/08/2025 01:34 PM CDT
--- OUTSIDE RECORDS SUMMARY | 2025-02-08 13:35 | XMS_ITS ---
Author Organization [facility] Address [address] [place], [place] [id number] Care Team Providers Care Sem Manager Name Role Phone Chidi Nam Unavailable Unavailable CEZAR TAYLOR Unavailable [phone] REASON FOR VISIT *Wound check Medications Medication SIG (Take, Route, Frequency, Duration) Notes Start Date End Date Status Propranolol HCl ER 60 MG 1 capsule Orall y Once a day Active Amoxicillin-Pot Clavulanate 875-125 MG 1 tablet Orally every 12 hrs for 10 day(s) 04/09/2024 04/19/2024 Active Calcitriol 0.5 MCG 1 capsule Orally Onc e a day Active Pravastatin Sodium 20 MG 1 tablet Orally Once a day Active Lisinopril 2.5 MG 1 tablet Orally Once a day Active DULoxetine HCl 60 MG 1 capsule Orally On ce a day Active Levothyroxine Sodium 100 MCG 1 tablet in the morning on an empty stomach Orally Once a day Active busPIRone HCl 10 MG 1 tablet Orally Twic e a day Active Gabapentin 400 MG 1 capsule Orally Onc e a day Active hydrOXYzine HCl 25 MG 1 tablet as needed Orally Once a day Active Ozempic Active Cyclobenzaprine HCl 10 MG 1 tablet at be dtime as needed Orally Once a day Active oxyCODONE-Acetaminophen Active Mirtazapine 15 MG 1 tablet at bedtime Orally Once a day Active Morphine Sulfate ER 15 MG 1 tablet Orall y every 12 hrs Active Vital Signs Weight 277 lbs 04/09/2024 Weight-kg 125.64 kg 04/09/2024 Height 68 in 04/09/2024 Height-cm 172.72 cm 04/09/2024 BMI 42.11 kg/m2 04/09/2024 Encounters Encounter Location Date Provider Diagnosis [place] [address] [place], [place] [id number] 04/09/2024 CEZAR TAYLOR Type 2 diabetes thao itus with foot ulcer E11.621 ; 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 ; 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 ; Localized edema R60.0 ; Unspecified atherosclerosis of sioux arteries of extremities, bilateral legs I70.203 ; Other hammer toe(s) (acquired), right foot M20.41 ; Other hammer toe(s) (acquired), left foot M20.42 ; Cellulitis of left lower limb L03.116 and Cellulitis of right lower limb L03.115 Assessments Encounter Date Diagnosis (ICD Code) Assessment Notes Treatment Notes Treatment Clinical Notes Section Notes 04/09/2024 Type 2 diabetes mellitus with foot [...] with fat layer exposed (ICD-10 - L97.412) 04/09/2024 Localized edema (ICD-10 - R60.0) 04/09/2024 Unspecified atherosclerosis of sioux arteries of extremities, bilateral legs (ICD-10 - I70.203) Patient educated on risks and aggravating factors of PVD, including conservative treatment options such as a diet and exercise regimen to aid in slowing progression of vascular disease 04/09/2024 Other hammer toe(s) (acquired), right foot [...] limb (ICD-10 - L03.115) Plan Of Treatment Medication Medication Name Sig Start Date Stop Date Notes Amoxicillin-Pot Clavulanate 875-125 MG 1 tablet Orally every 12 hrs for 10 day(s) 04/09/2024 04/19/2024 Treatment Notes Assessment Notes Type 2 diabetes mellitus with foot ulcer Patient educated on proper diabetic foot care [...] but not limited to nausea, vomiting, fever. Non-pressure chronic ulcer o f left heel and midfoot with fat layer exposed The ulcer to bilateral heel was debrided [...] wound as tolerated with moist gauze daily. Unspecified atherosclerosis of sioux arteries of extremities, bilateral legs Patient educated on risks and aggravating factors of PVD, including conservative treatment options such as a diet and exercise regimen to aid in slowing progression of vascular disease Other hammer toe(s) (acquired), right fo ot The patient was educated regarding how to [...] were discussed, but conservative options were emphasized. Cellulitis of left lower limb The area o f cellulitis was evaluated and it should be noted that antibiotics were discussed and a close evaluation was performed to assess the need for IV antibiotics versus oral antibiotics. Due to the non-ascending nature of the cellulitis and with no signs of abscess, topical antibiotics were chosen. Rx augmentin. Next Appt Details Follow Up: prn, Reason: Progress Notes * Eleonora FREGOSO LDOB:[birth year] (78 yo F)Acc No.[id number]:04/09/2024 Patient: Roberth Eleonora BAILEY Provider: Dexter TAYLOR :1945 A ge:78 Y S ex:Female Date:04/09/2024 Address:[address] [place], [place] [id number] Subjective: * Chief Complaints: * 1 . *Wound check. * HPI: H PI: Follow Up Visit P atient presents for follow up visit for wound care , - bilateral. , Patient states their problem is, improving. Pt states she is doing daily dry bandage changes, area is still sore. , MA: As. * ROS: G eneral / Constitutional: Patient denies w eakness. R espiratory: Patient denies c hronic cough, shortness of breath, sputum production. C ardiovascular: Patient denies c hest pain, history of ID, irregular heartbeat. M usculoskeletal: Patient complains of j oint stiffness, joint pain. ? P eripheral Vascular: Patient denies b lanching of skin, cold extremities, decreased sensation in extremities. S kin: Patient complains of u lcerations. N eurologic: Patient denies d izziness, gait abnormality, headache. * Medical History: * Medications: T aking Ozempic , Taking Morphine Sulfate ER 15 MG Tablet Extended Release 1 tablet Orally every 12 hrs , Taking oxyCODONE-Acetaminophen , Taking Mirtazapine 15 MG Tablet 1 tablet at bedtime Orally Once a day , Taking Cyclobenzaprine HCl 10 MG Tablet 1 tablet at bedtime as needed Orally Once a day , Taking hydrOXYzine HCl 25 MG Tablet 1 tablet as needed Orally Once a day , Taking busPIRone HCl 10 MG Tablet 1 tablet Orally Twice a day , Taking Gabapentin 400 MG Capsule 1 capsule Orally Once a day , Taking DULoxetine HCl 60 MG Capsule Delayed Release Particles 1 capsule Orally Once a day , Taking Levothyroxine Sodium 100 MCG Tablet 1 tablet in the morning on an empty stomach Orally Once a day , Taking Propranolol HCl ER 60 MG Capsule Extended Release 24 Hour 1 capsule Orally Once a day , Taking Pravastatin Sodium 20 MG Tablet 1 tablet Orally Once a day , Taking Lisinopril 2.5 MG Tablet 1 tablet Orally Once a day , Taking Calcitriol 0.5 MCG Capsule 1 capsule Orally Once a day Objective: * Vitals: W t: 277 lbs, Wt-k.64 kg, Ht: 68 in, Ht-cm: 172.72 cm, BMI: 42.11 Index, Body Surface Area: 2.45. * Examination: P hysical Examination: V ascular: Dorsalis Pedis pulse noted at 1/4 right foot and 1/4 left foot and Posterior Tibial pulse noted at 1/4 right foot and 1/4 left foot, Capillary refill times noted to be less than three seconds x ten, Temperature gradient noted to be warm to cool to bilateral foot, pedal hair present to bilateral foot and no varicosities are noted Dermatologic: bilateral foot plantar heel wound noted with overlying hyperkeratotic tissue to left heel measuring at 2.2cm x 1.8cm x 0.4cm with a granular base, no undermining, no tunneling noted, no probe to bone, interdigital spaces are noted to be clean dry and intact at this time, periwound erythema is noted to bilateral rearfoot Musculoskeletal: there is no pain to palpation onto nail plate x ten, no calf pain noted bilaterally, arch height noted at 2/5 non-weight bearing bilaterally, first metatarsophalangeal joint range of motion 30 deg non-weight bearing bilaterally, pain to palpation bilateral plantar heel Neurology: protective sensation diminished to light touch bilateral digits one through five, vibratory sensation intact to first metatarsophalangeal joint bilaterally. Assessment: * Assessment: 1. T ype 2 diabetes mellitus with foot ulcer - E11.621 (Primary) 2 . 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 N on-pressure chronic ulcer of right heel and midfoot with fat layer exposed - L97.412 4 . L ocalized edema - R60.0 5 . U nspecified atherosclerosis of sioux arteries of extremities, bilateral legs - I70.203 6 . O ther hammer toe(s) (acquired), right foot - M20.41 7 . O ther hammer toe(s) (acquired), left foot - M20.42 8 . C ellulitis of left lower limb - L03.116 9 . C ellulitis of right lower limb - L03.115 Plan: * Treatment: 2. 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 3. U nspecified atherosclerosis of sioux arteries of extremities, bilateral legs Notes: Patient educated on risks and aggravating factors of PVD, including conservative treatment options such as a diet and exercise regimen to aid in slowing progression of vascular disease ? 4. O ther hammer toe(s) (acquired), right foot Notes: The patient was educated regarding how to [...] were discussed, but conservative options were emphasized. 5. C ellulitis of left lower limb Notes: The area of cellulitis was evaluated and it should be noted that antibiotics were discussed and a close evaluation was performed to assess the need for IV antibiotics versus oral antibiotics. Due to the non-ascending nature of the cellulitis and with no signs of abscess, topical antibiotics were chosen. Rx augmentin. 6. O thers Start Amoxicillin-Pot Clavulanate Tablet, 875-125 MG, 1 tablet, Orally, every 12 hrs, 10 day(s), 20. * Follow Up: p rn * Billing Information: * Visit Code: 62041 Office Visit, Est Pt., Level 3. * Procedure Codes: * Sign off status: Completed true * Provider: Dexter TAYLOR Date: 0 04/09/2024 Generated for Dora angel/Rosetta/Anastasia on: 0 02/08/2025 01:34 PM CDT History and Physical Notes * HPI (History of Present Illness) Category Sub-Category Detail Notes Category Not es HPI Follow Up Visit Patient presents for follow up visit for wound care , - bilateral. , Patient states their problem is, improving. Pt states she is doing daily dry bandage changes, area is still sore. , MA: As Examination Category Sub-Category Detail Notes Category Not es Physical Examination Vascular: Dorsalis Pedis pulse noted at 1/4 right foot and 1/4 left foot and Posterior Tibial pulse noted at 1/4 right foot and 1/4 left foot, Capillary refill times noted to be less than three seconds x ten, Temperature gradient noted to be warm to cool to bilateral foot, pedal hair present to bilateral foot and no varicosities are noted Dermatologic: bilateral foot plantar heel wound noted with overlying hyperkeratotic tissue to left heel measuring at 2.2cm x 1.8cm x 0.4cm with a granular base, no undermining, no tunneling noted, no probe to bone, interdigital spaces are noted to be clean dry and intact at this time, periwound erythema is noted to bilateral rearfoot Musculoskeletal: there is no pain to palpation onto nail plate x ten, no calf pain noted bilaterally, arch height noted at 2/5 non-weight bearing bilaterally, first metatarsophalangeal joint range of motion 30 deg non-weight bearing bilaterally, pain to palpation bilateral plantar heel Neurology: protective sensation diminished to light touch bilateral digits one through five, vibratory sensation intact to first metatarsophalangeal joint bilaterally
--- OUTSIDE RECORDS SUMMARY | 2025-02-08 13:35 | XMS_ITS ---
Author Organization [facility] Address [address] [place], [place] [id number] Care Team Providers Care Animal Breeder Name Role Phone Nam Murillo Unavailable Unavailable CEZAR TAYLOR Unavailable [phone] Encounters Encounter Location Date Provider Diagnosis [facility] [address] [place], [place] [id number] 05/21/2024 CEZAR TAYLOR Plan Of Treatment No Information Progress Notes * Eleonora FREGOSO LDOB:[birth year] (78 yo F)Acc No.[id number]:05/21/2024 Patient: Eleonora COLORADO :1945 A ge:78 Y S ex:Female Address:[address] [place] [address] * true * Date: Generated for Printi ng/Fakelsieg/eTransmitting on: 0 02/08/2025 01:34 PM CDT
--- OUTSIDE RECORDS SUMMARY | 2025-02-08 13:35 | XMS_ITS | Clinical Summary ---
Author Organization [facility] Address [address] [place] [address] Care Team Providers Care Biotech Production Specialist Name Role Phone Unavailable Primary Care Provider [...] Vaccine ( - 2023-2 5 season) 2024 Meningococcal B Vaccine Aged Out No l onger eligible based on patient's age to complete this topic Meningococcal Vaccine Aged Out No melissa tania eligible based on patient's age to complete this topic RSV Immunizations Under 20 Months Aged Out No longer eligible based on patient's age to complete this topic Insurance [facility] MEDIC[facility]
== END 2025-02-08 12:30 | disposition home or self-care (01) ==
LOC: CHSIMG 12:31
PROVIDERS: PCP Internal Medicine; Visit Provider Internal Medicine
DX: N39.0 Urinary tract infection, site not specified (principal)
CPT/HCPCS: 76770

== ENCOUNTER 2025-08-07 14:19 | Outpatient (CLI) | payer MEDICARE, OTHER, SELFPAY ==
--- OUTSIDE RECORDS SUMMARY | 2025-08-07 14:23 | XMS_ITS | Patient Health Record ---
Author Organization [facility] [employer] Address [address] [facility] [address] [place] [address] Care Team Providers Care Sport Internship Name Role Phone Cheryl Jain Unavailable [phone] Reason For Referral No Information Plan Of Treatment No Information
--- OUTSIDE RECORDS SUMMARY | 2025-08-07 14:23 | XMS_ITS | Clinical Summary ---
Author Organization [facility] Address [address] [place] [address] Care Team Providers Care Technology Applications Teacher Name Role Phone Unavailable Primary Care Provider [...] Td Vaccines ( 1 - Tdap) 1966 Pneumococcal Vaccine: 50+ Ye ars (1 of 1 - PCV) 1997 Zoster Vaccines (1 of 2) 1997 Annual Medicare Wellness Visit 2012 Dexa Scan (General) 2012 RSV Immunization or 60+ Years (1 - 1-dose 75+ series) 2022 COVID-19 Vaccine ( - 2023-2 5 season) 2025 Meningococcal B Vaccine Aged Out No l onger eligible based on patient's age to complete this topic Meningococcal Vaccine Aged Out No melissa tania eligible based on patient's age to complete this topic RSV Immunizations Under 20 Months Aged Out No longer eligible based on patient's age to complete this topic Insurance [facility] [place] [address] [place] [phone]
== END 2025-08-07 14:20 | disposition home or self-care (01) ==
PROVIDERS: PCP Internal Medicine; Visit Provider Internal Medicine
DX: I10 Essential (primary) hypertension (principal)
CPT/HCPCS: 36415

== ENCOUNTER 2025-08-19 14:10 | Outpatient (CLI) | payer MEDICARE, OTHER, SELFPAY ==
[2025-08-19 14:48] LABS: Anion Gap 9 mmol/L (4-12); Blood Urea Nitrogen 19 mg/dL (7-17); Calcium 10.0 mg/dL (8.4-10.2); Carbon Dioxide 33 mmol/L (22-30); Chloride 96 mmol/L (98-107); Estimated Glomerular Filt Rate > 60; Glucose 123 mg/dL (65-110); Osmolality Calculated 289 mOsm/kg (285-295); Potassium 5.4 mmol/L (3.4-5.0); Sodium 138 mmol/L (137-145)
== END 2025-08-19 14:11 | disposition home or self-care (01) ==
LOC: CHSLAB 14:12
PROVIDERS: PCP Internal Medicine; Visit Provider Internal Medicine
DX: I10 Essential (primary) hypertension (principal)
CPT/HCPCS: 36415; 80048